=== PATIENT | female | born 1980 | race Caucasian/White ===

== ENCOUNTER 2017-10-21 23:21 | Emergency (ER) | payer OTHER, MEDICAID, SELFPAY ==
[2017-10-21 23:36] VITALS: BP 132/91; PULSE 61; RESP 18; TEMP 36.7; BMI 28.7
[2017-10-22 00:54] VITALS: BP 116/74; PULSE 57; RESP 19; O2SAT 100
[2017-10-22 01:15] LABS: Add Manual Diff / Slide Review NO; Basophils Percent Auto 0.4 % (0-2); Hematocrit 36.1 % (36-46); Hemoglobin 12.2 g/dL (12.0-16.0); Lymphocytes Percent Auto 31.6 % (25-40); Mean Corpuscular HGB Conc 33.7 % (30-36); Mean Corpuscular Hemoglobin 29.8 PG (26-34); Mean Corpuscular Volume 88.4 fL (80-100); Neutrophils Absolute Auto 5400 /uL (3000-5900); Platelet Count 329 X10^3/uL (150-400); Red Blood Cell Count 4.09 X10^6/uL (4.0-5.2); Red Cell Distribution Width 14.6 % (11.6-14.8); White Blood Cell Count 9.4 X10^3/uL (4.5-11.0)
[2017-10-22 01:19] LABS: Alanine Aminotransferase 22 IU/L (9-52); Albumin Globulin Ratio 1.3 (1.0-2.8); Alkaline Phosphatase 72 U/L (38-126); Aspartate Aminotransferase 23 IU/L (14-36); Bilirubin Total 0.2 mg/dL (0.2-1.3); Blood Urea Nitrogen 16 mg/dL (7-17); Calcium 9.1 mg/dL (8.4-10.2); Carbon Dioxide 25 mmol/L (22-32); Chloride 105 mmol/L (98-107); Estimated Glomerular Filt Rate > 60.0 mL/min (>60); Globulin 3.2 g/dL (1.7-4.1); Glucose 94 mg/dL (70-100); HEMOLYSIS < 15 (0-50); Lipase 36 U/L (23-300); Potassium 3.7 mmol/L (3.4-5.1); Sodium 141 mmol/L (137-145); Total Protein 7.2 g/dL (6.3-8.2)
[2017-10-22] MEDS: ONDANSETRON 4 MG/2 ML INJ IV (02:27)
[2017-10-22] MEDS: SODIUM CHLORIDE 0.9% 1,000 ML 1000 ML IV (02:27)
[2017-10-22] MEDS: HYDROMORPHONE 0.5 MG INJ IV (02:28)
[2017-10-22 02:34] VITALS: BP 111/75; PULSE 53; RESP 12; O2SAT 98
--- NOTE | 2017-10-22 02:53 | DI.US.S_ITS ---
PROCEDURE: US ABDOMEN COMPLETE INDICATIONS: ruq and epigastric pain TECHNIQUE: Real-time scanning was performed of the abdominal and retroperitoneal organs, with image documentation. COMPARISON: [facility], CT, ABDOMEN/PELVIS WITH CONTRAST, 01/12/2014, 22:31. FINDINGS: Liver: Liver is normal in size and homogeneous in echotexture. Gallbladder: No gallstones identified. Normal gallbladder wall. No pericholecystic fluid. Negative sonographic Montoya sign. Biliary ducts: Intrahepatic bile ducts are non-dilated. Extrahepatic bile duct caliber measures 3.7 mm. Normal is 6-7 mm or less in diameter, or 10 mm or less post-cholecystectomy. Pancreas: Visualized portions of the pancreas are sonographically normal. Spleen: Spleen is normal in size and homogeneous in echotexture. Kidneys: Kidneys are normal in size and echotexture. Right kidney measures 11.0 cm long; left kidney measures 10.9 cm long. No hydronephrosis or nephrolithiasis. No solid masses. 1 cm simple right renal cyst. Aorta: Visualized aorta is normal in caliber at less than 3 cm. Iliacs: Proximal common iliac arteries are normal in caliber at less than 2.5 cm. IVC: Intrahepatic inferior vena cava is patent. Miscellaneous: No free abdominal fluid. IMPRESSION: No source for right upper quadrant pain identified sonographically. Dictated by: Wally Wagner Ronni Interpreted: Ellyn Hardy MD on 10/22/2017 at 7:34 Approved by: Ellyn Hardy MD, PhD on 10/22/2017 at 13:51
[2017-10-22] MEDS: MAG HYDROX/ALUM/SIMETH 30 ML UDC PO (03:16)
[2017-10-22 03:19] VITALS: BP 118/73; PULSE 56; RESP 18; O2SAT 97
--- NOTE | 2017-10-22 04:43 | DI.RAD.S_ITS ---
PROCEDURE: XR CHEST 1V INDICATIONS: epigastric pain TECHNIQUE: One view of the chest was acquired. COMPARISON: [facility], CR, XR CHEST 1VW (PORTABLE), 05/15/2016, 19:50. FINDINGS: Surgical changes and devices: None. Lungs and pleura: No pleural effusions or pneumothorax. Slight streaky retrocardiac opacity. Mediastinum: Mediastinal contours appear normal. Heart size is normal. Bones and chest wall: No suspicious bony lesions. Overlying soft tissues appear unremarkable. IMPRESSION: Slight streaky retrocardiac opacity. This could be represent atelectasis versus developing airspace disease recommend clinical correlation. Dictated by: Cassandra Viramontes M.D. on 10/22/2017 at 9:22 Approved by: Cassandra Viramontes M.D. on 10/22/2017 at 9:24
[2017-10-22 05:08] VITALS: BP 126/78; PULSE 44; RESP 10; O2SAT 100
[2017-10-22 05:12] LABS: Troponin I < 0.012 ng/mL (0.01-0.034)
--- NOTE | 2017-10-22 05:42 | ED.ABDPAIN ---
HPI - Abdominal Pain General Chief Complaint: Abdominal Pain Stated Complaint: ABD PAIN, NAUSEA Time Seen by Provider: 10/22/17 01:04 History of Present Illness HPI narrative: HPI 37-year-old female recently treated for UTI who terminated her antibiotics really presents for evaluation poorly characterized diffuse but largely epigastric abdominal discomfort, reports dark stool, also endorses taking 800 mg ibuprofen TID for treatment of long-standing right hand pain. Patient denies fever, chills, diarrhea, nausea, vomiting. M/S/F/SocHx notable for: please see HPI; remainder reviewed with patient and in chart. ROS: Negative constitutional, eye, cardiovascular, pulmonary, GI, , MSK, skin, neurologic, psychiatric, endocrine unless noted in the HPI. Exam Gen: Pleasant, non-toxic appearing, resting comfortably. HEENT: NC, AT, PEERL, EOMI. Resp: Clear to auscultation bilaterally, normal work of breathing, no accessory muscle usage. Card: Regular rate and rhythm with no murmurs, rubs, or gallops, extremities warm and well perfused. GI: predominately epigastric tenderness to palpation, no rebound, no guarding, otherwise nontender to palpation throughout all quadrants, no focal tenderness at McBurney's point, equivocal Montoya's sign, non-distended, no rebound or guarding. : No suprapubic tenderness to palpation. MSK: No visible deformities, strength and tone without visually appreciable deficit. Skin: Normal color with no visible lesions. Neuro: AO x 3, no facial asymmetry, vision and hearing WNL. Psych: Mood and affect appropriate. Labs / Imaging: WBC 9.4, Hb 12.2, Na 141, K 3.7, total bilirubin 0.2, AST 23, ALT 22, ALP 72, lipase 36, troponin <0.012 EKG: sinus bradycardia, no ST segment elevations or depressions, no LBBB. CXR: No acute cardiopulmonary disease process. No focal infiltrate, cardiomegaly, rib fractures, or mediastinal widening, lung markings extend to the periphery bilaterally and there are no deep sulci. Radiologist's read pending. negative, FOBT negative UA - negative nitrate, negative leukocyte esterase, negative occult blood. US RUQ: small right renal cyst. MDM Previous chart, nursing note, labs, imaging, and vitals reviewed. A: 37-year-old female recently treated for UTI who terminated her antibiotics really presents for evaluation poorly characterized diffuse but largely epigastric abdominal discomfort, reports dark stool, also endorses taking 800 mg ibuprofen TID for treatment of long-standing right hand pain. DDx: UTI, pyelonephritis, ureterolithiasis, pancreatitis, biliary disease, ulcer, gastritis, pericarditis, myocarditis, ACS, PE Evaluation: patient with a unclear symptom constellation, given the epigastric pain, NSAID use, and dark stools gastritis and/or ulcer appears to be highest on the differential, however/reassuringly patient has a negative FOBT. Given the right upper quadrant pain ultrasound was obtained, this was without evidence of abnormality. EKG is without evidence of ischemia, pericarditis and the patient's troponin is negative - effectively excluding varicose, recruiters, ACS. Chest x-ray without evidence of abnormality. The patient was instructed to pursue empiric treatment for GERD and patient to follow up with her PCP for further care. Impression: Epigastric pain (please reference below for remainder of encounter information) Related Data Previous Rx's Medication Instructions Recorded albuterol sulfate [Ventolin HFA] 2 puff INH QIDP PRN #3 ea 02/15/17 levothyroxine 0.05 mg PO QAM #30 tab 04/12/17 methylprednisolone 21 tab PO SEE INSTRUCTIONS #1 pac 07/29/17 naproxen [Naprosyn] 500 mg PO BID #60 tab 07/29/17 thyroid (pork) 162.5 mg tablet 162.5 mg PO QDAY #90 tab 08/23/17 ciprofloxacin 500 mg tablet 500 mg PO BID #10 tab 10/15/17 ibuprofen 800 mg tablet 800 mg PO TID #90 tab 10/15/17 lorazepam 0.5 mg tablet 0.5 mg PO Q8HP PRN #60 tab 10/15/17 Allergies Allergy/AdvReac Type Severity Reaction Status Date / Time amoxicillin [AMOXICILLIN] Allergy Mild HIVES Verified 10/15/17 15:26 Penicillins [PENICILLINS] Allergy Unknown Verified 10/15/17 15:26 morphine [MORPHINE] AdvReac Mild HALLUCINATI Verified 10/15/17 15:26 ONS oxycodone [OXYCODONE] AdvReac Mild VOMITING Verified 10/15/17 15:26 PFSH Social History Smoking Status: Never smoker alcohol intake: current substance use type: does not use Exam Initial Vital Signs Initial Vital Signs: Vital Signs Temperature 98.1 F 10/21/17 23:36 Pulse Rate 61 10/21/17 23:36 Respiratory Rate 18 10/21/17 23:36 Blood Pressure 132/91 H 10/21/17 23:36 Course Orders Ordered: ED Orders 10/22/17 EKG-12 Lead Routine 10/22/17 00:50 Complete Blood Count AUTO DIFF Stat Comprehensive Metabolic Panel Stat Lipase Stat Troponin I Stat 10/22/17 02:53 US abdomen complete Stat 10/22/17 04:43 XR chest 1V Stat Hydromorphone HCl (Dilaudid) 0.5 mg IV NOW PRN PRN Reason: pain Last Admin: 10/22/17 02:28 Dose: 0.5 mg Discontinued Medications Al Hydrox/Mg Hydrox/Simethicone (Maalox Plus) 30 ml PO NOW ONE Stop: 10/22/17 02:54 Last Admin: 10/22/17 03:16 Dose: 30 ml Sodium Chloride (Normal Saline 0.9%) 1,000 mls @ 1,000 mls/hr IV BOLUS ONE Stop: 10/22/17 02:03 Last Infusion: 10/22/17 03:41 Dose: 0 mls/hr Admin: 10/22/17 02:27 Dose: 1,000 mls/hr Ondansetron HCl (Zofran) 4 mg IV NOW ONE Stop: 10/22/17 01:05 Last Admin: 10/22/17 02:27 Dose: 4 mg Vital Signs - 8 hr 10/21/17 23:36 10/22/17 00:54 10/22/17 02:34 Temperature 98.1 F Pulse Rate 61 57 L 53 L Respiratory Rate 18 19 12 Blood Pressure 132/91 H Blood Pressure [Left Arm] 116/74 111/75 Pulse Oximetry 100 98 10/22/17 03:19 10/22/17 05:08 Temperature Pulse Rate 56 L 44 L Respiratory Rate 18 10 L Blood Pressure Blood Pressure [Left Arm] 118/73 126/78 H Pulse Oximetry 97 100 MDM - Abdominal Pain Lab Data Result diagrams: 10/22/17 00:50 10/22/17 00:50 Lab Results 10/22/17 10/22/17 10/22/17 Range/Units 00:50 00:50 00:50 WBC 9.4 (4.5-11.0) X10^3/uL RBC 4.09 (4.0-5.2) X10^6/uL Hgb 12.2 (12.0-16.0) g/dL Hct 36.1 (36-46) % MCV 88.4 (80-100) fL MCH 29.8 (26-34) PG MCHC 33.7 (30-36) % RDW 14.6 (11.6-14.8) % Plt Count 329 (150-400) X10^3/uL Neut % (Auto) 58.0 (50-75) % Lymph % (Auto) 31.6 (25-40) % [place] % (Auto) 7.0 (3-14) % Eos % (Auto) 3.0 (2-4) % Baso % (Auto) 0.4 (0-2) % Neut # (Auto) 5400 (5025-4878) /uL Sodium 141 (137-145) mmol/L Potassium 3.7 (3.4-5.1) mmol/L Chloride 105 (98-107) mmol/L Carbon Dioxide 25 (22-32) mmol/L BUN 16 (7-17) mg/dL Creatinine 0.80 (0.52-1.04) mg/dL Estimated GFR > 60.0 (>60) mL/min BUN/Creatinine Ratio 20.0 (6-22) Glucose 94 (70-100) mg/dL Calcium 9.1 (8.4-10.2) mg/dL Total Bilirubin 0.2 (0.2-1.3) mg/dL AST 23 (14-36) IU/L ALT 22 (9-52) IU/L Alkaline Phosphatase 72 (38-126) U/L Troponin I < 0.012 (0.01-0.034) ng/mL Total Protein 7.2 (6.3-8.2) g/dL Albumin 4.0 (3.5-5.0) g/dL Globulin 3.2 (1.7-4.1) g/dL Albumin/Globulin Ratio 1.3 (1.0-2.8) Lipase 36 (23-300) U/L Point of care testing: Point of Care Testing Test Results Negative Stool Occult Blood Negative Urine Dip Bedside Urine Glucose Negative Bedside Urine Bilirubin - Negative Bedside Urine Ketone - Negative Urine Specific [place] 1.015 Bedside Urine Occult Blood - Negative Bedside Urine pH 7.5 Bedside Urine Protein - Negative Bedside Urine Urobilinogen - Negative Bedside Urine Nitrite - Negative Bedside Urine Leukocytes - Negative Esterase Discharge Plan Departure Prescriptions: No Action ciprofloxacin HCl 500 mg tablet 500 mg PO BID Qty: 10 RF: 0 ibuprofen 800 mg tablet 800 mg PO TID Qty: 90 RF: 0 lorazepam 0.5 mg tablet 0.5 mg PO Q8HP PRN (Reason: anxiety) Qty: 60 RF: 3 albuterol sulfate [Ventolin HFA] 90 MCG/PUFF HFA aerosol inhaler 2 puff INH QIDP PRNQty: 3 RF: 11 levothyroxine 50 MCG tablet 0.05 mg PO QAM Qty: 30 RF: 5 methylprednisolone 4 MG tablets,dose pack 21 tab PO SEE INSTRUCTIONS Qty: 1 RF: 0 naproxen [Naprosyn] 500 MG tablet 500 mg PO BID Qty: 60 RF: 1 thyroid (pork) [Nature-Throid] 162.5 mg tablet 162.5 mg PO QDAY Qty: 90 RF: 3
--- NOTE | 2017-10-22 05:45 | ED_ITS ---
HPI - Abdominal Pain General Chief Complaint: Abdominal Pain Stated Complaint: ABD PAIN, NAUSEA Time Seen by Provider: 10/22/17 01:04 History of Present Illness HPI narrative: HPI 37-year-old female recently treated for UTI who terminated her antibiotics really presents for evaluation poorly characterized diffuse but largely epigastric abdominal discomfort, reports dark stool, also endorses taking 800 mg ibuprofen TID for treatment of long-standing right hand pain. Patient denies fever, chills, diarrhea, nausea, vomiting. M/S/F/SocHx notable for: please see HPI; remainder reviewed with patient and in chart. ROS: Negative constitutional, eye, cardiovascular, pulmonary, GI, , MSK, skin , neurologic, psychiatric, endocrine unless noted in the HPI. Exam Gen: Pleasant, non-toxic appearing, resting comfortably. HEENT: NC, AT, PEERL, EOMI. Resp: Clear to auscultation bilaterally, normal work of breathing, no accessory muscle usage. Card: Regular rate and rhythm with no murmurs, rubs, or gallops, extremities warm and well perfused. GI: predominately epigastric tenderness to palpation, no rebound, no guarding, otherwise nontender to palpation throughout all quadrants, no focal tenderness at McBurney's point, equivocal Montoya's sign, non-distended, no rebound or guarding. : No suprapubic tenderness to palpation. MSK: No visible deformities, strength and tone without visually appreciable deficit. Skin: Normal color with no visible lesions. Neuro: AO x 3, no facial asymmetry, vision and hearing WNL. Psych: Mood and affect appropriate. Labs / Imaging: WBC 9.4, Hb 12.2, Na 141, K 3.7, total bilirubin 0.2, AST 23, ALT 22, ALP 72, lipase 36, troponin <0.012 EKG: sinus bradycardia, no ST segment elevations or depressions, no LBBB. CXR: No acute cardiopulmonary disease process. No focal infiltrate, cardiomegaly , rib fractures, or mediastinal widening, lung markings extend to the periphery bilaterally and there are no deep sulci. Radiologist's read pending. negative, FOBT negative UA - negative nitrate, negative leukocyte esterase, negative occult blood. US RUQ: small right renal cyst. MDM Previous chart, nursing note, labs, imaging, and vitals reviewed. A: 37-year-old female recently treated for UTI who terminated her antibiotics really presents for evaluation poorly characterized diffuse but largely epigastric abdominal discomfort, reports dark stool, also endorses taking 800 mg ibuprofen TID for treatment of long-standing right hand pain. DDx: UTI, pyelonephritis, ureterolithiasis, pancreatitis, biliary disease, ulcer , gastritis, pericarditis, myocarditis, ACS, PE Evaluation: patient with a unclear symptom constellation, given the epigastric pain, NSAID use, and dark stools gastritis and/or ulcer appears to be highest on the differential, however/reassuringly patient has a negative FOBT. Given the right upper quadrant pain ultrasound was obtained, this was without evidence of abnormality. EKG is without evidence of ischemia, pericarditis and the patient's troponin is negative - effectively excluding varicose, recruiters , ACS. Chest x-ray without evidence of abnormality. The patient was instructed to pursue empiric treatment for GERD and patient to follow up with her PCP for further care. Impression: Epigastric pain (please reference below for remainder of encounter information) Related Data Previous Rx's Medication Instructions Recorded albuterol sulfate [Ventolin HFA] 2 puff INH QIDP PRN #3 ea 02/15/17 levothyroxine 0.05 mg PO QAM #30 tab 04/12/17 methylprednisolone 21 tab PO SEE INSTRUCTIONS #1 pac 07/29/17 naproxen [Naprosyn] 500 mg PO BID #60 tab 07/29/17 thyroid (pork) 162.5 mg tablet 162.5 mg PO QDAY #90 tab 08/23/17 ciprofloxacin 500 mg tablet 500 mg PO BID #10 tab 10/15/17 ibuprofen 800 mg tablet 800 mg PO TID #90 tab 10/15/17 lorazepam 0.5 mg tablet 0.5 mg PO Q8HP PRN #60 tab 10/15/17 Allergies Allergy/AdvReac Type Severity Reaction Status Date / Time amoxicillin [AMOXICILLIN] Allergy Mild HIVES Verified 10/15/17 15:26 Penicillins [PENICILLINS] Allergy Unknown Verified 10/15/17 15:26 morphine [MORPHINE] AdvReac Mild HALLUCINATI Verified 10/15/17 15:26 ONS oxycodone [OXYCODONE] AdvReac Mild VOMITING Verified 10/15/17 15:26 PFSH Social History Smoking Status: Never smoker alcohol intake: current substance use type: does not use Exam Initial Vital Signs Initial Vital Signs: Vital Signs Temperature 98.1 F 10/21/17 23:36 Pulse Rate 61 10/21/17 23:36 Respiratory Rate 18 10/21/17 23:36 Blood Pressure 132/91 H 10/21/17 23:36 Course Orders Ordered: ED Orders 10/22/17 EKG-12 Lead Routine 10/22/17 00:50 Complete Blood Count AUTO DIFF Stat Comprehensive Metabolic Panel Stat Lipase Stat Troponin I Stat 10/22/17 02:53 US abdomen complete Stat 10/22/17 04:43 XR chest 1V Stat Hydromorphone HCl (Dilaudid) 0.5 mg IV NOW PRN PRN Reason: pain Last Admin: 10/22/17 02:28 Dose: 0.5 mg Discontinued Medications Al Hydrox/Mg Hydrox/Simethicone (Maalox Plus) 30 ml PO NOW ONE Stop: 10/22/17 02:54 Last Admin: 10/22/17 03:16 Dose: 30 ml Sodium Chloride (Normal Saline 0.9%) 1,000 mls @ 1,000 mls/hr IV BOLUS ONE Stop: 10/22/17 02:03 Last Infusion: 10/22/17 03:41 Dose: 0 mls/hr Admin: 10/22/17 02:27 Dose: 1,000 mls/hr Ondansetron HCl (Zofran) 4 mg IV NOW ONE Stop: 10/22/17 01:05 Last Admin: 10/22/17 02:27 Dose: 4 mg Vital Signs - 8 hr 10/21/17 23:36 10/22/17 00:54 10/22/17 02:34 Temperature 98.1 F Pulse Rate 61 57 L 53 L Respiratory Rate 18 19 12 Blood Pressure 132/91 H Blood Pressure [Left Arm] 116/74 111/75 Pulse Oximetry 100 98 10/22/17 03:19 10/22/17 05:08 Temperature Pulse Rate 56 L 44 L Respiratory Rate 18 10 L Blood Pressure Blood Pressure [Left Arm] 118/73 126/78 H Pulse Oximetry 97 100 MDM - Abdominal Pain Lab Data Result diagrams: 10/22/17 00:50 10/22/17 00:50 Lab Results 10/22/17 10/22/17 10/22/17 Range/Units 00:50 00:50 00:50 WBC 9.4 (4.5-11.0) X10^3/uL RBC 4.09 (4.0-5.2) X10^6/uL Hgb 12.2 (12.0-16.0) g/dL Hct 36.1 (36-46) % MCV 88.4 (80-100) fL MCH 29.8 (26-34) PG MCHC 33.7 (30-36) % RDW 14.6 (11.6-14.8) % Plt Count 329 (150-400) X10^3/uL Neut % (Auto) 58.0 (50-75) % Lymph % (Auto) 31.6 (25-40) % [place] % (Auto) 7.0 (3-14) % Eos % (Auto) 3.0 (2-4) % Baso % (Auto) 0.4 (0-2) % Neut # (Auto) 5400 (3745-0217) /uL Sodium 141 (137-145) mmol/L Potassium 3.7 (3.4-5.1) mmol/L Chloride 105 (98-107) mmol/L Carbon Dioxide 25 (22-32) mmol/L BUN 16 (7-17) mg/dL Creatinine 0.80 (0.52-1.04) mg/dL Estimated GFR > 60.0 (>60) mL/min BUN/Creatinine Ratio 20.0 (6-22) Glucose 94 (70-100) mg/dL Calcium 9.1 (8.4-10.2) mg/dL Total Bilirubin 0.2 (0.2-1.3) mg/dL AST 23 (14-36) IU/L ALT 22 (9-52) IU/L Alkaline Phosphatase 72 (38-126) U/L Troponin I < 0.012 (0.01-0.034) ng/mL Total Protein 7.2 (6.3-8.2) g/dL Albumin 4.0 (3.5-5.0) g/dL Globulin 3.2 (1.7-4.1) g/dL Albumin/Globulin Ratio 1.3 (1.0-2.8) Lipase 36 (23-300) U/L Point of care testing: Point of Care Testing Test Results Negative Stool Occult Blood Negative Urine Dip Bedside Urine Glucose Negative Bedside Urine Bilirubin - Negative Bedside Urine Ketone - Negative Urine Specific [place] 1.015 Bedside Urine Occult Blood - Negative Bedside Urine pH 7.5 Bedside Urine Protein - Negative Bedside Urine Urobilinogen - Negative Bedside Urine Nitrite - Negative Bedside Urine Leukocytes - Negative Esterase Discharge Plan Departure Prescriptions: No Action ciprofloxacin HCl 500 mg tablet 500 mg PO BID Qty: 10 RF: 0 ibuprofen 800 mg tablet 800 mg PO TID Qty: 90 RF: 0 lorazepam 0.5 mg tablet 0.5 mg PO Q8HP PRN (Reason: anxiety) Qty: 60 RF: 3 albuterol sulfate [Ventolin HFA] 90 MCG/PUFF HFA aerosol inhaler 2 puff INH QIDP PRNQty: 3 RF: 11 levothyroxine 50 MCG tablet 0.05 mg PO QAM Qty: 30 RF: 5 methylprednisolone 4 MG tablets,dose pack 21 tab PO SEE INSTRUCTIONS Qty: 1 RF: 0 naproxen [Naprosyn] 500 MG tablet 500 mg PO BID Qty: 60 RF: 1 thyroid (pork) [Nature-Throid] 162.5 mg tablet 162.5 mg PO QDAY Qty: 90 RF: 3
[2017-10-22 06:16] VITALS: BP 110/70; PULSE 49; RESP 12; O2SAT 98
== END 2017-10-22 06:25 | disposition home or self-care (01) ==
PROVIDERS: Emergency Provider Emergency Medicine; Family Provider Physician Assistant; PCP Physician Assistant
DX: R10.13 Epigastric pain (principal)
CPT/HCPCS: 36591; 71045; 76700; 80053; 81003; 81025; 82272; 83690; 84484; 85025; 93005; 96361; 96374; 96375; 99283; 99285; J1170; J2405

== ENCOUNTER → 2017-10-24 16:15 | Outpatient (CLI) | payer OTHER, MEDICAID, SELFPAY | PROVIDERS: Family Provider Physician Assistant; PCP Physician Assistant; Referring Provider Physician Assistant; Visit Provider Physician Assistant | DX: E06.3 Autoimmune thyroiditis (principal); Z51.81 Encounter for therapeutic drug level monitoring; R10.13 Epigastric pain | CPT/HCPCS: 83013 ==

== ENCOUNTER → 2017-11-08 11:17 | Outpatient (CLI) | payer OTHER, MEDICAID, SELFPAY ==
--- NOTE | 2017-11-08 14:01 | DI.CT.S_ITS ---
PROCEDURE: CT ABDOMEN PELVIS W CON INDICATIONS: EPIGASTRIC PAIN TECHNIQUE: After the administration of oral and intravenous contrast, 5 mm thick sections acquired from the diaphragms to the symphysis. 5 mm thick coronal and sagittal reformats were performed. For radiation dose reduction, the following was used: automated exposure control, adjustment of mA and/or kV according to patient size. COMPARISON: [facility], US, US ABDOMEN COMPLETE, 10/22/2017, 3:43. [facility], CT, ABDOMEN/PELVIS WITH CONTRAST, 01/12/2014, 22:31. FINDINGS: Image quality: Excellent. ABDOMEN: Lung bases: Lung bases are clear. Heart size is normal. Solid organs: Liver is normal in size and enhancement. Gallbladder appears normal. Biliary system is non-dilated. Pancreas enhances normally. Spleen is normal in size and enhancement. No adrenal nodules. Kidneys are normal in size and enhancement, without hydronephrosis. Peritoneum and bowel: Stomach, small bowel, and colon loops are normal in caliber and wall thickness. No free fluid or air. Nodes and vessels: No retroperitoneal or mesenteric adenopathy. Aorta and inferior vena cava are normal in caliber. Miscellaneous: No ventral hernias. PELVIS: Genitourinary: Bladder wall thickness is normal. The uterus is heterogeneous, somewhat enlarged, and appears to contain multiple uterine fibroids at the fundus. The endometrial lining is somewhat distorted by adjacent presumed submucosal fibroids. Note is made of a cystic structure the left ovary measuring up to 3.1 x 3.2 x 4.9 cm in maximal AP, craniocaudad and oblique transverse dimensions. A small amount of free fluid is seen deep within the cul-de-sac posterior and rightward from the cystic structure at the left adnexa. Miscellaneous: No inguinal hernias or adenopathy. Bones: No suspicious bony lesions. No vertebral body compression fractures. IMPRESSION: Large cystic structure with a small amount of adjacent free fluid at the left adnexa, perhaps reflecting a large cyst with adjacent ruptured cyst, requiring sonographic followup. No right-sided adnexal pathology is seen. Pelvic ultrasound is recommended to establish baseline and further characterize the cystic structure at the left ovary area. Elsewhere throughout the peritoneal space there is no abnormal fluid or evidence of peritoneal carcinomatosis. A source of upper epigastric pain is not found. A normal or abnormal appendix could not be located but no secondary CT evidence of acute appendicitis is seen. Dictated by: Andrew Kelsey M.D. on 11/08/2017 at 16:03 Approved by: Andrew Kelsey M.D. on 11/08/2017 at 16:09
== END ==
PROVIDERS: PCP Family Medicine; Visit Provider Family Medicine
DX: R10.13 Epigastric pain (principal); N94.89 Other specified conditions associated with female genital organs and menstrual cycle
CPT/HCPCS: 74177; Q9967

== ENCOUNTER → 2017-11-26 12:15 | Outpatient (CLI) | payer OTHER, MEDICAID, SELFPAY ==
[2017-11-26 13:51] LABS: Free T3, Triiodothyronine Free 3.33 pg/mL (2.77-5.27)
[2017-11-26 14:04] LABS: Cancer Antigen 125 8 U/mL (0-35)
[2017-11-26 14:08] LABS: Appearance Urine UA CLEAR; Bilirubin Urine UA NEGATIVE (NEGATIVE); Color Urine UA YELLOW; Glucose Urine UA NEGATIVE (Normal); Ketones Urine UA NEGATIVE (NEGATIVE); Leukocyte Esterase Urine UA NEGATIVE (NEGATIVE); Nitrite Urine UA Negative (Negative); Occult Blood Urine UA NEGATIVE (Negative); Protein Urine UA NEGATIVE (Negative); Specific Gravity Urine UA 1.015 (1.000-1.035); Urobilinogen Urine UA 0.2 E.U./dL (0.2)
[2017-11-28 14:50] LABS: Thyroid Peroxidase Antibodies < 1 IU/mL (< 9)
[2017-11-28 15:47] LABS: Triiodothyronine T3 Total 140 ng/dL (76-181)
[2017-11-30 13:45] LABS: Human HE4 Antigen 34 pmol/L
[2017-12-03 12:22] LABS: Triiodothyronine T3 Reverse 6 ng/dL (8-25)
== END ==
PROVIDERS: Physician Assistant; PCP Family Medicine; Visit Provider Obstetrics & Gynecology
DX: E06.3 Autoimmune thyroiditis (principal); Z51.81 Encounter for therapeutic drug level monitoring; N94.9 Unspecified condition associated with female genital organs and menstrual cycle; R31.9 Hematuria, unspecified
CPT/HCPCS: 81003; 84443; 84480; 84481; 84482; 86304; 86305; 86376

== ENCOUNTER 2017-11-30 14:57 | Emergency (ER) | payer OTHER, MEDICAID, SELFPAY ==
[2017-11-30] VITALS (7 sets, daily range): BP systolic 112–157; BP diastolic 67–113; PULSE 48–99; RESP 12–55; TEMP 36.9; O2SAT 98–100
--- NOTE | 2017-11-30 15:13 | DI.CT.S_ITS ---
PROCEDURE: CT HEAD/BRAIN WO CON INDICATIONS: stroke symptoms,tpa candidate TECHNIQUE: Noncontrast 4.5 mm thick angled axial sections acquired from the foramen magnum to the vertex, with coronal and sagittal reformats. For radiation dose reduction, the following was used: automated exposure control, adjustment of mA and/or kV according to patient size. COMPARISON: [facility], CT, HEAD WITHOUT CONTRAST, 02/10/2016, 14:07. FINDINGS: Image quality: Excellent. CSF spaces: Basal cisterns are patent. No extra-axial fluid collections. Ventricles are normal in size and shape. Brain: No midline shift. No intracranial masses or hemorrhage. Cronin-white matter interface is normal. Skull and face: Calvarium and visualized facial bones are intact, without suspicious lesions. Sinuses: Visualized sinuses and mastoids are clear. IMPRESSION: No acute intracranial abnormality. Findings relayed to Dr. Kendrick on 11.30.17 at 1527 hrs. Dictated by: Caitlin Ortega M.D. on 11/30/2017 at 15:25 Approved by: Caitlin Ortega M.D. on 11/30/2017 at 15:27
--- NOTE | 2017-11-30 15:16 | ED.EYEPROB ---
HPI - Eye Problem General Chief complaint: Neuro Symptoms/Deficit Stated complaint: SEEING FLASHING LIGHTS NAUCEOUS AND CONFUSED Time Seen by Provider: 11/30/17 15:13 Source: patient Mode of arrival: ambulatory Limitations: no limitations History of Present Illness HPI Narrative: 37F presents to the ED with chief complaint of R eye vision disturbance which started this morning. She complains of bright flashing or stroke being of the vision in her right eye but denies any visual field cuts. She denies any injury. 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 She does not have ongoing ophthalmological coverage. Patient denies pain, redness or watering of her right eye. She denies any history of similar type symptoms in the past. Her symptoms have been present over the course of the day, she denies any provocation, palliation of her symptoms MD chief complaint: vision change Onset (ago): hour(s) Onset description: sudden Duration: constant Location: right eye Associated symptoms: none Treatments Prior to Arrival: none Related Data Previous Rx's Medication Instructions Recorded albuterol sulfate [Ventolin HFA] 2 puff INH QIDP PRN #3 ea 02/15/17 thyroid (pork) 162.5 mg tablet 162.5 mg PO QDAY #90 tab 08/23/17 lorazepam 0.5 mg tablet 0.5 mg PO Q8HP PRN #60 tab 10/15/17 ondansetron 4 mg disintegrating 4 mg PO Q4H #30 tab 10/24/17 tablet Allergies Allergy/AdvReac Type Severity Reaction Status Date / Time amoxicillin [AMOXICILLIN] Allergy Mild HIVES Verified 11/18/17 14:14 Penicillins [PENICILLINS] Allergy Unknown Verified 11/18/17 14:14 morphine [MORPHINE] AdvReac Mild HALLUCINATI Verified 11/18/17 14:14 ONS oxycodone [OXYCODONE] AdvReac Mild VOMITING Verified 11/18/17 14:14 Review of Systems Review of Systems All systems reviewed & are unremarkable except as noted in HPI and below Constitutional Denies chills, Denies fever(s), Denies lethargy and Denies weakness Eyes Reports change in vision, Denies eye discharge, Denies irritation and Denies loss of vision ENT Ears, Nose, Mouth, and Throat: Denies change in voice, Denies neck pain and Denies sore throat Cardiovascular Denies chest pain, Denies irregular heart rhythm, Denies lightheadedness, Denies palpitations, Denies dyspnea, Denies dyspnea on exertion and Denies orthopnea Respiratory Denies cough, Denies dyspnea, Denies dyspnea on exertion and Denies wheezing Gastrointestinal Gastrointestinal: Denies abdominal pain, Denies change in bowel habits, Denies diarrhea, Denies nausea and Denies vomiting Genitourinary Denies hematuria, Denies flank pain, Denies urinary incontinence and Denies urinary urgency Musculoskeletal Denies neck pain Integumentary/Breasts Denies pruritus, Denies erythema, Denies rash and Denies wounds Neurologic Denies confusion, Denies loss of vision and Denies weakness Psychiatric Denies anxiety, Denies confusion, Denies depression, Denies homicidal ideation and Denies suicidal ideation Endocrine Denies palpitations Hematologic/Lymphatic Denies easy bruising Allergic/Immunologic Denies wheezing [facility] Medical History Allergic rhinitis (Chronic 2008) Anxiety (Chronic Unknown) Asthma (Chronic 2004) Carpal tunnel syndrome (Chronic 2013) Chronic back pain (Chronic 2014) Cyst of ovary (Chronic) Depression (Chronic Unknown) Hypothyroidism (Chronic 2009) Migraines (Chronic 2009) PTSD (post-traumatic stress disorder) (Chronic 2009) Partial blindness (Chronic 1981) Anemia (Resolved 2004) Anorexia nervosa (Resolved 1999) Chicken pox (Resolved 1986) Chickenpox (Resolved 1986) Ovarian cyst (Resolved 2001) Shoulder pain (Resolved 2013) Thyroid cancer (Resolved 2009) Thyroid nodule (Resolved 2000) Vertigo (Inactive 2008) Surgical History Anesthesia complication (Resolved) History of thyroidectomy (Resolved 2009) Hx of eye surgery (Resolved 1984) Hx of removal of cyst (Resolved 2013) Hx of tonsillectomy (Resolved 2001) Status post delivery (Resolved 2007) Social History Smoking Status: Never smoker alcohol intake: current substance use type: does not use Exam Narrative Exam Narrative: GEN: AOx3 and in mild distress EYES: Pupils are equal, round, and reactive to light and accommodation. Extraoccular muscles are intact bilaterally. There is no subconjunctival hemorrhage or exudate. OD pressure 35 mmHg, OS 31mmHG. No clinical signs of acute angle closure glaucoma such as redness, fixed pupil, or watering. Visual acuity 20/40. Bedside ultrasound shows no obvious abnormality and lens position, red neck, or optic nerve sheath CHEST: Lungs are clear to auscultation bilaterally and free of wheezes, rales, or rhonchi. Heart rate is regular rhythm, there are no murmurs, clicks, rubs, or gallops. There is no chest wall tenderness. ABD: Abdomen is soft and nontender. There is no guarding or rebound. Bowel sounds are normal in all 4 quadrants. There is no mass or organomegaly. EXT: Full painless ROM of all extremities with no loss of sensation or strength. SKIN: Warm, pink, and dry. No erythema or rash Initial Vital Signs Initial Vital Signs: Vital Signs Temperature 98.4 F 11/30/17 15:05 Pulse Rate 99 H 11/30/17 15:05 Respiratory Rate 20 11/30/17 15:05 Blood Pressure 157/113 H 11/30/17 15:05 Pulse Oximetry 98 11/30/17 15:05 Course Orders Ordered: ED Orders 11/30/17 15:13 CT head/brain wo con Stat EKG-12 Lead Stat 11/30/17 15:25 Basic Metabolic Panel Stat Complete Blood Count AUTO DIFF Stat Partial Thromboplastin Time Stat Prothrombin Time INR Stat 11/30/17 16:35 Urine Drug Screen, Rapid Stat 11/30/17 17:46 Urinalysis and Microscopic Stat Urine Culture Stat Discontinued Medications Sodium Chloride (Normal Saline 0.9%) 1,000 mls @ 150 mls/hr IV CONT ROSS Timolol Maleate (Timoptic 0.25% Ophth) 1 drops EYE-RIGHT NOW ONE Stop: 11/30/17 18:47 Consultations Consultation #1: Attempts made to reach a local oncologist but no call for Ophthalmology locally. Call placed to our review Ophthalmology to discuss this case. We sure the opinion that waiting until Saturday to be seen and evaluated by Ophthalmology is ill-advised in this patient with monocular vision at baseline. I made attempts to call closer facilities but had little success in arranging more prompt Care. I re-contacted José Miguel whom recommended administering a dose of atenolol and transferring patient to the emergency department. I then was transferred to the attending in the emergency department, Dr. Forbes whom was happy to accept. Patient will come POV. Consultation #2: NO TIMOLOL in our night pharmacy Vital Signs - 8 hr 11/30/17 15:05 11/30/17 16:01 11/30/17 17:07 Temperature 98.4 F Pulse Rate 99 H 54 L 51 L Respiratory Rate 20 55 H 12 Blood Pressure 157/113 H Blood Pressure [Right Arm] 129/88 H 112/71 Pulse Oximetry 98 100 100 11/30/17 18:31 11/30/17 19:45 Temperature Pulse Rate 54 L 53 L Respiratory Rate 14 21 Blood Pressure Blood Pressure [Right Arm] 121/76 H 125/76 H Pulse Oximetry 100 100 MDM - Eye Problem Differential Diagnosis Likely other (Retinal abnormality vs. vitreous hemorrhage vs. migraine equivalent vs. other.) Lab Data Attestation: I reviewed the patient's lab results. Result diagrams: 11/30/17 15:25 11/30/17 15:25 Lab Results 11/30/17 11/30/17 11/30/17 Range/Units 15:25 15:25 15:25 WBC 9.2 (4.5-11.0) X10^3/uL RBC 4.29 (4.0-5.2) X10^6/uL Hgb 12.9 (12.0-16.0) g/dL Hct 38.6 (36-46) % MCV 90.1 (80-100) fL MCH 30.2 (26-34) PG MCHC 33.5 (30-36) % RDW 15.2 H (11.6-14.8) % Plt Count 364 (150-400) X10^3/uL Neut % (Auto) 69.5 (50-75) % Lymph % (Auto) 21.3 L (25-40) % Mathews % (Auto) 6.9 (3-14) % Eos % (Auto) 1.8 L (2-4) % Baso % (Auto) 0.5 (0-2) % Neut # (Auto) 6400 H (2248-8919) /uL PT 12.4 (10.1-12.7) SECONDS INR 1.1 (0.9-1.3) APTT 33 (26.4-36.2) SECONDS Sodium 142 (137-145) mmol/L Potassium 3.5 (3.4-5.1) mmol/L Chloride 100 (98-107) mmol/L Carbon Dioxide 32 (22-32) mmol/L BUN 14 (7-17) mg/dL Creatinine 0.80 (0.52-1.04) mg/dL Estimated GFR > 60.0 (>60) mL/min BUN/Creatinine Ratio 17.5 (6-22) Glucose 91 (70-100) mg/dL Calcium 9.9 (8.4-10.2) mg/dL Urine Color Urine Appearance Urine pH (4.5-8.0) Ur Specific Woodson (1.000-1.035) Urine Protein (Negative) Urine Glucose (UA) (Normal) g/dL Urine Ketones (NEGATIVE) Urine Occult Blood (Negative) Urine Nitrate (Negative) Urine Bilirubin (NEGATIVE) Urine Urobilinogen (0.2) E.U./dL Ur Leukocyte Esterase (NEGATIVE) Urine RBC (0-5/HPF) Urine WBC (0-5/HPF) Urine Bacteria (None) Ur Culture Indicated? Micro UA Comment Urine Opiates Screen (Negative) Ur Oxycodone Screen (Negative) Urine Methadone Screen (Negative) Ur Barbiturates Screen (Negative) U Tricyclic Antidepress (Negative) Ur Phencyclidine Scrn (Negative) Ur Amphetamines Screen (Negative) U Methamphetamines Scrn (Negative) Ur MDMA Scrn (Ecstasy) (Negative) U Benzodiazepines Scrn (Negative) Urine Cocaine Screen (Negative) U Marijuana (THC) Screen (Negative) 11/30/17 11/30/17 Range/Units 16:35 17:46 WBC (4.5-11.0) X10^3/uL RBC (4.0-5.2) X10^6/uL Hgb (12.0-16.0) g/dL Hct (36-46) % MCV (80-100) fL MCH (26-34) PG MCHC (30-36) % RDW (11.6-14.8) % Plt Count (150-400) X10^3/uL Neut % (Auto) (50-75) % Lymph % (Auto) (25-40) % Mathews % (Auto) (3-14) % Eos % (Auto) (2-4) % Baso % (Auto) (0-2) % Neut # (Auto) (8547-8464) /uL PT (10.1-12.7) SECONDS INR (0.9-1.3) APTT (26.4-36.2) SECONDS Sodium (137-145) mmol/L Potassium (3.4-5.1) mmol/L Chloride (98-107) mmol/L Carbon Dioxide (22-32) mmol/L BUN (7-17) mg/dL Creatinine (0.52-1.04) mg/dL Estimated GFR (>60) mL/min BUN/Creatinine Ratio (6-22) Glucose (70-100) mg/dL Calcium (8.4-10.2) mg/dL Urine Color Yellow Urine Appearance Clear Urine pH 7.0 (4.5-8.0) Ur Specific Woodson <=1.005 (1.000-1.035) Urine Protein Negative (Negative) Urine Glucose (UA) Negative (Normal) g/dL Urine Ketones Negative (NEGATIVE) Urine Occult Blood Negative (Negative) Urine Nitrate Negative (Negative) Urine Bilirubin Negative (NEGATIVE) Urine Urobilinogen 0.2 (0.2) E.U./dL Ur Leukocyte Esterase Trace H (NEGATIVE) Urine RBC 0-1/hpf (0-5/HPF) Urine WBC 0-1/hpf (0-5/HPF) Urine Bacteria None seen (None) Ur Culture Indicated? Specimen cultured Micro UA Comment Not Reportable Urine Opiates Screen Negative (Negative) Ur Oxycodone Screen Negative (Negative) Urine Methadone Screen Negative (Negative) Ur Barbiturates Screen Negative (Negative) U Tricyclic Antidepress Negative (Negative) Ur Phencyclidine Scrn Negative (Negative) Ur Amphetamines Screen Negative (Negative) U Methamphetamines Scrn Negative (Negative) Ur MDMA Scrn (Ecstasy) Negative (Negative) U Benzodiazepines Scrn Negative (Negative) Urine Cocaine Screen Negative (Negative) U Marijuana (THC) Screen Negative (Negative) Imaging Data CT scan - head: Radiologist's impression: PROCEDURE: CT HEAD/BRAIN WO CON INDICATIONS: stroke symptoms,tpa candidate TECHNIQUE: Noncontrast 4.5 mm thick angled axial sections acquired from the foramen magnum to the vertex, with coronal and sagittal reformats. For radiation dose reduction, the following was used: automated exposure control, adjustment of mA and/or kV according to patient size. COMPARISON: [facility], CT, HEAD WITHOUT CONTRAST, 02/10/2016, 14:07. FINDINGS: Image quality: Excellent. CSF spaces: Basal cisterns are patent. No extra-axial fluid collections. Ventricles are normal in size and shape. Brain: No midline shift. No intracranial masses or hemorrhage. Cronin-white matter interface is normal. Skull and face: Calvarium and visualized facial bones are intact, without suspicious lesions. Sinuses: Visualized sinuses and mastoids are clear. IMPRESSION: No acute intracranial abnormality. Findings relayed to Dr. Kendrick on 11.30.17 at 1527 hrs. Dictated by: Caitlin Ortega M.D. on 11/30/2017 at 15:25 Approved by: Caitlin Ortega M.D. on 11/30/2017 at 15:27 Critical Care Time Critical Care Time: Yes Total Critical Care Time: 30 Attestation: The high probability of a clinically significant, sudden or life threatening deterioration of the [] system(s) required my full and direct attention, intervention and personal management. The aggregate critical care time was [30] minutes. This time is in addition to time spent performing reported procedures but includes the following: [x] Data Review and interpretation [x] Patient assessment and monitoring of vital signs [x] Documentation [x] Medication orders and management Discharge Plan Departure Patient Disposition: [facility] Clinical Impression: Visual field defect Activity Restrictions/Additional Instructions: Please proceed DIRECTLY TO THE [facility] EMERGENCY [facility]PARTMENT, driving instructions included Tell them you were sent by another Emergency Department and that Dr. Forbes in the Emergency Department is expecting you as is Dr. Villagran (ophthalmology) DO NOT EAT OR DRINK ANYTHING Prescriptions: No Action lorazepam 0.5 mg tablet 0.5 mg PO Q8HP PRN (Reason: anxiety) Qty: 60 RF: 3 ondansetron 4 mg tablet,disintegrating 4 mg PO Q4H Qty: 30 RF: 0 albuterol sulfate [Ventolin HFA] 90 MCG/PUFF HFA aerosol inhaler 2 puff INH QIDP PRNQty: 3 RF: 11 thyroid (pork) [Nature-Throid] 162.5 mg tablet 162.5 mg PO QDAY Qty: 90 RF: 3
[2017-11-30 15:37] LABS: Add Manual Diff / Slide Review NO; Basophils Percent Auto 0.5 % (0-2); Eosinophils Percent Auto 1.8 % (2-4); Hematocrit 38.6 % (36-46); Hemoglobin 12.9 g/dL (12.0-16.0); Lymphocytes Percent Auto 21.3 % (25-40); Mean Corpuscular HGB Conc 33.5 % (30-36); Mean Corpuscular Hemoglobin 30.2 PG (26-34); Mean Corpuscular Volume 90.1 fL (80-100); Monocytes Percent Auto 6.9 % (3-14); Neutrophils Absolute Auto 6400 /uL (3000-5900); Neutrophils Percent Auto 69.5 % (50-75); Platelet Count 364 X10^3/uL (150-400); Red Blood Cell Count 4.29 X10^6/uL (4.0-5.2); Red Cell Distribution Width 15.2 % (11.6-14.8); White Blood Cell Count 9.2 X10^3/uL (4.5-11.0)
[2017-11-30 15:45] LABS: INR 1.1 (0.9-1.3); Prothrombin Time 12.4 SECONDS (10.1-12.7)
[2017-11-30 15:47] LABS: PTT Partial Thromboplastin Tim 33 SECONDS (26.4-36.2)
[2017-11-30 16:05] LABS: BUN Creatinine Ratio 17.5 (6-22); Blood Urea Nitrogen 14 mg/dL (7-17); Calcium 9.9 mg/dL (8.4-10.2); Carbon Dioxide 32 mmol/L (22-32); Chloride 100 mmol/L (98-107); Estimated Glomerular Filt Rate > 60.0 mL/min (>60); Glucose 91 mg/dL (70-100); HEMOLYSIS < 15 (0-50); Potassium 3.5 mmol/L (3.4-5.1); Sodium 142 mmol/L (137-145)
[2017-11-30 17:52] LABS: Bacteria Urine None Seen
[2017-11-30 18:01] LABS: Urine Amphetamines Negative (Negative); Urine Barbiturates Negative (Negative); Urine Benzodiazepines Negative (Negative); Urine Cocaine Negative (Negative); Urine MDMA Negative (Negative); Urine Methadone Negative (Negative); Urine Methamphetamines Negative (Negative); Urine Morphine/Opi cutoff 2000 Negative (Negative); Urine Oxycodone Negative (Negative); Urine Phencyclidine Negative (Negative); Urine Tetrahydrocannabinol Negative (Negative); Urine Tricyclic Antidepressant Negative (Negative)
[2017-11-30 18:01] LABS: Appearance Urine UA CLEAR; Bilirubin Urine UA NEGATIVE (NEGATIVE); Color Urine UA YELLOW; Glucose Urine UA NEGATIVE (Normal); Ketones Urine UA NEGATIVE (NEGATIVE); Leukocyte Esterase Urine UA TRACE (NEGATIVE); Nitrite Urine UA Negative (Negative); Occult Blood Urine UA NEGATIVE (Negative); Protein Urine UA NEGATIVE (Negative); Specific Gravity Urine UA <=1.005 (1.000-1.035); Urobilinogen Urine UA 0.2 E.U./dL (0.2)
[2017-11-30 18:08] LABS: Culture Indicated Urine Specimen Cultured; RBC Urine 0-1/HPF (0-5/HPF); WBC Urine 0-1/HPF (0-5/HPF)
== END 2017-11-30 20:05 | disposition short-term general hospital (02) ==
PROVIDERS: Emergency Provider Emergency Medicine; PCP Family Medicine
DX: H53.40 Unspecified visual field defects (principal)
CPT/HCPCS: 36591; 70450; 80048; 80305; 81001; 82962; 85025; 85610; 85730; 87086; 93005; 93010; 99283; 99285

== ENCOUNTER → 2018-03-06 12:24 | Outpatient (CLI) | payer OTHER, MEDICAID, SELFPAY ==
[2018-03-06 13:46] LABS: Thyroid Stimulating Hormone 1.56 uIU/mL (0.47-4.68)
== END ==
PROVIDERS: PCP Family Medicine; Visit Provider Family Medicine
DX: R79.89 Other specified abnormal findings of blood chemistry (principal); Z85.850 Personal history of malignant neoplasm of thyroid
CPT/HCPCS: 36415; 84443

== ENCOUNTER → 2018-07-25 14:27 | Outpatient (CLI) | payer OTHER, MEDICAID, SELFPAY ==
[2018-07-25 15:26] LABS: Add Manual Diff / Slide Review NO; Basophils Absolute Auto 0 /uL (0-100); Basophils Percent Auto 0.4 % (0-2); Eosinophils Absolute Auto 300 /uL (0-450); Eosinophils Percent Auto 2.7 % (2-4); Hematocrit 40.1 % (36-46); Hemoglobin 13.1 g/dL (12.0-16.0); Lymphocytes Absolute Auto 2100 /uL (1100-4500); Lymphocytes Percent Auto 19.8 % (25-40); Mean Corpuscular HGB Conc 32.8 % (30-36); Mean Corpuscular Hemoglobin 29.4 PG (26-34); Mean Corpuscular Volume 89.7 fL (80-100); Monocytes Absolute Auto 700 /uL (0-900); Monocytes Percent Auto 6.5 % (3-14); Neutrophils Absolute Auto 7400 /uL (1500-7000); Neutrophils Percent Auto 70.6 % (50-75); Platelet Count 359 X10^3/uL (150-400); Red Blood Cell Count 4.47 X10^6/uL (4.0-5.2); White Blood Cell Count 10.5 X10^3/uL (4.5-11.0)
[2018-07-25 16:34] LABS: Thyroid Stimulating Hormone 4.38 uIU/mL (0.47-4.68)
== END ==
PROVIDERS: PCP Family Medicine; Visit Provider Nurse Practitioner Family
DX: E89.0 Postprocedural hypothyroidism (principal); R23.8 Other skin changes
CPT/HCPCS: 36415; 84443; 85025

== ENCOUNTER → 2018-12-16 11:53 | Outpatient (CLI) | payer OTHER, MEDICAID, SELFPAY ==
[2018-12-16 12:52] LABS: Add Manual Diff / Slide Review NO; Basophils Absolute Auto 0 /uL (0-100); Basophils Percent Auto 0.2 % (0-2); Eosinophils Absolute Auto 300 /uL (0-450); Eosinophils Percent Auto 4.2 % (2-4); Hematocrit 39.8 % (36-46); Hemoglobin 12.9 g/dL (12.0-16.0); Lymphocytes Absolute Auto 1600 /uL (1100-4500); Lymphocytes Percent Auto 21.5 % (25-40); Mean Corpuscular HGB Conc 32.4 % (30-36); Mean Corpuscular Hemoglobin 29.2 PG (26-34); Monocytes Absolute Auto 400 /uL (0-900); Monocytes Percent Auto 5.8 % (3-14); Neutrophils Absolute Auto 5000 /uL (1500-7000); Neutrophils Percent Auto 68.3 % (50-75); Platelet Count 338 X10^3/uL (150-400); Red Blood Cell Count 4.42 X10^6/uL (4.0-5.2); Red Cell Distribution Width 13.2 % (11.6-14.8); White Blood Cell Count 7.2 X10^3/uL (4.5-11.0)
[2018-12-16 14:08] LABS: Free T3, Triiodothyronine Free 6.33 pg/mL (2.77-5.27); Free T4, Direct Thyroxine 0.77 ng/dL (0.78-2.19)
[2018-12-16 14:21] LABS: Thyroid Stimulating Hormone 0.93 uIU/mL (0.47-4.68)
== END ==
PROVIDERS: PCP Family Medicine; Visit Provider Nurse Practitioner Family
DX: E89.0 Postprocedural hypothyroidism (principal); Z85.850 Personal history of malignant neoplasm of thyroid
CPT/HCPCS: 36415; 84439; 84443; 84481; 85025

== ENCOUNTER → 2019-02-10 11:25 | Outpatient (CLI) | payer OTHER, MEDICAID, SELFPAY | PROVIDERS: PCP Family Medicine; Visit Provider Nurse Practitioner Family | DX: E89.0 Postprocedural hypothyroidism (principal) | CPT/HCPCS: 36415; 84443 ==

== ENCOUNTER 2019-04-24 23:00 | Emergency (ER) | payer OTHER, MEDICAID, SELFPAY ==
--- NOTE | 2019-04-24 23:08 | ED_ITS ---
HPI - Fever General Chief Complaint: Upper Respiratory Symptoms Stated Complaint: states has the flu, trouble breathing Time Seen by Provider: 04/24/19 23:04 Source: patient and family Mode of arrival: Ambulatory Limitations: no limitations History of Present Illness HPI Narrative: 39F nonsmoker with history of asthma presents with 24 hours of fever, body aches, and cough. Two of her children were diagnosed with flu about 10 days ago. She's had some extra use of her bronchodilators, but otherwise has no significant respiratory trouble. She's had no vomiting or diarrhea. MD complaint: fever and malaise Onset (ago): hour(s) Temperature Source: subjective Context: sick contacts and other(s) with similar symptoms Associated symptoms: myalgias, headache, nasal congestion, sore throat and cough Relieving factors: nothing Exacerbating factors: nothing Treatments prior to arrival fever: acetaminophen and ibuprofen Related Data Previous Rx's Medication Instructions Recorded lorazepam 0.5 mg tablet 0.5 mg PO Q8HP PRN #20 tab 07/16/18 albuterol sulfate 90 mcg/actuation 2 puff INHALATION QIDP PRN #2 each 07/25/18 aerosol inhaler thyroid (pork) 15 mg tablet 15 mg PO DAILY #90 tab 02/11/19 thyroid (pork) 120 mg tablet 120 mg PO DAILY #90 tab 03/11/19 thyroid (pork) 30 mg tablet 30 mg PO DAILY #90 tab 03/11/19 ondansetron 4 mg PO TID-QID PRN #10 tab 04/25/19 oseltamivir [Tamiflu] 75 mg PO BID 5 Days #10 cap 04/25/19 Allergies Allergy/AdvReac Type Severity Reaction Status Date / Time amoxicillin [AMOXICILLIN] Allergy Mild HIVES Verified 01/22/19 11:38 Penicillins [PENICILLINS] Allergy Unknown Verified 01/22/19 11:38 morphine [MORPHINE] AdvReac Mild HALLUCINATI Verified 01/22/19 11:38 ONS oxycodone [OXYCODONE] AdvReac Mild VOMITING Verified 01/22/19 11:38 Review of Systems Constitutional Constitutional: Reports body ache(s), Reports chills, Reports fatigue, Reports fever(s), Denies frequent falls, Denies lethargy and Denies weakness Eyes Eyes: Denies change in vision, Denies eye discharge, Denies irritation and Denies loss of vision ENT Ears, Nose, Mouth, and Throat: Denies change in voice, Denies dizziness, Denies neck pain, Reports sore throat and Denies throat swelling Cardiovascular Cardiovascular: Denies chest pain, Denies irregular heart rhythm, Denies lightheadedness, Denies palpitations, Denies dyspnea, Denies dyspnea on exertion and Denies orthopnea Respiratory Respiratory: Reports cough, Denies dyspnea, Denies dyspnea on exertion and Denies wheezing Gastrointestinal Gastrointestinal: Denies abdominal pain, Denies change in bowel habits, Denies diarrhea, Denies nausea and Denies vomiting Genitourinary Genitourinary: Denies hematuria, Denies flank pain, Denies urinary incontinence and Denies urinary urgency Musculoskeletal Musculoskeletal: Denies back pain, Denies muscle weakness, Denies neck pain, Denies numbness and Denies tingling Integumentary/Breasts Skin/Breast: Denies pruritus, Denies erythema, Denies rash and Denies wounds Neurologic Neurologic: Denies behavioral changes, Denies confusion, Denies dizziness, Denies frequent falls, Denies loss of vision, Denies numbness, Denies tingling and Denies weakness Psychiatric Psychiatric: Denies anxiety, Denies behavioral changes, Denies confusion, Denies depression, Denies homicidal ideation and Denies suicidal ideation Endocrine Endocrine: Reports fatigue, Denies flushing and Denies palpitations Hematologic/Lymphatic Hematologic/Lymphatic: Denies easy bruising Allergic/Immunologic Allergic/Immunologic: Denies urticaria, Denies throat swelling and Denies wheezing Patient History Medical History Allergic rhinitis (Chronic 2008) Anemia (Resolved 2004) Anorexia nervosa (Resolved 1999) Anxiety (Chronic Unknown) Asthma (Chronic 2004) Carpal tunnel syndrome (Chronic 2013) Chicken pox (Resolved 1986) Chickenpox (Resolved 1986) Chronic back pain (Chronic 2014) Cyst of ovary (Chronic) Depression (Chronic Unknown) Hypothyroidism (Chronic 2008) Migraines (Chronic 2009) Ovarian cyst (Resolved 2001) Partial blindness (Chronic 1981) PTSD (post-traumatic stress disorder) (Chronic 2009) Shoulder pain (Resolved 2013) Thyroid cancer (Resolved 2009) Thyroid nodule (Resolved 2000) Vertigo (Inactive 2008) Surgical History Anesthesia complication (Resolved) History of thyroidectomy (Resolved 2009) Hx of eye surgery (Resolved 1984) Hx of removal of cyst (Resolved 2013) Hx of tonsillectomy (Resolved 2001) Status post delivery (Resolved 2007) Family History Father Dementia Mental health problem Addiction Mother Diabetes mellitus Heart attack Hypertension Uterine cancer Heart disease Grandfather Cancer Heart disease Hypertension Hyperlipidemia Stroke Pancreatic cancer Lung cancer Grandmother Diabetes mellitus Hypertension Mental health problem Blood infection Grandfather Heart disease Stroke Grandmother Diabetes mellitus Social History Smoking Status: Never smoker alcohol intake: current substance use type: does not use Smoking Status: Never smoker alcohol intake frequency: 0-2 drinks per day Substance Use Type: does not use Exam Narrative Exam Narrative: GENERAL: [39] year old patient appears stated age. Well- nourished, well-developed patient, in mild distress. HEAD: Atraumatic. Normocephalic. EYES: Pupils equal round and reactive. Extraocular motions intact. No scleral icterus. No injection or drainage. ENT: Nose without bleeding, purulent drainage. Throat without erythema, tonsillar hypertrophy or exudate. Airway patent. NECK: Trachea midline. Non tender CARDIOVASCULAR: Regular rate and rhythm without murmurs, gallops, or rubs. RESPIRATORY: Clear to auscultation. Breath sounds equal bilaterally. No wheezes, rales, or rhonchi. GASTROINTESTINAL: Abdomen soft, non-tender, nondistended. EXTREMITIES: No edema or joint tenderness. BACK: Nontender without deformity or crepitance. No flank tenderness. NEURO: AOx3. SKIN: No rash or erythema of visible areas Initial Vital Signs Initial Vital Signs: Vital Signs Temperature 99 F 04/24/19 23:10 Pulse Rate 104 H 04/24/19 23:10 Respiratory Rate 20 04/24/19 23:10 Blood Pressure 118/74 04/24/19 23:10 Pulse Oximetry 98 04/24/19 23:10 Course Orders Ordered: ED Orders 04/24/19 23:09 XR chest 2V Stat 04/24/19 23:15 Influenza A & B (PCR) Stat Discontinued Medications Ondansetron HCl (Zofran Odt Prepack) 1 bottle MISC SEEINSTR ONE Stop: 04/25/19 00:21 Last Admin: 04/25/19 00:33 Dose: 1 bottle Documented by: HGZHANEN Vital Signs Vital signs: Vital Signs - 8 hr 04/24/19 23:10 04/25/19 00:39 Temperature 99 F Pulse Rate 104 H 68 Respiratory Rate 20 18 Blood Pressure 118/74 114/73 Pulse Oximetry 98 94 MDM - Fever Lab Data Labs: Lab Results 04/24/19 Range/Units 23:15 Influenza A (RT-PCR) Flu a negative (NEGATIVE) Influenza B (RT-PCR) Flu b positive H (NEGATIVE) Imaging Data Chest x-ray: Attestation: I personally reviewed and interpreted this imaging study as follows: My Impression: NAP Discharge Plan Departure Patient Disposition: Home Clinical Impression: Influenza B Discharge Date/Time: 04/25/19 00:45 Instructions: DI for Influenza -- Adult Activity Restrictions/Additional Instructions: *You have been diagnosed with [influenza B] *What to do: *Take medications as directed *Follow up with your primary care provider in 2-3 days, call for an appointment. Let them know you were seen in the Emergency Department and that we ask that you be seen in follow up *Return to ER if you should have any new, worsening or concerning symptoms Prescriptions: New oseltamivir [Tamiflu] 75 mg capsule 75 mg PO BID 5 Days Qty: 10 RF: 0 ondansetron 4 mg tablet,disintegrating 4 mg PO TID-QID PRN (Reason: nausea and vomiting) Qty: 10 RF: 0 No Action albuterol sulfate [Ventolin HFA] 90 mcg/actuation HFA aerosol inhaler 2 puff INHALATION QIDP PRN (Reason: shortness of breath or wheezing) Qty: 2 RF: 11 lorazepam 0.5 mg tablet 0.5 mg PO Q8HP PRN (Reason: anxiety) Qty: 20 RF: 0 thyroid (pork) 15 mg tablet 15 mg PO DAILY Qty: 90 RF: 0 thyroid (pork) [CAPPER MACHINE OPERATOR Thyroid] 120 mg tablet 120 mg PO DAILY Qty: 90 RF: 0 thyroid (pork) [CAPPER MACHINE OPERATOR Thyroid] 30 mg tablet 30 mg PO DAILY Qty: 90 RF: 0 Referrals: Grant,Kimberly, DO [Primary Care Provider] -
--- NOTE | 2019-04-24 23:09 | DI.RAD.S_ITS ---
PROCEDURE: XR CHEST 2V INDICATIONS: Short of breath TECHNIQUE: 2 views of the chest were acquired. COMPARISON: [facility], CR, XR CHEST 1V, 10/22/2017, 4:49. FINDINGS: Surgical changes and devices: None. Lungs and pleura: Lungs are clear. No pleural effusions or pneumothorax. Mediastinum: Mediastinal contours are normal. Heart size is normal. Bones and chest wall: No suspicious bony abnormalities. Soft tissues appear unremarkable. IMPRESSION: Normal chest plain films. Dictated by: Artis Haywood M.D. on 04/25/2019 at 8:44 Approved by: Artis Haywood M.D. on 04/25/2019 at 8:45
[2019-04-24 23:10] VITALS: BP 118/74; PULSE 104; RESP 20; TEMP 37.2; O2SAT 98
[2019-04-24 23:47] LABS: Influenza A - CEPHEID Flu A NEGATIVE (NEGATIVE); Influenza B - CEPHEID Flu B POSITIVE (NEGATIVE)
[2019-04-25] MEDS: ONDANSETRON 4 MG ODT PREPACK 1 BOTTLE MISC (00:33)
[2019-04-25 00:39] VITALS: BP 114/73; PULSE 68; RESP 18; O2SAT 94
== END 2019-04-25 00:45 | disposition home or self-care (01) ==
PROVIDERS: Emergency Provider Emergency Medicine; PCP Family Medicine
DX: J10.1 Influenza due to other identified influenza virus with other respiratory manifestations (principal)
CPT/HCPCS: 71046; 87502; 99283

== ENCOUNTER → 2019-05-27 13:03 | Outpatient (CLI) | payer OTHER, MEDICAID, SELFPAY ==
[2019-05-27 16:32] LABS: Thyroid Stimulating Hormone 2.96 uIU/mL (0.47-4.68)
== END ==
PROVIDERS: PCP Family Medicine; Referring Provider Nurse Practitioner Family; Visit Provider Nurse Practitioner Family
DX: E03.9 Hypothyroidism, unspecified (principal)
CPT/HCPCS: 36415; 84443

== ENCOUNTER 2019-07-07 19:24 | Emergency (ER) | payer OTHER, MEDICAID, SELFPAY ==
--- NOTE | 2019-07-07 19:30 | ED.EXTPRO ---
HPI - Extremity Problem General Chief complaint: Extremity Injury, Lower Stated complaint: rt foot pain Time Seen by Provider: 07/07/19 19:29 Source: patient and old records reviewed Mode of arrival: Ambulatory Limitations: no limitations History of Present Illness HPI Narrative: 39-year-old female who comes to the emergency department complaint of pain in her right foot. Patient states she dropped a can of food on her right foot from above her head when getting out of a cabinet. Patient states she has pain. She denies any numbness or tingling. Patient states it is painful to walk. It is painful her to flex or extend her foot. Painful to move her toes. She has a small cut on her foot. She states her tetanus is up-to-date. She denies any other current issues recently. That she has also had history of cancer in the past. Related Data Previous Rx's Medication Instructions Recorded lorazepam 0.5 mg tablet 0.5 mg PO Q8HP PRN #20 tab 07/16/18 albuterol sulfate 90 mcg/actuation 2 puff INHALATION QIDP PRN #2 each 07/25/18 aerosol inhaler ondansetron 4 mg PO TID-QID PRN #10 tab 04/25/19 thyroid (pork) 120 mg tablet 120 mg PO DAILY #90 tab 05/27/19 thyroid (pork) 15 mg tablet 15 mg PO DAILY #90 tab 05/27/19 thyroid (pork) 30 mg tablet 30 mg PO DAILY #90 tab 05/27/19 Allergies Allergy/AdvReac Type Severity Reaction Status Date / Time amoxicillin [AMOXICILLIN] Allergy Mild HIVES Verified 01/22/19 11:38 Penicillins [PENICILLINS] Allergy Unknown Verified 01/22/19 11:38 morphine [MORPHINE] AdvReac Mild HALLUCINATI Verified 01/22/19 11:38 ONS oxycodone [OXYCODONE] AdvReac Mild VOMITING Verified 01/22/19 11:38 Review of Systems Review of Systems ROS Unobtainable: All systems reviewed & are unremarkable except as noted in HPI and below Patient History Medical History Allergic rhinitis (Chronic 2008) Anemia (Resolved 2004) Anorexia nervosa (Resolved 1999) Anxiety (Chronic Unknown) Asthma (Chronic 2004) Carpal tunnel syndrome (Chronic 2014) Chicken pox (Resolved 1986) Chickenpox (Resolved 1986) Chronic back pain (Chronic 2015) Cyst of ovary (Chronic) Depression (Chronic Unknown) Hypothyroidism (Chronic 2008) Migraines (Chronic 2009) Ovarian cyst (Resolved 2001) Partial blindness (Chronic 1981) PTSD (post-traumatic stress disorder) (Chronic 2009) Shoulder pain (Resolved 2013) Thyroid cancer (Resolved 2009) Thyroid nodule (Resolved 2000) Vertigo (Inactive 2008) Surgical History Anesthesia complication (Resolved) History of thyroidectomy (Resolved 2009) Hx of eye surgery (Resolved 1984) Hx of removal of cyst (Resolved 2013) Hx of tonsillectomy (Resolved 2001) Status post delivery (Resolved 2007) Social History Smoking Status: Never smoker alcohol intake: current substance use type: does not use Smoking Status: Never smoker alcohol intake frequency: 0-2 drinks per day Substance Use Type: does not use Exam Narrative Exam Narrative: GENERAL: Alert and oriented x three, well-nourished female in mild distress. HEENT: Head normocephalic, atraumatic, EOMI, pupils reactive, face symmetric, moist mucous membranes NECK: Supple, full range of motion EXTREMITIES: Normal range of motion, patient does have increased pain with movement of her toes. She has some tenderness over the 4th metatarsal and very mildly over the 5th. She has some swelling over the 4th metatarsal region about mid foot on the dorsum of the foot. There is a small superficial laceration 0.75cm, over the dorsum of the foot. Patient has normal sensation throughout the rest the foot. No bony tenderness of the toes ankle or right lower extremity. She has some mild erythema and swelling over the site of laceration. No clubbing or generalized edema. Neurovascularly intact, cap refills less than 2 seconds. Patient able to ambulated with mild discomfort. NEUROLOGICAL: Cranial nerves II through XII grossly intact. Moving all extremities SKIN: Warm, dry, no petechiae, no rashes or lesions. Initial Vital Signs Initial Vital Signs: Vital Signs Temperature 97.9 F 07/07/19 19:35 Pulse Rate 89 07/07/19 19:35 Respiratory Rate 16 07/07/19 19:35 Blood Pressure 144/77 H 07/07/19 19:35 Pulse Oximetry 99 07/07/19 19:35 Course Orders Ordered: ED Orders 07/07/19 19:36 XR foot RT min 3V Stat Vital Signs Vital signs: Vital Signs - 8 hr 07/07/19 19:35 Temperature 97.9 F Pulse Rate 89 Respiratory Rate 16 Blood Pressure 144/77 H Pulse Oximetry 99 MDM - Extremity (Nontraumatic) Imaging Data right foot xray: Radiologist's Impression: [address] [address] XRay Report Signed Patient: Yesy Cunningham DMR#: [id number] : 1980Acct:[id number] Age/Sex: 39 / FDate of Service: 07/07/19 Loc: ED Accession Number: [id number] Procedure: XR foot RT min 3V Ordering Provider: Mindi Amador D.O. PROCEDURE: XR FOOT RT MIN 3V INDICATIONS: dorsal foot pain, dropped can on foot TECHNIQUE: 3 views of the foot were acquired. COMPARISON: None. FINDINGS: Bones: No definite fractures or dislocations. No suspicious bony lesions. Soft tissues: No tibiotalar joint effusion. Achilles tendon appears normal. IMPRESSION: 1. No fracture or dislocation. Dictated by: Porter Greco M.D. on 07/07/2019 at 19:52 Approved by: Porter Greco M.D. on 07/07/2019 at 19:56 MDM Narrative Medical decision making narrative: Patient's x-ray is negative. She has a small superficial laceration. Her tetanus is up-to-date. Symptomatic management. Did discuss that she needs return in 7-10 days if she is not having improvement in her symptoms for repeat imaging as there is potential for occult fracture. Patient was able to ambulate on her foot here but I did discuss trying a hard-soled shoe as this may be more comfortable. Discharge Plan Departure Patient Disposition: Home Clinical Impression: Laceration of foot, right Qualifiers: Encounter type: initial encounter Qualified Code(s): S91.311A - Laceration without foreign body, right foot, initial encounter Contusion of foot Qualifiers: Encounter type: initial encounter Laterality: right Qualified Code(s): S90.31XA - Contusion of right foot, initial encounter Instructions: DI for Contusion Activity Restrictions/Additional Instructions: Follow-up in 7-10 days if your symptoms are not improving for repeat imaging, rarely there can be small fractures that are not noted until there is healing the 7-10 day range. If your symptoms have resolved do not a follow-up. Weight bear as tolerated. Wear a hard-soled shoe. You may use ibuprofen and/or Tylenol as needed for pain. Elevate the foot when her not walking. Rest when you are able. You may elevate and ice regularly. Wound Care: Keep wound(s) clean and dry. Wash daily with soap and water only. Do not use over the counter products (alcohol or peroxide)on the wounds unless instructed by a physician, you may use a triple antibiotic ointment twice daily to the affected area. If wound condition worsens (increased/expanding redness, developing fluid blisters, or worsening pain), either contact your doctor for an urgent re-assessment , or return to the Emergency Department. Return to the Emergency Department for any new or worsening symptoms. Return if fever greater than 100.4 Fahrenheit, increased swelling, increasing pain or worsening symptoms such as increased discharge or spreading redness. Prescriptions: No Action albuterol sulfate [Ventolin HFA] 90 mcg/actuation HFA aerosol inhaler 2 puff INHALATION QIDP PRN (Reason: shortness of breath or wheezing) Qty: 2 RF: 11 lorazepam 0.5 mg tablet 0.5 mg PO Q8HP PRN (Reason: anxiety) Qty: 20 RF: 0 thyroid (pork) [DRUM SEALER Thyroid] 120 mg tablet 120 mg PO DAILY Qty: 90 RF: 1 thyroid (pork) [DRUM SEALER Thyroid] 30 mg tablet 30 mg PO DAILY Qty: 90 RF: 1 thyroid (pork) 15 mg tablet 15 mg PO DAILY Qty: 90 RF: 1 ondansetron 4 mg tablet,disintegrating 4 mg PO TID-QID PRN (Reason: nausea and vomiting) Qty: 10 RF: 0 Referrals: Kimberly Burns DO [Primary Care Provider] -
[2019-07-07 19:35] VITALS: BP 144/77; PULSE 89; RESP 16; TEMP 36.6; O2SAT 99
--- NOTE | 2019-07-07 19:36 | DI.RAD.S_ITS ---
PROCEDURE: XR FOOT RT MIN 3V INDICATIONS: dorsal foot pain, dropped can on foot TECHNIQUE: 3 views of the foot were acquired. COMPARISON: None. FINDINGS: Bones: No definite fractures or dislocations. No suspicious bony lesions. Soft tissues: No tibiotalar joint effusion. Achilles tendon appears normal. IMPRESSION: 1. No fracture or dislocation. Dictated by: Porter Greco M.D. on 07/07/2019 at 19:52 Approved by: Porter Greco M.D. on 07/07/2019 at 19:56
--- NOTE | 2019-07-07 20:14 | PC.NURSE ---
PT states R foot pain post dropping can on foot from cupboard above, pt has small lac to top of foot, able to partially bear weight and upto date on tetanus.
== END 2019-07-07 20:12 | disposition home or self-care (01) ==
PROVIDERS: Emergency Provider Emergency Medicine; PCP Family Medicine
DX: S91.311A Laceration without foreign body, right foot, initial encounter (principal); S90.31XA Contusion of right foot, initial encounter; W22.8XXA Striking against or struck by other objects, initial encounter
CPT/HCPCS: 73630; 99281; 99283

== ENCOUNTER → 2019-07-14 20:00 | Outpatient (ROUT) | payer OTHER, MEDICAID, SELFPAY ==
[2019-07-17 04:07] LABS: COVID19 Sendout Not Detected (Not Detected)
== END ==
PROVIDERS: PCP Family Medicine; Visit Provider Physician Assistant
DX: R05 Cough (principal)
CPT/HCPCS: 87635

== ENCOUNTER → 2019-07-28 12:33 | Outpatient (CLI) | payer OTHER, MEDICAID, SELFPAY | PROVIDERS: PCP Family Medicine; Visit Provider Physician Assistant | DX: R30.0 Dysuria (principal) | CPT/HCPCS: 87086 ==

== ENCOUNTER 2019-10-29 06:21 | Emergency (ER) | payer OTHER, MEDICAID, SELFPAY ==
[2019-10-29 06:32] VITALS: BP 136/87; PULSE 80; RESP 14; TEMP 36.9; O2SAT 97; BMI 28.3
[2019-10-29 06:49] LABS: Appearance Urine UA Slightly Cloudy; pH Urine UA 5 (4.5-8.0)
[2019-10-29 06:50] LABS: Bilirubin Urine UA Negative (NEGATIVE); Glucose Urine UA NEGATIVE (Negative); Occult Blood Urine UA 3+ (Negative); Protein Urine UA Negative (Negative)
[2019-10-29 06:56] LABS: Leukocyte Esterase Urine UA 3+ (NEGATIVE); RBC Urine 10-30/HPF (0-5/HPF); Squamous Epithelial Cell Urine 1-5 /HPF (0-5/HPF); WBC Urine 30-100/HPF (0-5/HPF)
[2019-10-29 06:57] LABS: Bacteria Urine Few (2-10)
[2019-10-29 06:58] LABS: Culture Indicated Urine Specimen Cultured
--- NOTE | 2019-10-29 07:24 | ED_ITS ---
HPI - Female Genitourinary General Chief complaint: Urogenital-Female Stated complaint: bladder infection Time Seen by Provider: 10/29/19 07:00 Source: patient Mode of arrival: Ambulatory Limitations: no limitations History of Present Illness HPI Narrative: 39-year-old female nonsmoker with history of presents with a chief complaint urinary frequency urgency and dysuria 0 over the past day or so. She denies any fever chills nor or vomiting. She does have some mild low back discomfort. She denies runny nose, sore throat, chest. She has multiple urinary tract infections states this feels the same. She denies any vaginal bleeding or discharge MD Complaint: dysuria and UTI Onset (ago): hour(s) Location: labia and suprapubic Severity: mild Quality: Aching Duration: constant Relieving factors: none Exacerbating factors: urination Urinary symptoms: Difficulty Urinating and Dysuria Patient : No Associated symptoms: denies other symptoms Related Data Previous Rx's Medication Instructions Recorded thyroid (pork) 120 mg tablet 120 mg PO DAILY #90 tab 05/27/19 thyroid (pork) 15 mg tablet 15 mg PO DAILY #90 tab 05/27/19 thyroid (pork) 30 mg tablet 30 mg PO DAILY #90 tab 05/27/19 albuterol sulfate 2.5 mg INHALATION Q6-8H PRN #15 ml 07/14/19 nebulizer #1 ea 07/15/19 albuterol sulfate 90 mcg/actuation 2 puff INHALATION QIDP PRN #2 each 07/29/19 aerosol inhaler ciprofloxacin HCl 500 mg PO Q12H #10 tab 10/29/19 ketorolac 10 mg PO TID PRN #10 tab 10/29/19 Allergies Allergy/AdvReac Type Severity Reaction Status Date / Time amoxicillin [AMOXICILLIN] Allergy Mild HIVES Verified 07/28/19 12:27 Penicillins [PENICILLINS] Allergy Unknown Verified 07/28/19 12:27 morphine [MORPHINE] AdvReac Mild HALLUCINATI Verified 07/28/19 12:27 ONS oxycodone [OXYCODONE] AdvReac Mild VOMITING Verified 07/28/19 12:27 Review of Systems Constitutional Constitutional: Denies chills, Denies fatigue, Denies fever(s), Denies frequent falls, Denies lethargy and Denies weakness Eyes Eyes: Denies change in vision, Denies eye discharge, Denies irritation and Denies loss of vision ENT Ears, Nose, Mouth, and Throat: Denies change in voice, Denies dizziness, Denies neck pain, Denies sore throat and Denies throat swelling Cardiovascular Cardiovascular: Denies chest pain, Denies irregular heart rhythm, Denies lightheadedness, Denies palpitations, Denies dyspnea, Denies dyspnea on exertion and Denies orthopnea Respiratory Respiratory: Denies cough, Denies dyspnea, Denies dyspnea on exertion and Denies wheezing Gastrointestinal Gastrointestinal: Denies abdominal pain, Denies change in bowel habits, Denies diarrhea, Denies nausea and Denies vomiting Genitourinary Genitourinary: Reports dysuria Genitourinary: Reports dysuria Musculoskeletal Musculoskeletal: Denies neck pain and Denies numbness Integumentary/Breasts Skin/Breast: Denies pruritus, Denies erythema, Denies rash and Denies wounds Neurologic Neurologic: Denies behavioral changes, Denies confusion, Denies dizziness, Denies frequent falls, Denies loss of vision, Denies numbness and Denies weakness Psychiatric Psychiatric: Denies anxiety, Denies behavioral changes, Denies confusion, Denies depression, Denies homicidal ideation and Denies suicidal ideation Endocrine Endocrine: Denies fatigue, Denies flushing and Denies palpitations Hematologic/Lymphatic Hematologic/Lymphatic: Denies easy bruising Allergic/Immunologic Allergic/Immunologic: Denies urticaria, Denies throat swelling and Denies w heezing Patient History Medical History Allergic rhinitis (Chronic 2008) Anemia (Resolved 2004) Anorexia nervosa (Resolved 1999) Anxiety (Chronic Unknown) Asthma (Chronic 2004) Asthma exacerbation (Acute) Carpal tunnel syndrome (Chronic 2013) Chicken pox (Resolved 1986) Chickenpox (Resolved 1986) Chronic back pain (Chronic 2015) Cyst of ovary (Chronic) Depression (Chronic Unknown) Hypothyroidism (Chronic 2008) Migraines (Chronic 2009) Ovarian cyst (Resolved 2001) Partial blindness (Chronic 1981) PTSD (post-traumatic stress disorder) (Chronic 2009) Shoulder pain (Resolved 2013) Thyroid cancer (Resolved 2009) Thyroid nodule (Resolved 2000) UTI (urinary tract infection) (Acute) Vertigo (Inactive 2008) Surgical History Anesthesia complication (Resolved) History of thyroidectomy (Resolved 2009) Hx of eye surgery (Resolved 1984) Hx of removal of cyst (Resolved 2013) Hx of tonsillectomy (Resolved 2001) Status post delivery (Resolved 2007) Family History Father Dementia Mental health problem Addiction Mother Diabetes mellitus Heart attack Hypertension Uterine cancer Heart disease Grandfather Cancer Heart disease Hypertension Hyperlipidemia Stroke Pancreatic cancer Lung cancer Grandmother Diabetes mellitus Hypertension Mental health problem Blood infection Grandfather Heart disease Stroke Grandmother Diabetes mellitus alcohol intake frequency: 0-2 drinks per day Substance Use Type: does not use Exam Narrative Exam Narrative: GEN: AOx3 and in mild distress EYES: Pupils are equal, round, and reactive to light and accommodation. Extraoccular muscles are intact bilaterally. There is no subconjunctival hemorrhage or exudate. CHEST: Lungs are clear to auscultation bilaterally and free of wheezes, rales, or rhonchi. Heart rate is regular rhythm, there are no murmurs, clicks, rubs, or gallops. There is no chest wall tenderness. ABD: Abdomen is soft and mildly tender in the suprapubic region There is no guarding or rebound. Bowel sounds are normal in all 4 quadrants. There is no mass or organomegaly. EXT: Full painless ROM of all extremities with no loss of sensation or strength. SKIN: Warm, pink, and dry. No erythema or rash Initial Vital Signs Initial Vital Signs: Vital Signs Temperature 98.4 F 10/29/19 06:32 Pulse Rate 80 10/29/19 06:32 Respiratory Rate 14 10/29/19 06:32 Blood Pressure 136/87 10/29/19 06:32 Pulse Oximetry 97 10/29/19 06:32 Course Orders Ordered: ED Orders 10/29/19 06:25 UA Complete [Urinalysis and Microscopic] Stat Urine Culture Stat Vital Signs Vital signs: Vital Signs - 8 hr 10/29/19 06:32 Temperature 98.4 F Pulse Rate 80 Respiratory Rate 14 Blood Pressure 136/87 Pulse Oximetry 97 MDM - Female Genitourinary Lab Data Labs: Lab Results 10/29/19 Range/Units 06:25 Urine Color Pyridium orange Urine Appearance Slightly cloudy Urine pH 5 (4.5-8.0) Ur Specific [place] 1.030 (1.000-1.035) Urine Protein Negative (Negative) Urine Glucose (UA) Negative (Negative) g/dL Urine Ketones Not Reportable Urine Occult Blood 3+ H (Negative) Urine Nitrate Not Reportable Urine Bilirubin Negative (NEGATIVE) Urine Urobilinogen Not Reportable Ur Leukocyte Esterase 3+ H (NEGATIVE) Urine RBC 10-30/hpf H (0-5/HPF) Urine WBC 30-100/hpf H (0-5/HPF) Ur Squamous Epith Cells 1-5 /hpf (0-5/HPF) Urine Bacteria Few (2-10) H (None) Ur Culture Indicated? Specimen cultured Micro UA Comment * Discharge Plan Departure Patient Disposition: Home Clinical Impression: UTI (urinary tract infection) Qualifiers: Urinary tract infection type: acute cystitis Hematuria presence: with hematuria Qualified Code(s): N30.01 - Acute cystitis with hematuria Discharge Date/Time: 10/29/19 08:14 Instructions: DI for Urinary Tract Infection (UTI) Activity Restrictions/Additional Instructions: *You have been diagnosed with [acute urinary tract infection, possible early pyelonephritis] *What to do: *Take medications as directed *Follow up with your primary care provider in 2-3 days, call for an appointment. Let them know you were seen in the Emergency Department and that we ask that you be seen in follow up *Return to ER if you should have any new, worsening or concerning symptoms Prescriptions: New ciprofloxacin HCl 500 mg tablet 500 mg PO Q12H Qty: 10 RF: 0 ketorolac 10 mg tablet 10 mg PO TID PRN (Reason: pain) Qty: 10 RF: 0 No Action albuterol sulfate 2.5 mg /3 mL (0.083 %) solution for nebulization 2.5 mg INHALATION Q6-8H PRN (Reason: shortness of breath or wheezing) Qty: 15 RF: 0 thyroid (pork) [MINIATURE MODEL MAKER Thyroid] 120 mg tablet 120 mg PO DAILY Qty: 90 RF: 1 thyroid (pork) [MINIATURE MODEL MAKER Thyroid] 30 mg tablet 30 mg PO DAILY Qty: 90 RF: 1 thyroid (pork) 15 mg tablet 15 mg PO DAILY Qty: 90 RF: 1 (DME) nebulizer Qty: 1 RF: 0 albuterol sulfate [Ventolin HFA] 90 mcg/actuation HFA aerosol inhaler 2 puff INHALATION QIDP PRN (Reason: shortness of breath or wheezing) Qty: 2 RF: 11 Referrals: Carol Ann Savage ARNP [Primary Care Provider] - Tyron Pratt MD [Physician] -
[2019-10-29 08:06] VITALS: BP 110/62; PULSE 86; O2SAT 97
== END 2019-10-29 08:14 | disposition home or self-care (01) ==
PROVIDERS: Emergency Medicine; Emergency Provider Emergency Medicine; PCP Nurse Practitioner
DX: N30.01 Acute cystitis with hematuria (principal)
CPT/HCPCS: 81001; 87077; 87086; 87186; 99282

== ENCOUNTER → 2019-12-18 11:23 | Outpatient (CLI) | payer OTHER, MEDICAID, SELFPAY ==
[2019-12-18 11:59] LABS: Add Manual Diff / Slide Review NO; Basophils Absolute Auto 0 /uL (0-100); Basophils Percent Auto 0.2 % (0-2); Eosinophils Absolute Auto 200 /uL (0-450); Eosinophils Percent Auto 2.4 % (2-4); Hematocrit 39.4 % (36-46); Hemoglobin 13.2 g/dL (12.0-16.0); Lymphocytes Absolute Auto 1600 /uL (1100-4500); Lymphocytes Percent Auto 19.8 % (25-40); Mean Corpuscular HGB Conc 33.5 % (30-36); Mean Corpuscular Hemoglobin 29.6 PG (26-34); Mean Corpuscular Volume 88.3 fL (80-100); Monocytes Absolute Auto 500 /uL (0-900); Monocytes Percent Auto 6.5 % (3-14); Neutrophils Absolute Auto 5600 /uL (1500-7000); Neutrophils Percent Auto 71.1 % (50-75); Platelet Count 362 X10^3/uL (150-400); Red Blood Cell Count 4.46 X10^6/uL (4.0-5.2); Red Cell Distribution Width 13.2 % (11.6-14.8); White Blood Cell Count 7.8 X10^3/uL (4.5-11.0)
[2019-12-18 12:31] LABS: Alanine Aminotransferase 23 IU/L (<35); Albumin 4.2 g/dL (3.5-5.0); Albumin Globulin Ratio 1.4 (1.0-2.8); Alkaline Phosphatase 86 U/L (38-126); Aspartate Aminotransferase 26 IU/L (14-36); BUN Creatinine Ratio 18.5 (6-22); Bilirubin Total 0.5 mg/dL (0.2-1.3); Blood Urea Nitrogen 12 mg/dL (7-17); Calcium 9.7 mg/dL (8.4-10.2); Carbon Dioxide 30 mmol/L (22-32); Chloride 103 mmol/L (98-107); Cholesterol 189 mg/dL (140-199); Estimated Glomerular Filt Rate > 60.0 mL/min (>60); Globulin 3.1 g/dL (1.7-4.1); Glucose 89 mg/dL (70-100); HDL Cholesterol 44 mg/dL (40-60); HEMOLYSIS < 15 (0-50); LDL Cholesterol Calculated 110 mg/dL (<100); Potassium 4.7 mmol/L (3.4-5.1); Sodium 138 mmol/L (137-145); Total Protein 7.3 g/dL (6.3-8.2); Triglycerides 173 mg/dL (35-150)
[2019-12-18 13:01] LABS: Thyroid Stimulating Hormone 0.132 uIU/mL (0.47-4.68)
== END ==
PROVIDERS: PCP Nurse Practitioner; Referring Provider Nurse Practitioner; Visit Provider Nurse Practitioner
DX: E03.9 Hypothyroidism, unspecified (principal); F41.9 Anxiety disorder, unspecified; R00.2 Palpitations; Z00.00 Encounter for general adult medical examination without abnormal findings; Z85.850 Personal history of malignant neoplasm of thyroid
CPT/HCPCS: 36415; 80053; 80061; 84443; 85025

== ENCOUNTER → 2019-12-27 13:34 | Outpatient (CLI) | payer OTHER, MEDICAID, SELFPAY ==
[2020-01-06 08:28] LABS: COVID19 Sendout Not Detected
== END ==
PROVIDERS: PCP Nurse Practitioner; Visit Provider Physician Assistant
DX: R05 Cough (principal); R06.02 Shortness of breath; R09.81 Nasal congestion; R50.9 Fever, unspecified; R53.83 Other fatigue
CPT/HCPCS: 87635

== ENCOUNTER 2020-02-15 16:16 | Emergency (ER) | payer OTHER, MEDICAID, SELFPAY ==
[2020-02-15 16:17] VITALS: BP 134/76; PULSE 60; RESP 14; TEMP 36.8; O2SAT 97; BMI 28.3
--- NOTE | 2020-02-15 16:28 | ED_ITS ---
HPI - Chest Pain General Chief Complaint: Chest Pain Stated Complaint: Electricution Time Seen by Provider: 02/15/20 16:17 Source: patient Mode of arrival: Ambulatory Limitations: no limitations History of Present Illness HPI narrative: 39-year-old female nonsmoker with complex medical history presents with a chief complaint of anterior chest pressure and palpitations for the past 24 hours. She states the symptoms happen rather frequently with her but because of an accidental electrocution suffered yesterday she wanted to be checked out. She states that she had a problem with water leaking from her sink and when she went to flip on the disposal unit she felt a quick shock. She denies any loss of consciousness nor nausea or vomiting. It is unclear exactly when her symptoms started but she thinks sometime yesterday afternoon. She denies any dietary change. She states her chest pain is worse with a deep breath and palpation. MD complaint: chest pain Onset (ago): day(s) Duration: constant Pain location: substernal Severity: moderate Quality: tightness and aching Pain radiation: none Relieving factors: nothing Exacerbating factors: inspiration and palpation Associated symptoms: palpitations Treatments prior to arrival chest pain: none Related Data On Oral Contraceptives: No Previous Rx's Medication Instructions Recorded albuterol sulfate 2.5 mg INHALATION Q6-8H PRN #15 ml 07/14/19 nebulizer #1 ea 07/15/19 albuterol sulfate 90 mcg/actuation 2 puff INHALATION QIDP PRN #2 each 07/29/19 aerosol inhaler epinephrine 0.3 mg/0.3 mL 0.3 mg IM Q5-15M PRN #2 each 12/15/19 injection, auto-injector thyroid (pork) 15 mg tablet 15 mg PO DAILY #90 tab 12/29/19 thyroid (pork) 120 mg tablet 120 mg PO DAILY #90 tab 02/02/20 thyroid (pork) 30 mg tablet 30 mg PO DAILY #90 tab 02/02/20 Allergies Allergy/AdvReac Type Severity Reaction Status Date / Time amoxicillin [AMOXICILLIN] Allergy Mild HIVES Verified 12/27/19 13:33 Penicillins [PENICILLINS] Allergy Unknown Verified 12/27/19 13:33 morphine [MORPHINE] AdvReac Mild HALLUCINATI Verified 12/27/19 13:33 ONS oxycodone [OXYCODONE] AdvReac Mild VOMITING Verified 12/27/19 13:33 Review of Systems Constitutional Constitutional: Denies chills, Denies fatigue, Denies fever(s), Denies frequent falls, Denies lethargy and Denies weakness Eyes Eyes: Denies change in vision, Denies eye discharge, Denies irritation and Denies loss of vision ENT Ears, Nose, Mouth, and Throat: Denies change in voice, Denies dizziness, Denies neck pain, Denies sore throat and Denies throat swelling Cardiovascular Cardiovascular: Reports chest pain, Denies irregular heart rhythm, Denies lightheadedness, Denies palpitations, Denies dyspnea, Denies dyspnea on exertion and Denies orthopnea Respiratory Respiratory: Denies cough, Denies dyspnea, Denies dyspnea on exertion and Denies wheezing Gastrointestinal Gastrointestinal: Denies abdominal pain, Denies change in bowel habits, Denies diarrhea, Denies nausea and Denies vomiting Musculoskeletal Musculoskeletal: Denies neck pain and Denies numbness Integumentary/Breasts Skin/Breast: Denies pruritus, Denies erythema, Denies rash and Denies wounds Neurologic Neurologic: Denies behavioral changes, Denies confusion, Denies dizziness, Denies frequent falls, Denies loss of vision, Denies numbness and Denies weakness Psychiatric Psychiatric: Denies anxiety, Denies behavioral changes, Denies confusion, Denies depression, Denies homicidal ideation and Denies suicidal ideation Endocrine Endocrine: Denies fatigue, Denies flushing and Denies palpitations Hematologic/Lymphatic Hematologic/Lymphatic: Denies easy bruising Allergic/Immunologic Allergic/Immunologic: Denies urticaria, Denies throat swelling and Denies wheezing Patient History Medical History (Updated 02/15/20 @ 17:20 by Ramo Kendrick DO) Acquired hypothyroidism (Acute) Allergic rhinitis (Chronic 2008) Anaphylaxis (Acute) Anemia (Resolved 2004) Anorexia nervosa (Resolved 1999) Anxiety (Chronic Unknown) Asthma (Chronic 2004) Asthma exacerbation (Acute) Carpal tunnel syndrome (Chronic 2013) Chicken pox (Resolved 1986) Chickenpox (Resolved 1986) Chronic back pain (Chronic 2014) Cyst of ovary (Chronic) Depression (Chronic Unknown) Hypothyroidism (Chronic 2008) Migraines (Chronic 2009) Ovarian cyst (Resolved 2001) Partial blindness (Chronic 1981) Preventative health care (Acute) PTSD (post-traumatic stress disorder) (Chronic 2009) Shoulder pain (Resolved 2013) Thyroid cancer (Resolved 2009) Thyroid nodule (Resolved 2000) UTI (urinary tract infection) (Acute) Vertigo (Inactive 2008) Surgical History Anesthesia complication (Resolved) History of thyroidectomy (Resolved 2009) Hx of eye surgery (Resolved 1984) Hx of removal of cyst (Resolved 2013) Hx of tonsillectomy (Resolved 2001) Status post delivery (Resolved 2007) Family History Father Dementia Mental health problem Addiction Mother Diabetes mellitus Heart attack Hypertension Uterine cancer Heart disease Grandfather Cancer Heart disease Hypertension Hyperlipidemia Stroke Pancreatic cancer Lung cancer Grandmother Diabetes mellitus Hypertension Mental health problem Blood infection Grandfather Heart disease Stroke Grandmother Diabetes mellitus Social History Smoking Status: Never smoker alcohol intake: current substance use type: does not use Smoking Status: Never smoker alcohol intake frequency: 0-2 drinks per day Substance Use Type: does not use Exam Narrative Exam Narrative: GENERAL: [39] year old patient appears stated age. Well-nadya shed, well-developed patient, in mild distress. HEAD: Atraumatic. Normocephalic. EYES: Pupils equal round and reactive. Extraocular motions intact. No scleral icterus. No injection or drainage. ENT: Nose without bleeding, purulent drainage. Throat without erythema, tonsillar hypertrophy or exudate. Airway patent. NECK: Trachea midline. Non tender CARDIOVASCULAR: Regular rate and rhythm without murmurs, gallops, or rubs. Mild reproducible anterior chest pain to palpation RESPIRATORY: Clear to auscultation. Breath sounds equal bilaterally. No wheezes, rales, or rhonchi. GASTROINTESTINAL: Abdomen soft, non-tender, nondistended. EXTREMITIES: No edema or joint tenderness. BACK: Nontender without deformity or crepitance. No flank tenderness. NEURO: AOx3. SKIN: No rash or erythema of visible areas Initial Vital Signs Initial Vital Signs: Vital Signs Temperature 98.2 F 02/15/20 16:17 Pulse Rate 60 02/15/20 16:17 Respiratory Rate 14 02/15/20 16:17 Blood Pressure 134/76 02/15/20 16:17 Pulse Oximetry 97 02/15/20 16:17 Course Orders Ordered: ED Orders 02/15/20 16:20 EKG-12 Lead Stat 02/15/20 16:26 Complete Blood Count AUTO DIFF Stat Comprehensive Metabolic Panel Stat Troponin & CK Cardiac Panel Stat Discontinued Medications Sodium Chloride (Normal Saline 0.9%) 1,000 mls @ 1,000 mls/hr IV BOLUS ONE Stop: 02/15/20 17:18 Last Admin: 02/15/20 16:39 Dose: 1,000 mls/hr Documented by: WAGNER Ketorolac Tromethamine (Toradol) 15 mg IV NOW ONE Stop: 02/15/20 16:20 Last Admin: 02/15/20 16:39 Dose: 15 mg Documented by: WAGNER Vital Signs Vital signs: Vital Signs - 8 hr 02/15/20 16:17 02/15/20 17:12 Temperature 98.2 F Pulse Rate 60 57 L Respiratory Rate 14 18 Blood Pressure 134/76 123/63 Pulse Oximetry 97 98 MDM - Chest Pain Lab Data Result diagrams: 02/15/20 16:26 02/15/20 16:26 Labs: Lab Results 02/15/20 02/15/20 Range/Units 16:26 16:26 WBC 9.0 (4.5-11.0) X10^3/uL RBC 4.38 (4.0-5.2) X10^6/uL Hgb 12.9 (12.0-16.0) g/dL Hct 38.8 (36-46) % MCV 88.5 (80-100) fL MCH 29.4 (26-34) PG MCHC 33.3 (30-36) % RDW 13.7 (11.6-14.8) % Plt Count 400 (150-400) X10^3/uL Neut % (Auto) 67.7 (50-75) % Lymph % (Auto) 21.3 L (25-40) % [place] % (Auto) 7.1 (3-14) % Eos % (Auto) 3.3 (2-4) % Baso % (Auto) 0.6 (0-2) % Neut # (Auto) 6100 (0227-4803) /uL Lymph # (Auto) 1900 (8580-2173) /uL [place] # (Auto) 600 (0-900) /uL Eos # (Auto) 300 (0-450) /uL Baso # (Auto) 100 (0-100) /uL Sodium 139 (137-145) mmol/L Potassium 3.6 (3.4-5.1) mmol/L Chloride 105 (98-107) mmol/L Carbon Dioxide 29 (22-32) mmol/L BUN 12 (7-17) mg/dL Creatinine 0.62 (0.52-1.04) mg/dL Estimated GFR > 60.0 (>60) mL/min BUN/Creatinine Ratio 19.4 (6-22) Glucose 97 (70-100) mg/dL Calcium 9.2 (8.4-10.2) mg/dL Total Bilirubin 0.4 (0.2-1.3) mg/dL AST 42 H (14-36) IU/L ALT 28 (<35) IU/L Alkaline Phosphatase 98 (38-126) U/L Total Creatine Kinase 85 (30-135) U/L CK-MB (CK-2) TNP CK-MB (CK-2) Rel Index TNP Troponin I < 0.012 (0.01-0.034) ng/mL Total Protein 7.6 (6.3-8.2) g/dL Albumin 4.2 (3.5-5.0) g/dL Globulin 3.4 (1.7-4.1) g/dL Albumin/Globulin Ratio 1.2 (1.0-2.8) Discharge Plan Departure Patient Disposition: Home Clinical Impression: Heart palpitations, Electrocution Instructions: DI for Palpitations Activity Restrictions/Additional Instructions: *You have been diagnosed with [atypical chest pain, palpitations, unlikely to be related to your electrocution yesterday.] *What to do: *Take medications as directed *Follow up with your primary care provider in 2-3 days, call for an appointment. Let them know you were seen in the Emergency Department and that we ask that you be seen in follow up *Return to ER if you should have any new, worsening or concerning symptoms Prescriptions: No Action albuterol sulfate 2.5 mg /3 mL (0.083 %) solution for nebulization 2.5 mg INHALATION Q6-8H PRN (Reason: shortness of breath or wheezing) Qty: 15 RF: 0 (DME) nebulizer Qty: 1 RF: 0 albuterol sulfate [Ventolin HFA] 90 mcg/actuation HFA aerosol inhaler 2 puff INHALATION QIDP PRN (Reason: shortness of breath or wheezing) Qty: 2 RF: 11 thyroid (pork) 15 mg tablet 15 mg PO DAILY Qty: 90 RF: 1 thyroid (pork) [[facility] Thyroid] 120 mg tablet 120 mg PO DAILY Qty: 90 RF: 1 thyroid (pork) [[facility] [employer] Thyroid] 30 mg tablet 30 mg PO DAILY Qty: 90 RF: 1 epinephrine 0.3 mg/0.3 mL auto-injector 0.3 mg IM Q5-15M PRN (Reason: anaphylaxis) Qty: 2 RF: 2 Referrals: Carol Ann Savage ARNP [Primary Care Provider] -
[2020-02-15 16:34] LABS: Add Manual Diff / Slide Review NO; Basophils Absolute Auto 100 /uL (0-100); Basophils Percent Auto 0.6 % (0-2); Eosinophils Absolute Auto 300 /uL (0-450); Eosinophils Percent Auto 3.3 % (2-4); Hematocrit 38.8 % (36-46); Hemoglobin 12.9 g/dL (12.0-16.0); Lymphocytes Absolute Auto 1900 /uL (1100-4500); Lymphocytes Percent Auto 21.3 % (25-40); Mean Corpuscular HGB Conc 33.3 % (30-36); Mean Corpuscular Hemoglobin 29.4 PG (26-34); Mean Corpuscular Volume 88.5 fL (80-100); Monocytes Absolute Auto 600 /uL (0-900); Monocytes Percent Auto 7.1 % (3-14); Neutrophils Absolute Auto 6100 /uL (1500-7000); Neutrophils Percent Auto 67.7 % (50-75); Platelet Count 400 X10^3/uL (150-400); Red Blood Cell Count 4.38 X10^6/uL (4.0-5.2); Red Cell Distribution Width 13.7 % (11.6-14.8)
[2020-02-15] MEDS: KETOROLAC 60 MG/2 ML VIAL 15 MG IV (16:39)
[2020-02-15] MEDS: SODIUM CHLORIDE 0.9% 1,000 ML 1000 ML IV (16:39)
[2020-02-15 16:53] LABS: Alanine Aminotransferase 28 IU/L (<35); Albumin 4.2 g/dL (3.5-5.0); Albumin Globulin Ratio 1.2 (1.0-2.8); Alkaline Phosphatase 98 U/L (38-126); Aspartate Aminotransferase 42 IU/L (14-36); BUN Creatinine Ratio 19.4 (6-22); Bilirubin Total 0.4 mg/dL (0.2-1.3); Blood Urea Nitrogen 12 mg/dL (7-17); Calcium 9.2 mg/dL (8.4-10.2); Carbon Dioxide 29 mmol/L (22-32); Chloride 105 mmol/L (98-107); Creatine Kinase 85 U/L (30-135); Estimated Glomerular Filt Rate > 60.0 mL/min (>60); Globulin 3.4 g/dL (1.7-4.1); Glucose 97 mg/dL (70-100); HEMOLYSIS < 15 (0-50); Potassium 3.6 mmol/L (3.4-5.1); Sodium 139 mmol/L (137-145); Total Protein 7.6 g/dL (6.3-8.2)
[2020-02-15 17:06] LABS: Troponin I < 0.012 ng/mL (0.01-0.034)
[2020-02-15 17:12] VITALS: BP 123/63; PULSE 57; RESP 18; O2SAT 98
== END 2020-02-15 17:28 | disposition home or self-care (01) ==
PROVIDERS: Emergency Provider Emergency Medicine; PCP Nurse Practitioner
DX: R00.2 Palpitations (principal); R07.89 Other chest pain; T75.4XXA Electrocution, initial encounter
CPT/HCPCS: 36415; 80053; 82550; 84484; 85025; 93005; 93010; 96361; 96374; 99284; J1885

== ENCOUNTER → 2020-08-19 13:07 | Outpatient (CLI) | payer OTHER, MEDICAID, SELFPAY ==
[2020-08-19 15:29] LABS: TSH w/ Reflex to FT4 0.35 uIU/mL (0.47-4.68)
[2020-08-19 16:38] LABS: Free T4, Direct Thyroxine 1.02 ng/dL (0.78-2.19)
== END ==
PROVIDERS: PCP Registered Nurse Diabetes Educator; Referring Provider Registered Nurse Diabetes Educator; Visit Provider Registered Nurse Diabetes Educator
DX: E89.0 Postprocedural hypothyroidism (principal); Z85.850 Personal history of malignant neoplasm of thyroid
CPT/HCPCS: 36415; 84439; 84443

== ENCOUNTER 2020-08-30 11:46 | Observation (INO) | payer OTHER, MEDICAID, SELFPAY ==
[2020-08-30] VITALS (28 sets, daily range): BP systolic 90–143; BP diastolic 50–82; PULSE 46–81; RESP 13–35; TEMP 36.4–36.9; O2SAT 97–100; BMI 31.8
--- NOTE | 2020-08-30 11:55 | DI.RAD.S_ITS ---
PROCEDURE: XR CHEST 1V INDICATIONS: chest pain TECHNIQUE: One view of the chest was acquired. COMPARISON: [facility], CR, XR CHEST 2V, 04/24/2019, 23:06. FINDINGS: Surgical changes and devices: None. Lungs and pleura: Lungs are clear. No pleural effusions or pneumothorax. Mediastinum: Mediastinal contours appear normal. Heart size is normal. Bones and chest wall: No suspicious bony lesions. Overlying soft tissues appear unremarkable. IMPRESSION: No acute cardiopulmonary pathology. Dictated by: Jake Vernon M.D. on 08/30/2020 at 12:41 Approved by: Jake Vernon M.D. on 08/30/2020 at 12:41
[2020-08-30 12:00] LABS: Add Manual Diff / Slide Review NO; Basophils Absolute Auto 100 /uL (0-100); Basophils Percent Auto 0.8 % (0-2); Eosinophils Absolute Auto 400 /uL (0-450); Hematocrit 41.2 % (36-46); Hemoglobin 13.8 g/dL (12.0-16.0); Lymphocytes Absolute Auto 2300 /uL (1100-4500); Lymphocytes Percent Auto 24.1 % (25-40); Mean Corpuscular HGB Conc 33.5 % (30-36); Mean Corpuscular Hemoglobin 29.5 PG (26-34); Mean Corpuscular Volume 88.1 fL (80-100); Monocytes Absolute Auto 600 /uL (0-900); Monocytes Percent Auto 5.9 % (3-14); Neutrophils Absolute Auto 6300 /uL (1500-7000); Neutrophils Percent Auto 65.2 % (50-75); Platelet Count 440 X10^3/uL (150-400); Red Blood Cell Count 4.68 X10^6/uL (4.0-5.2); Red Cell Distribution Width 13.4 % (11.6-14.8); White Blood Cell Count 9.6 X10^3/uL (4.5-11.0)
[2020-08-30] MEDS: SODIUM CHLORIDE 0.9% 1,000 ML 150 ML IV (12:07)
[2020-08-30] MEDS: ASPIRIN 81 MG CHEW TAB 324 MG PO (12:07)
[2020-08-30] MEDS: NITROGLYCERIN 0.4 MG SL TAB SL (12:08)
[2020-08-30 12:10] LABS: Prothrombin Time 10.8 SECONDS (10.1-12.7)
[2020-08-30 12:12] LABS: PTT Partial Thromboplastin Tim 33 SECONDS (26.4-36.2)
[2020-08-30 12:15] LABS: Alanine Aminotransferase 19 IU/L (<35); Albumin 4.3 g/dL (3.5-5.0); Albumin Globulin Ratio 1.2 (1.0-2.8); Alkaline Phosphatase 102 U/L (38-126); Aspartate Aminotransferase 23 IU/L (14-36); BUN Creatinine Ratio 14.3 (6-22); Bilirubin Total 0.3 mg/dL (0.2-1.3); Blood Urea Nitrogen 10 mg/dL (7-17); Calcium 9.2 mg/dL (8.4-10.2); Carbon Dioxide 25 mmol/L (22-32); Chloride 104 mmol/L (98-107); Creatine Kinase 67 U/L (30-135); Estimated Glomerular Filt Rate > 60.0 mL/min (>60); Globulin 3.6 g/dL (1.7-4.1); Glucose 92 mg/dL (70-100); HEMOLYSIS < 15 (0-50); Lipase 27 U/L (23-300); Potassium 3.6 mmol/L (3.4-5.1); Sodium 138 mmol/L (137-145); Total Protein 7.9 g/dL (6.3-8.2)
--- NOTE | 2020-08-30 12:19 | ED.CHESTPAIN ---
HPI - Chest Pain General Chief Complaint: Chest Pain Stated Complaint: pretty intense arm pain and chest tightness Time Seen by Provider: 08/30/20 11:47 Source: patient Mode of arrival: Ambulatory Limitations: no limitations History of Present Illness HPI narrative: 40-year-old female nonsmoker with history of asthma presents with the chief complaint of left arm pain, heaviness and squeezing since about 546 this morning in the absence of any injury or overuse. She denies any obvious provocation or palliation. She states that she noticed her symptoms this morning, took some Motrin and went back to sleep. She woke up about an hour prior to her arrival and felt chest pressure and heaviness in the center of her chest that then radiated into her arm. She states that it is not obviously provoked or helped by a anything. She rates it as a 4/10, heavy and squeezing. She denies associated symptoms such as dizziness, weakness, lightheadedness. She denies any cough, shortness of breath or unexplained diaphoresis. She has a very strong family history of NC including her mother at age 40. She has never had any symptoms such as this. She denies any recent travel, blood clot MD complaint: chest pain Onset (ago): hour(s) Duration: constant Onset: during rest Pain location: substernal Severity: moderate Quality: tightness, aching and heaviness Pain radiation: LUE Relieving factors: nothing Exacerbating factors: nothing Treatments prior to arrival chest pain: none Related Data On Oral Contraceptives: No Previous Rx's Medication Instructions Recorded albuterol sulfate 2.5 mg INHALATION Q6-8H PRN #15 ml 07/14/19 nebulizer #1 ea 07/15/19 epinephrine 0.3 mg/0.3 mL 0.3 mg IM Q5-15M PRN #2 each 12/15/19 injection, auto-injector fluticasone propionate 110 2 puff INHALATION BID #12 g 07/21/20 mcg/actuation HFA aerosol inhaler lorazepam 0.5 mg tablet 0.5 mg PO Q8H PRN #15 tab 07/21/20 albuterol sulfate 90 mcg/actuation 2 puff INHALATION QIDP PRN #2 each 08/04/20 aerosol inhaler thyroid (pork) 120 mg tablet 120 mg PO DAILY #60 tab 08/22/20 thyroid (pork) 30 mg tablet 30 mg PO DAILY #60 tab 08/22/20 Allergies Allergy/AdvReac Type Severity Reaction Status Date / Time amoxicillin [AMOXICILLIN] Allergy Mild HIVES Verified 08/30/20 11:57 Penicillins [PENICILLINS] Allergy Unknown Verified 08/30/20 11:57 morphine [MORPHINE] AdvReac Mild HALLUCINATI Verified 08/30/20 11:57 ONS oxycodone [OXYCODONE] AdvReac Mild VOMITING Verified 08/30/20 11:57 Review of Systems Constitutional Constitutional: Denies chills, Denies fatigue, Denies fever(s), Denies frequent falls, Denies lethargy and Denies weakness Eyes Eyes: Denies change in vision, Denies eye discharge, Denies irritation and Denies loss of vision ENT Ears, Nose, Mouth, and Throat: Denies change in voice, Denies dizziness, Denies neck pain, Denies sore throat and Denies throat swelling Cardiovascular Cardiovascular: Reports chest pain, Denies irregular heart rhythm, Denies lightheadedness, Denies palpitations, Denies dyspnea, Denies dyspnea on exertion and Denies orthopnea Respiratory Respiratory: Denies cough, Denies dyspnea, Denies dyspnea on exertion and Denies wheezing Gastrointestinal Gastrointestinal: Denies abdominal pain, Denies change in bowel habits, Denies diarrhea, Denies nausea and Denies vomiting Musculoskeletal Musculoskeletal: Denies neck pain and Denies numbness Integumentary/Breasts Skin/Breast: Denies pruritus, Denies erythema, Denies rash and Denies wounds Neurologic Neurologic: Denies behavioral changes, Denies confusion, Denies dizziness, Denies frequent falls, Denies loss of vision, Denies numbness and Denies weakness Psychiatric Psychiatric: Denies anxiety, Denies behavioral changes, Denies confusion, Denies depression, Denies homicidal ideation and Denies suicidal ideation Endocrine Endocrine: Denies fatigue, Denies flushing and Denies palpitations Hematologic/Lymphatic Hematologic/Lymphatic: Denies easy bruising Allergic/Immunologic Allergic/Immunologic: Denies urticaria, Denies throat swelling and Denies wheezing Patient History Medical History Acquired hypothyroidism Allergic rhinitis (2008) Anaphylaxis Anemia (2004) Anorexia nervosa (1999) Anxiety (Unknown) Asthma (2004) Asthma exacerbation (~2003) Benign familial tremor (~2012) Blindness Carpal tunnel syndrome (2013) Chicken pox (1986) Chickenpox (1986) Chronic back pain (2014) Cyst of ovary Depression (Unknown) Fibroids (~2015) Headache (~2009) Hypothyroidism (2009) Migraines (2009) Mild persistent asthma Ovarian cyst (2001) Partial blindness (1981) Postprocedural hypothyroidism (~2009) Preventative health care PTSD (post-traumatic stress disorder) (2009) Shoulder pain (2013) Thyroid cancer (2009) Thyroid nodule (2000) UTI (urinary tract infection) Vertigo (2008) Surgical History Anesthesia complication History of thyroidectomy (2009) Hx of eye surgery (1984) Hx of removal of cyst (2013) Hx of tonsillectomy (2001) Status post delivery (2007) Family History Father Dementia Mental health problem Addiction Mother Diabetes mellitus Heart attack Hypertension Uterine cancer Heart disease Grandfather Cancer Heart disease Hypertension Hyperlipidemia Stroke Pancreatic cancer Lung cancer Grandmother Diabetes mellitus Hypertension Mental health problem Blood infection Heart disease Grandfather Heart disease Stroke Cancer Grandmother Diabetes mellitus Social History household members: significant other and children Smoking Status: Never smoker alcohol intake: current substance use type: does not use Smoking Status: Never smoker alcohol intake frequency: 0-2 drinks per day Substance Use Type: does not use Exam Narrative Exam Narrative: GENERAL: [40] year old patient appears stated age. Well-nourished, well-developed patient, in mild distress. HEAD: Atraumatic. Normocephalic. EYES: Pupils equal round and reactive. Extraocular motions intact. No scleral icterus. No injection or drainage. ENT: Nose without bleeding, purulent drainage. Throat without erythema, tonsillar hypertrophy or exudate. Airway patent. NECK: Trachea midline. Non tender CARDIOVASCULAR: Regular rate and rhythm without murmurs, gallops, or rubs. No pain on palpation of chest or arm RESPIRATORY: Clear to auscultation. Breath sounds equal bilaterally. No wheezes, rales, or rhonchi. GASTROINTESTINAL: Abdomen soft, non-tender, nondistended. EXTREMITIES: No edema or joint tenderness. BACK: Nontender without deformity or crepitance. No flank tenderness. NEURO: AOx3. SKIN: No rash or erythema of visible areas Initial Vital Signs Initial Vital Signs: Vital Signs Temperature 98.1 F 08/30/20 11:52 Pulse Rate 51 L 08/30/20 11:52 Respiratory Rate 20 08/30/20 11:52 Blood Pressure 136/77 08/30/20 11:52 Pulse Oximetry 100 08/30/20 11:52 Scores HEART Score Heart Score history: Highly Suspicious Heart Score EKG: Non-Specific repolarization disturbance Heart Score Age: < 45 years old Heart Score risk factors: 1-2 risk factors Heart Score troponin: < or = to normal limit Heart Score Total: 4 Course Orders Ordered: ED Orders 08/30/20 22:54 Troponin I Routine 08/31/20 Basic Metabolic Panel Routine Complete Blood Count AUTO DIFF Routine Acetaminophen (Acetaminophen 325 Mg Tablet) 650 mg PO Q6HR PRN PRN Reason: Fever/Mild Pain (1-3) Albuterol (Albuterol 2.5 Mg/3 Ml Neb (Adult)) 2.5 mg INH RTQID PRN PRN Reason: Shortness Of Breath Or Wheezing Aspirin (Aspirin Ec 81 Mg Tablet) 81 mg PO DAILY ROSS Atorvastatin Calcium (Atorvastatin 20 Mg Tablet) 40 mg PO DAILY ROSS Budesonide (Budesonide 0.5 Mg/2 Ml Neb) 0.5 mg INH RTBID ROSS Sodium Chloride (Normal Saline 0.9%) 1,000 mls @ 150 mls/hr IV CONT ROSS Last Admin: 08/30/20 12:07 Dose: 150 mls/hr Documented by: HARPER Lorazepam (Lorazepam 0.5 Mg Tablet) 0.5 mg PO Q8H PRN PRN Reason: anxiety Naloxone HCl (Naloxone 0.4 Mg/Ml Vial) 0.2 mg IV Q2MIN PRN PRN Reason: Opiate Reversal Nitroglycerin (Nitroglycerin 0.4 Mg Sl Tab) 0.4 mg SL [id number] PRN PRN Reason: Chest Pain Last Admin: 08/31/20 00:48 Dose: 0.4 mg Documented by: Admin: 08/30/20 12:08 Dose: 0.4 mg Documented by: HARPER Thyroid (Thyroid, Pork 30 Mg Tablet) 30 mg PO DAILY [facility] Thyroid (Thyroid, Pork 60 Mg Tablet) 120 mg PO DAILY ROSS Discontinued Medications Albuterol (Albuterol Hfa Mdi 60 Puff/8 Gm Inhaler) 2 puff INH QIDP PRN PRN Reason: shortness of breath or wheezing Aspirin (Aspirin 81 Mg Chew Tab) 324 mg PO NOW ONE Stop: 08/30/20 11:56 Last Admin: 08/30/20 12:07 Dose: 324 mg Documented by: HARPER Non-Formulary Medication (Fluticasone Propionate [Flovent Hfa]) 2 puff INHALATION BID ROSS Reevaluation(s) Reevaluation #1: Complete resolution of symptoms after 1 nitro Time: 12:22 Vital Signs Vital signs: Vital Signs - 8 hr 08/30/20 11:52 08/30/20 12:08 Temperature 98.1 F Pulse Rate 51 L 49 L Respiratory Rate 20 Blood Pressure 136/77 120/74 Pulse Oximetry 100 MDM - Chest Pain Lab Data Result diagrams: 08/30/20 11:55 08/30/20 11:55 Labs: Lab Results 08/30/20 08/30/20 08/30/20 Range/Units 11:55 11:55 11:55 WBC 9.6 (4.5-11.0) X10^3/uL RBC 4.68 (4.0-5.2) X10^6/uL Hgb 13.8 (12.0-16.0) g/dL Hct 41.2 (36-46) % MCV 88.1 (80-100) fL MCH 29.5 (26-34) PG MCHC 33.5 (30-36) % RDW 13.4 (11.6-14.8) % Plt Count 440 H (150-400) X10^3/uL Neut % (Auto) 65.2 (50-75) % Lymph % (Auto) 24.1 L (25-40) % [place] % (Auto) 5.9 (3-14) % Eos % (Auto) 4.0 (2-4) % Baso % (Auto) 0.8 (0-2) % Neut # (Auto) 6300 (8479-8827) /uL Lymph # (Auto) 2300 (7909-1857) /uL [place] # (Auto) 600 (0-900) /uL Eos # (Auto) 400 (0-450) /uL Baso # (Auto) 100 (0-100) /uL PT 10.8 (10.1-12.7) SECONDS INR 1.0 (0.9-1.3) APTT 33 (26.4-36.2) SECONDS Sodium 138 (137-145) mmol/L Potassium 3.6 (3.4-5.1) mmol/L Chloride 104 (98-107) mmol/L Carbon Dioxide 25 (22-32) mmol/L BUN 10 (7-17) mg/dL Creatinine 0.70 (0.52-1.04) mg/dL Estimated GFR > 60.0 (>60) mL/min BUN/Creatinine Ratio 14.3 (6-22) Glucose 92 (70-100) mg/dL Calcium 9.2 (8.4-10.2) mg/dL Total Bilirubin 0.3 (0.2-1.3) mg/dL AST 23 (14-36) IU/L ALT 19 (<35) IU/L Alkaline Phosphatase 102 (38-126) U/L Total Creatine Kinase 67 (30-135) U/L CK-MB (CK-2) TNP CK-MB (CK-2) Rel Index TNP Troponin I < 0.012 (0.01-0.034) ng/mL NT-Pro-B Natriuret Pep 186 H (<125) pg/mL Total Protein 7.9 (6.3-8.2) g/dL Albumin 4.3 (3.5-5.0) g/dL Globulin 3.6 (1.7-4.1) g/dL Albumin/Globulin Ratio 1.2 (1.0-2.8) Lipase 27 (23-300) U/L Procalcitonin 0.03 (<0.5) ng/mL SARS-CoV-2 (PCR) (Negative) 08/30/20 Range/Units 12:18 WBC (4.5-11.0) X10^3/uL RBC (4.0-5.2) X10^6/uL Hgb (12.0-16.0) g/dL Hct (36-46) % MCV (80-100) fL MCH (26-34) PG MCHC (30-36) % RDW (11.6-14.8) % Plt Count (150-400) X10^3/uL Neut % (Auto) (50-75) % Lymph % (Auto) (25-40) % [place] % (Auto) (3-14) % Eos % (Auto) (2-4) % Baso % (Auto) (0-2) % Neut # (Auto) (7985-4523) /uL Lymph # (Auto) (3877-3909) /uL [place] # (Auto) (0-900) /uL Eos # (Auto) (0-450) /uL Baso # (Auto) (0-100) /uL PT (10.1-12.7) SECONDS INR (0.9-1.3) APTT (26.4-36.2) SECONDS Sodium (137-145) mmol/L Potassium (3.4-5.1) mmol/L Chloride (98-107) mmol/L Carbon Dioxide (22-32) mmol/L BUN (7-17) mg/dL Creatinine (0.52-1.04) mg/dL Estimated GFR (>60) mL/min BUN/Creatinine Ratio (6-22) Glucose (70-100) mg/dL Calcium (8.4-10.2) mg/dL Total Bilirubin (0.2-1.3) mg/dL AST (14-36) IU/L ALT (<35) IU/L Alkaline Phosphatase (38-126) U/L Total Creatine Kinase (30-135) U/L CK-MB (CK-2) CK-MB (CK-2) Rel Index Troponin I (0.01-0.034) ng/mL NT-Pro-B Natriuret Pep (<125) pg/mL Total Protein (6.3-8.2) g/dL Albumin (3.5-5.0) g/dL Globulin (1.7-4.1) g/dL Albumin/Globulin Ratio (1.0-2.8) Lipase (23-300) U/L Procalcitonin (<0.5) ng/mL SARS-CoV-2 (PCR) Negative (Negative) MDM Narrative Medical decision making narrative: 40-year-old female with very strong family history presents with a concerning history, squeezing pain with radiation to her arm and complete resolution with nitro. Her initial EKG had nonspecific findings that resolved with nitro. Her heart score is 4, patient requires hospitalization for further evaluation and characterization of her episode with serial troponins, echocardiogram and possible stress test Discharge Plan Departure Patient Disposition: Admitted as Observation Clinical Impression: Chest pain Admit Date/Time: 08/30/20 13:54 Admit Provider: Erickson Espana
[2020-08-30 12:27] LABS: NT-proBNP (BNP-Adult 18+) 186 pg/mL (<125); Troponin I < 0.012 ng/mL (0.01-0.034)
[2020-08-30 12:42] LABS: Procalcitonin 0.03 ng/mL (<0.5)
[2020-08-30 13:24] LABS: COVID19 - ADMIT (NP swab/PCR) Negative (Negative)
--- NOTE | 2020-08-30 15:22 | PC.NURSE ---
Admit Note Arrived to room from ER at 1440, ambulated to bed without issue. Denies pain at this time, SB in the 40-50s on monitor. SPo2 upper 90s. Oriented to room and to call light/bed/tv controls. Call light within reach. Belongings at bedside, declines to lock up.
--- NOTE | 2020-08-30 21:29 | PM.HP.1 ---
History of Present Illness History of Present Illness Date Patient Seen: 08/30/20 Time Patient Seen: 15:29 Chief complaint: pretty intense arm pain and chest tightness Narrative: Ms. Cunningham is a 40W PMH of asthma, thyroid cancer s/p thyroidectomy with hypothyroidism, PTSD/anxiety, who comes in to the hospital with chest pressure. She states that discomfort began initially in her arm early this AM. She took ibuprofen and nebulizer. Her symptoms resovled, but then came back with similar arm discomfort along with chest pressure and shortness of breath. Chest discomfort feels heavy and squeezing. She has multiple family members who had WI including her mother at age 42. She has never had any symptoms like this. In the ER workup was done, vitals were unremarkable. Nitro improved chest discomfort. EKG showed no definitive ischemia, questionable st depression in inferior lead. Labs notable for normal CBC, INR, BMP. Initial troponin negative. She was given aspirin and admitted for further treatment. Patient History Medical History Acquired hypothyroidism Allergic rhinitis (2008) Anaphylaxis Anemia (2004) Anorexia nervosa (1999) Anxiety (Unknown) Asthma (2004) Asthma exacerbation (~2003) Benign familial tremor (~2012) Blindness Carpal tunnel syndrome (2013) Chicken pox (1986) Chickenpox (1986) Chronic back pain (2014) Cyst of ovary Depression (Unknown) Fibroids (~2015) Headache (~2010) Hypothyroidism (2009) Migraines (2009) Mild persistent asthma Ovarian cyst (2001) Partial blindness (1981) Postprocedural hypothyroidism (~2009) Preventative health care PTSD (post-traumatic stress disorder) (2009) Shoulder pain (2013) Thyroid cancer (2009) Thyroid nodule (2000) UTI (urinary tract infection) Vertigo (2008) Surgical History Anesthesia complication History of thyroidectomy (2009) Hx of eye surgery (1984) Hx of removal of cyst (2013) Hx of tonsillectomy (2001) Status post delivery (2007) Family & Social History Family History Father Dementia Mental health problem Addiction Mother Diabetes mellitus Heart attack Hypertension Uterine cancer Heart disease Grandfather Cancer Heart disease Hypertension Hyperlipidemia Stroke Pancreatic cancer Lung cancer Grandmother Diabetes mellitus Hypertension Mental health problem Blood infection Heart disease Grandfather Heart disease Stroke Cancer Grandmother Diabetes mellitus Social History: household members significant other,children Prior Living Arrangements House Safety & Behavioral: Feels Safe in Current Yes Environment Been Physically Hurt or No Threatened By a Person Suicidal Ideation Description None Tobacco & Substance use: Smoking Status Never smoker alcohol intake current alcohol intake frequency 0-2 drinks per day Substance Use Type does not use Meds Home Medications and Allergies Home Medications Medication Instructions Recorded Confirmed Type albuterol sulfate 2.5 mg INHALATION Q6-8H PRN #15 ml 07/14/19 08/30/20 Rx nebulizer #1 ea 07/15/19 08/30/20 Rx epinephrine 0.3 mg/0.3 mL 0.3 mg IM Q5-15M PRN #2 each 12/15/19 08/30/20 Rx injection, auto-injector fluticasone propionate 110 2 puff INHALATION BID #12 g 07/21/20 08/30/20 Rx mcg/actuation HFA aerosol inhaler lorazepam 0.5 mg tablet 0.5 mg PO Q8H PRN #15 tab 07/21/20 08/30/20 Rx albuterol sulfate 90 mcg/actuation 2 puff INHALATION QIDP PRN #2 each 08/04/20 08/30/20 Rx aerosol inhaler thyroid (pork) 120 mg tablet 120 mg PO DAILY #60 tab 08/22/20 08/30/20 Rx thyroid (pork) 30 mg tablet 30 mg PO DAILY #60 tab 08/22/20 08/30/20 Rx Allergies Allergy/AdvReac Type Severity Reaction Status Date / Time amoxicillin [AMOXICILLIN] Allergy Mild HIVES Verified 08/30/20 11:57 Penicillins [PENICILLINS] Allergy Unknown Verified 08/30/20 11:57 morphine [MORPHINE] AdvReac Mild HALLUCINATI Verified 08/30/20 11:57 ONS oxycodone [OXYCODONE] AdvReac Mild VOMITING Verified 08/30/20 11:57 Review of Systems Review of Systems Narrative: 14 systems reviewed and negative aside from what is noted in HPI Exam Vital Signs (past 8 hours): - 08/30/20 13:30 08/30/20 13:49 08/30/20 13:50 Temperature Pulse Rate 50 L 51 L 50 L Respiratory Rate 19 35 H 25 H Blood Pressure 141/82 H 129/60 129/75 Pulse Oximetry 99 98 98 08/30/20 13:55 08/30/20 14:00 08/30/20 14:01 Temperature Pulse Rate 53 L 59 L 57 L Respiratory Rate 28 H 26 H 30 H Blood Pressure 121/69 143/66 H Pulse Oximetry 99 98 97 08/30/20 14:30 08/30/20 15:00 08/30/20 19:00 Temperature 98.4 F 98.4 F Pulse Rate 50 L 62 Respiratory Rate 19 18 Blood Pressure 128/79 117/80 Pulse Oximetry 99 99 97 Oxygen Delivery Method Room Air Oxygen Flow Rate 0 Narrative Exam Narrative: GEN: no acute distress HEENT: PERRL, moist mucous membranes NECK: trachea midline, no JVD CV: RRR with no murmurs PULM: clear bilaterally with no wheezes, rhonchi, rales ABD: soft, nontender, nondistended, with no organomegaly, normal bowel sounds EXT: warm and well perfused with no edema NEURO: AAOx3, moving all extremities SKIN: no rashes noted Objective Labs Result Diagrams: 08/30/20 11:55 08/30/20 11:55 Labs: Laboratory Results - last 24 hr 08/30/20 08/30/20 08/30/20 11:55 11:55 11:55 WBC 9.6 RBC 4.68 Hgb 13.8 Hct 41.2 MCV 88.1 MCH 29.5 MCHC 33.5 RDW 13.4 Plt Count 440 H Neut % (Auto) 65.2 Lymph % (Auto) 24.1 L Glasscock % (Auto) 5.9 Eos % (Auto) 4.0 Baso % (Auto) 0.8 Neut # (Auto) 6300 Lymph # (Auto) 2300 Glasscock # (Auto) 600 Eos # (Auto) 400 Baso # (Auto) 100 PT 10.8 INR 1.0 APTT 33 Sodium 138 Potassium 3.6 Chloride 104 Carbon Dioxide 25 BUN 10 Creatinine 0.70 Estimated GFR > 60.0 BUN/Creatinine Ratio 14.3 Glucose 92 Calcium 9.2 Total Bilirubin 0.3 AST 23 ALT 19 Alkaline Phosphatase 102 Total Creatine Kinase 67 CK-MB (CK-2) TNP CK-MB (CK-2) Rel Index TNP Troponin I < 0.012 NT-Pro-B Natriuret Pep 186 H Total Protein 7.9 Albumin 4.3 Globulin 3.6 Albumin/Globulin Ratio 1.2 Lipase 27 Procalcitonin 0.03 Nasal Screen MRSA (PCR) SARS-CoV-2 (PCR) 08/30/20 08/30/20 12:18 15:32 WBC RBC Hgb Hct MCV MCH MCHC RDW Plt Count Neut % (Auto) Lymph % (Auto) Glasscock % (Auto) Eos % (Auto) Baso % (Auto) Neut # (Auto) Lymph # (Auto) Glasscock # (Auto) Eos # (Auto) Baso # (Auto) PT INR APTT Sodium Potassium Chloride Carbon Dioxide BUN Creatinine Estimated GFR BUN/Creatinine Ratio Glucose Calcium Total Bilirubin AST ALT Alkaline Phosphatase Total Creatine Kinase CK-MB (CK-2) CK-MB (CK-2) Rel Index Troponin I NT-Pro-B Natriuret Pep Total Protein Albumin Globulin Albumin/Globulin Ratio Lipase Procalcitonin Nasal Screen MRSA (PCR) Negative for mrsa SARS-CoV-2 (PCR) Negative Assessment & Plan Assessment & Plan narrative: Ms. Cunningham is a 40W with asthma who comes in with chest pressure. 1. Acute chest pain -patient with significant family history of WI -has no notable ischemia on EKG -initial troponin negative -trend troponins -ordered for aspirin and statin -plan for stres test in AM 2. Asthma -not currently in exacerbation -will continue home albuterol inhaler 3. PTSD with anxiety -patient denies any recent anxiety -has had panic attacks in past which never felt like this -continue home dose lorazepam 4. History of thyroid cancer s/p thyroidectomy now with hypothyroidism -order patient for her home dose of thyroid replacement DVT ppx: SCDs Diet: cardiac IVF: none Code status: Full, proxy is James Arguello VTE Deep Vein Thrombosis/Pulmonary Embolism Present on Admission: No
[2020-08-30 21:58] LABS: Troponin I < 0.012 ng/mL (0.01-0.034)
[2020-08-30 23:32] LABS: Troponin I < 0.012 ng/mL (0.01-0.034)
[2020-08-31] VITALS (8 sets, daily range): BP systolic 103–122; BP diastolic 58–73; PULSE 52–62; RESP 16–18; TEMP 36.2–36.9; O2SAT 96–100
[2020-08-31] MEDS: NITROGLYCERIN 0.4 MG SL TAB SL ×2 (00:48→14:40)
--- NOTE | 2020-08-31 01:08 | PC.NURSE ---
0045 - Patient complaining of chest tightness, vital signs stable at this time, PRN nitro given x1, patient stated she felt relief, MD notified of chest tightness and that nitro was given.
[2020-08-31 05:54] LABS: Add Manual Diff / Slide Review NO; Basophils Absolute Auto 0 /uL (0-100); Basophils Percent Auto 0.4 % (0-2); Eosinophils Absolute Auto 500 /uL (0-450); Hematocrit 36.5 % (36-46); Hemoglobin 12.1 g/dL (12.0-16.0); Lymphocytes Absolute Auto 2700 /uL (1100-4500); Lymphocytes Percent Auto 28.6 % (25-40); Mean Corpuscular Hemoglobin 29.2 PG (26-34); Mean Corpuscular Volume 88.4 fL (80-100); Monocytes Absolute Auto 600 /uL (0-900); Neutrophils Absolute Auto 5700 /uL (1500-7000); Platelet Count 402 X10^3/uL (150-400); Red Blood Cell Count 4.13 X10^6/uL (4.0-5.2); Red Cell Distribution Width 13.4 % (11.6-14.8); White Blood Cell Count 9.5 X10^3/uL (4.5-11.0)
[2020-08-31 06:00] LABS: BUN Creatinine Ratio 19.1 (6-22); Blood Urea Nitrogen 13 mg/dL (7-17); Calcium 8.7 mg/dL (8.4-10.2); Carbon Dioxide 24 mmol/L (22-32); Chloride 106 mmol/L (98-107); Estimated Glomerular Filt Rate > 60.0 mL/min (>60); Glucose 89 mg/dL (70-100); HEMOLYSIS < 15 (0-50); Potassium 3.5 mmol/L (3.4-5.1); Sodium 137 mmol/L (137-145)
[2020-08-31 07:52] LABS: NT-proBNP (BNP-Adult 18+) 156 pg/mL (<125)
[2020-08-31 07:54] LABS: Troponin I < 0.012 ng/mL (0.01-0.034)
[2020-08-31] MEDS: ATORVASTATIN 20 MG TABLET 40 MG PO (08:28)
[2020-08-31] MEDS: BUDESONIDE 0.5 MG/2 ML NEB INH (08:28)
[2020-08-31] MEDS: THYROID, PORK 60 MG TABLET 120 MG PO (08:28)
[2020-08-31] MEDS: THYROID, PORK 30 MG TABLET PO (08:28)
[2020-08-31] MEDS: ASPIRIN EC 81 MG TABLET PO (08:29)
--- NOTE | 2020-08-31 10:07 | PM.DS.1 ---
History of Present Illness History of Present Illness Chief complaint: pretty intense arm pain and chest tightness Narrative: Ms. Cunningham is a 40W PMH of asthma, thyroid cancer s/p thyroidectomy with hypothyroidism, PTSD/anxiety, who comes in to the hospital with chest pressure. She states that discomfort began initially in her arm early this AM. She took ibuprofen and nebulizer. Her symptoms resovled, but then came back with similar arm discomfort along with chest pressure and shortness of breath. Chest discomfort feels heavy and squeezing. She has multiple family members who had PA including her mother at age 42. She has never had any symptoms like this. In the ER workup was done, vitals were unremarkable. Nitro improved chest discomfort. EKG showed no definitive ischemia, questionable st depression in inferior lead. Labs notable for normal CBC, INR, BMP. Initial troponin negative. She was given aspirin and admitted for further treatment. Discharge Providers Provider Date of admission: 08/30/20 13:54 Discharge Date: 08/31/20 Primary care physician: LISA Montoya Discharge provider: Erickson Espana MD Summary Hospital Course Discharge Diagnosis: 1. Atypical chest pain, left arm pain 2. Asthma 3. PTSD with anxiety 4. History of thyroid cancer s/p thyroidectomy now with hypothyroidism Hospital Course: Ms. Cunningham came in with arm pain and chest discomfort. She was evaluated for possible cardiac etiology given significant cardiac history in family including mother having a heart attack at 42. She had no arrhythmia on telemetry. She had negative troponins x3. She had no ischemia on EKG. She underwent stress test with no evidence of any ischemic changes, consistent with low risk stress test. She was feeling back to baseline and will be discharged home Exam Vital Signs (past 8 hours): Oxygen Delivery Method Room Air Oxygen Flow Rate 0 Narrative Exam Narrative: GEN: no acute distress HEENT: PERRL, moist mucous membranes NECK: trachea midline, no JVD CV: RRR with no murmurs PULM: clear bilaterally with no wheezes, rhonchi, rales ABD: soft, nontender, nondistended, with no organomegaly, normal bowel sounds EXT: warm and well perfused with no edema NEURO: AAOx3, moving all extremities SKIN: no rashes noted Objective Labs Result Diagrams: 08/31/20 05:25 08/31/20 05:25 [facility] Medical History Acquired hypothyroidism Allergic rhinitis (2008) Anaphylaxis Anemia (2005) Anorexia nervosa (1999) Anxiety (Unknown) Asthma (2004) Asthma exacerbation (~2003) Benign familial tremor (~2012) Blindness Carpal tunnel syndrome (2013) Chicken pox (1986) Chickenpox (1986) Chronic back pain (2014) Cyst of ovary Depression (Unknown) Fibroids (~2015) Headache (~2009) Hypothyroidism (2009) Migraines (2009) Mild persistent asthma Ovarian cyst (2001) Partial blindness (1981) Postprocedural hypothyroidism (~2009) Preventative health care PTSD (post-traumatic stress disorder) (2009) Shoulder pain (2013) Thyroid cancer (2009) Thyroid nodule (2000) UTI (urinary tract infection) Vertigo (2008) Surgical History Anesthesia complication History of thyroidectomy (2009) Hx of eye surgery (1984) Hx of removal of cyst (2013) Hx of tonsillectomy (2001) Status post delivery (2007) Family History Father Dementia Mental health problem Addiction Mother Diabetes mellitus Heart attack Hypertension Uterine cancer Heart disease Grandfather Cancer Heart disease Hypertension Hyperlipidemia Stroke Pancreatic cancer Lung cancer Grandmother Diabetes mellitus Hypertension Mental health problem Blood infection Heart disease Grandfather Heart disease Stroke Cancer Grandmother Diabetes mellitus Social History household members: significant other and children Smoking Status: Never smoker alcohol intake: current substance use type: does not use Discharge Plan Discharge Plan Patient Disposition: Home Provider Discharge Comment: Ms. Cunningham came in with arm pain and chest discomfort. She has a family history of heart attacks. She had workup done which was negative for a heart attack. She had a stress test done that was low risk for any issues. 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 She should follow up with PCP. Discharge orders & Medications Prescriptions: Continued albuterol sulfate 2.5 mg /3 mL (0.083 %) solution for nebulization 2.5 mg INHALATION Q6-8H PRN (Reason: shortness of breath or wheezing) Qty: 15 RF: 0 albuterol sulfate [Ventolin HFA] 90 mcg/actuation HFA aerosol inhaler 2 puff INHALATION QIDP PRN (Reason: shortness of breath or wheezing) Qty: 2 RF: 11 thyroid (pork) [FISHING ROD ASSEMBLER Thyroid] 30 mg tablet 30 mg PO DAILY Qty: 60 RF: 0 thyroid (pork) [FISHING ROD ASSEMBLER Thyroid] 120 mg tablet 120 mg PO DAILY Qty: 60 RF: 0 epinephrine 0.3 mg/0.3 mL auto-injector 0.3 mg IM Q5-15M PRN (Reason: anaphylaxis) Qty: 2 RF: 2 Flovent HFA 110 mcg/actuation HFA aerosol inhaler 2 puff inhalation BID Qty: 12 RF: 3 lorazepam 0.5 mg tablet 0.5 mg PO Q8H PRN (Reason: anxiety) Qty: 15 RF: 0 No Action (DME) nebulizer Qty: 1 RF: 0 Follow up/Referrals: Jaskaran Hadley ARNP [Primary Care Provider] - Diet/Activity/Treatments Diet: Diet as Tolerated Discharge Data Primary Care Provider: Jaskaran Hadley Attending Provider: Erickson Espana VTE Deep Vein Thrombosis/Pulmonary Embolism Present on Admission: No MIPS - DC The patient has current or prior documentation of left ventricular ejection fraction (LVEF) less than 40%, or moderate or severely depressed left ventricular systolic function.: No
--- NOTE | 2020-08-31 13:33 | PM.TREADMILL ---
Cardiac Stress Test Report Referral & Results Date Patient Seen: 08/31/20 Time Patient Seen: 13:33 Requesting provider: Ramo Kendrick Indication: chest tightness Rest ECG: Sinus bradycardia Procedure Note: Standard Daniel protocol, 7:00 MINS, 7.8 METS Reduced exercise capacity, RAVI +42% Normal hemodynamic response to exercise No chest pain or anginal symptoms No significant ST changes at peak exercise No ectopy Expiratory wheezing in recovery with SPO2 95-96% Expiratory wheezing responded to 2 puffs of albuterol. Impression: Normal exercise stress test Please note: Actual ECG tracings can be found in the PACS system.
[2020-08-31] MEDS: ONDANSETRON 4 MG/2 ML INJ IV (14:35)
--- NOTE | 2020-08-31 14:58 | PC.NURSE ---
Shift SUmmary Upon shift change, pt resting comfortably in bed, NPO except water. Denied chest pain/tightness/shortness of breath. Vital signs stable. Pt went for nuclear medicine at 0910. Returned at 0930. Pt went for second scan at 1250. Pt needed to use personal inhaler for an asthma attack down at the scan. Towards 1420, pt began having a bit of nausea and slight chest tightness. Pt given zofran and nitro x1. Symptoms relieved.
--- NOTE | 2020-08-31 17:17 | PC.NURSE ---
Discharge note: Pt and were educated on discharge instructions and findings of recent stress test, Dr. Espana at bedside to discuss findings and discharge instructions. Pt PIV removed with catheter intact. All questions and concerns addressed. Pt dressed and all belongings taken with her. This nurse escorted pt to private vehicle and assisted into. No further patient contact at this time.
--- NOTE | 2020-09-01 11:14 | DI.NM.S_ITS ---
DATE OF SERVICE: 08/31/2020 PROCEDURE: Exercise perfusion study. INDICATIONS: Chest pain with very strong history of premature coronary artery disease in multiple family members, including mother, who had myocardial infarction at age 42. RADIOPHARMACEUTICAL: 24.0 millicurie technetium-99m Myoview IV was injected at stress and 12.1 millicurie technetium-99m Myoview IV was injected at rest. CARDIAC STRESS: The patient underwent exercise perfusion study under the supervision of an attending staff. She walked on Daniel protocol for 7 minutes and achieved 95 percent of target heart rate, 7.8 METs of workload and functional aerobic impairment positive 42 percent. There was normal blood pressure response. No anginal pain or chest discomfort, however, had shortness of breath. At the end of exercise, patient had expiratory wheezing, which got improved with two puffs of Albuterol. RAW DATA: There was breast shadow seen. GATED STUDY: Stress LV ejection fraction 96 percent without any obvious wall motion abnormalities. Resting end-diastolic volume 95 mL. TID ratio 0.57, which is within normal limits. Lung/heart ratio 0.43, which is within normal limits. MYOCARDIAL PERFUSION: Resting supine, stress supine and stress prone images were compared to each other. Resting supine images revealed a small size, mildly decreased perfusion of distal anterior wall and distal anteroseptum, which got completely resolved during stress supine and stress prone images. Stress supine and stress prone images revealed normal myocardial perfusion. CONCLUSION: I will call this study a normal myocardial perfusion study with diminished exercise tolerance without any anginal symptoms. Baseline electrocardiogram revealed sinus rhythm. During stress, no convincing ischemic electrocardiographic changes seen. The patient had wheezing, which responded to two puffs of Albuterol. As far as perfusion scan is concerned, this is a low- risk myocardial perfusion scan. [employer]/sunny/lc doc#: [id number]/job#: [id number] dd: 08/31/2020 16:42:00 dt: 08/31/2020 19:52:00 DICTATING MD/COPIES TO: Rosa Elena Pham MD COPIES MNE: THIAGO;
--- NOTE | 2020-09-06 15:33 | PC.NURSE ---
Late Entry- RN DC'd IV fluids prior to admission to the floor- saline lock IV site.
== END 2020-08-31 17:05 | disposition home or self-care (01) ==
LOC: ED 12:22 → AC 13:54 → ICU 14:51
PROVIDERS: Nurse Practitioner Family; Admitting Provider Internal Medicine; Emergency Provider Emergency Medicine; PCP Registered Nurse Diabetes Educator; Referring Provider Emergency Medicine; Visit Provider Internal Medicine
DX: R07.9 Chest pain, unspecified (principal); M79.622 Pain in left upper arm; J45.909 Unspecified asthma, uncomplicated; F43.10 Post-traumatic stress disorder, unspecified; F41.9 Anxiety disorder, unspecified; E89.0 Postprocedural hypothyroidism; Z85.850 Personal history of malignant neoplasm of thyroid; Z20.822 Contact with and (suspected) exposure to COVID-19
CPT/HCPCS: 36415; 36592; 71045; 78452; 80048; 80053; 82550; 83690; 83880; 84145; 84484; 85025; 85610; 85730; 87635; 87797; 93005; 93010; 93017; 96361; 96374; 99284; C9803; G0378; A9502; J2405

== ENCOUNTER 2020-12-01 18:29 | Emergency (ER) | payer OTHER, MEDICAID, SELFPAY ==
[2020-08-30 14:48] VITALS: BMI 31.8
[2020-12-01] VITALS (9 sets, daily range): BP systolic 106–131; BP diastolic 57–89; PULSE 59–71; RESP 12–21; TEMP 36.4; O2SAT 96–99; BMI 31.8
[2020-12-01 19:21] LABS: RBC Urine None Seen (0-5/HPF)
[2020-12-01 19:25] LABS: Appearance Urine UA CLEAR; Bilirubin Urine UA NEGATIVE (NEGATIVE); Color Urine UA YELLOW; Glucose Urine UA NEGATIVE (Negative); Ketones Urine UA NEGATIVE (NEGATIVE); Leukocyte Esterase Urine UA NEGATIVE (NEGATIVE); Nitrite Urine UA NEGATIVE (Negative); Occult Blood Urine UA NEGATIVE (Negative); Protein Urine UA NEGATIVE (Negative); Specific Gravity Urine UA <=1.005 (1.000-1.035); Urobilinogen Urine UA 0.2 E.U./dL (0.2)
--- NOTE | 2020-12-01 19:34 | ED.ABDPAIN ---
HPI - Abdominal Pain General Chief Complaint: Abdominal Pain Stated Complaint: Rt Sided Abd Pain/Swelling Time Seen by Provider: 12/01/20 19:25 History of Present Illness HPI narrative: 40-year-old female, ADHD, IBS, PTSD presents with her significant other and a chief complaint of right upper quadrant right flank and right back pain for the past 3 days. It started rather suddenly and has been gradually worsening, become more intense and persistent. She states it is better with rest and improves with rest. She denies nausea, vomiting or diarrhea. She denies any fever or chills. She denies any chance of as her tubes have been tied. She denies any obvious provocation with eating or drinking. Related Data Previous Rx's Medication Instructions Recorded nebulizer #1 ea 07/15/19 epinephrine 0.3 mg/0.3 mL 0.3 mg IM Q5-15M PRN #2 each 12/15/19 injection, auto-injector fluticasone propionate 110 2 puff INHALATION BID #12 g 07/21/20 mcg/actuation HFA aerosol inhaler (Flovent HFA) lorazepam 0.5 mg tablet 0.5 mg PO Q8H PRN #15 tab 07/21/20 albuterol sulfate 90 mcg/actuation 2 puff INHALATION QIDP PRN #2 each 08/04/20 aerosol inhaler (Ventolin HFA) albuterol sulfate 2.5 mg INHALATION Q6-8H PRN #15 ml 11/14/20 thyroid (pork) 120 mg tablet (M[employer] OPERATIONS SPECIALIST 120 mg PO DAILY #60 tab 11/28/20 Thyroid) thyroid (pork) 30 mg tablet (M[employer] OPERATIONS SPECIALIST 30 mg PO DAILY #60 tab 11/28/20 Thyroid) Allergies Allergy/AdvReac Type Severity Reaction Status Date / Time amoxicillin [AMOXICILLIN] Allergy Mild HIVES Verified 09/12/20 15:05 Penicillins [PENICILLINS] Allergy Unknown Verified 09/12/20 15:05 morphine [MORPHINE] AdvReac Mild HALLUCINATI Verified 09/12/20 15:05 ONS oxycodone [OXYCODONE] AdvReac Mild VOMITING Verified 09/12/20 15:05 Review of Systems Review of Systems Narrative: GENERAL: Denies chills, fatigue, malaise, fever, sweats. HEENT: Denies sinus pain, ear pain, sore throat, difficulty swallowing, dizziness. RESPIRATORY: Denies dyspnea, cough, wheezing, hemoptysis, sputum. CARDIOVASCULAR: Denies chest pain, palpitations, orthopnea, edema, GASTROINTESTINAL: See HPI : Denies dysuria, frequency, incontinence, hematuria, urinary retention. MUSCULOSKELETAL: denies weakness, joint pain, or bony pain SKIN: Denies rash, skin lesions, or other NEUROLOGIC: Denies weakness, headache, numbness, change in speech, confusion, seizures, incoordination. PSYCHIATRIC: No concerning psychosocial issues. 12 point review of systems is negative except for those stated above Patient History Medical History Acquired hypothyroidism Allergic rhinitis (2008) Anaphylaxis Anemia (2004) Anorexia nervosa (1999) Anxiety (Unknown) Asthma (2004) Asthma exacerbation (~2003) Benign familial tremor (~2012) Blindness Carpal tunnel syndrome (2013) Chicken pox (1986) Chickenpox (1986) Chronic back pain (2014) Cyst of ovary Depression (Unknown) Fibroids (~2015) Headache (~2009) Hypothyroidism (2008) Migraines (2009) Mild persistent asthma Ovarian cyst (2001) Partial blindness (1981) Postprocedural hypothyroidism (~2009) Preventative health care PTSD (post-traumatic stress disorder) (2009) Shoulder pain (2013) Thyroid cancer (2009) Thyroid nodule (2000) UTI (urinary tract infection) Vertigo (2008) Surgical History Anesthesia complication History of thyroidectomy (2009) Hx of eye surgery (1984) Hx of removal of cyst (2013) Hx of tonsillectomy (2001) Status post delivery (2007) Family History Father Dementia Mental health problem Addiction Mother Diabetes mellitus Heart attack Hypertension Uterine cancer Heart disease Grandfather Cancer Heart disease Hypertension Hyperlipidemia Stroke Pancreatic cancer Lung cancer Grandmother Diabetes mellitus Hypertension Mental health problem Blood infection Heart disease Grandfather Heart disease Stroke Cancer Grandmother Diabetes mellitus Social History household members: significant other and children Smoking Status: Never smoker alcohol intake: current substance use type: does not use Smoking Status: Never smoker alcohol intake frequency: 0-2 drinks per day Substance Use Type: does not use Exam Narrative Exam Narrative: GENERAL: [40] year old patient appears stated age. Well-developed patient, in mild distress. HEAD: Atraumatic. Normocephalic. EYES: Pupils equal round and reactive. Extraocular motions intact. No scleral icterus. No injection or drainage. ENT: Nose without bleeding, purulent drainage. Throat without erythema, tonsillar hypertrophy or exudate. Airway patent. NECK: Trachea midline. Non tender CARDIOVASCULAR: Regular rate and rhythm without murmurs, gallops, or rubs. RESPIRATORY: Clear to auscultation. Breath sounds equal bilaterally. No wheezes, rales, or rhonchi. GASTROINTESTINAL: Abdomen soft, tender in right upper quadrant and right flank, nondistended. Bowel sounds present in all 4 quads EXTREMITIES: No edema or joint tenderness. BACK: Nontender without deformity or crepitance. No flank tenderness. NEURO: AOx3. SKIN: No rash or erythema of visible areas Initial Vital Signs Initial Vital Signs: Vital Signs Temperature 97.6 F 12/01/20 19:06 Pulse Rate 71 12/01/20 19:06 Respiratory Rate 16 12/01/20 19:06 Blood Pressure 131/89 12/01/20 19:06 Pulse Oximetry 97 12/01/20 19:06 Course Orders Ordered: ED Orders 12/01/20 22:38 CT abdomen pelvis w con Stat Discontinued Medications Sodium Chloride (Normal Saline 0.9%) 1,000 mls @ 1,000 mls/hr IV BOLUS ONE Stop: 12/01/20 20:37 Last Infusion: 12/01/20 21:21 Dose: 0 mls/hr Documented by: Admin: 12/01/20 20:15 Dose: 1,000 mls/hr Documented by: COLBY Vital Signs Vital signs: Vital Signs - 8 hr 12/01/20 23:00 12/02/20 00:00 12/02/20 00:30 Pulse Rate 65 64 65 Respiratory Rate 21 18 20 Blood Pressure Pulse Oximetry 97 94 95 12/02/20 00:40 12/02/20 00:41 Pulse Rate 66 Respiratory Rate 17 Blood Pressure 111/66 Pulse Oximetry 96 MDM - Abdominal Pain Lab Data Result diagrams: 12/01/20 20:05 12/01/20 20:05 Labs: Lab Results 12/01/20 12/01/20 12/01/20 Range/Units 19:10 20:05 20:05 WBC 13.5 H (4.5-11.0) X10^3/uL RBC 4.28 (4.0-5.2) X10^6/uL Hgb 12.7 (12.0-16.0) g/dL Hct 38.1 (36-46) % MCV 89.0 (80-100) fL MCH 29.8 (26-34) PG MCHC 33.4 (30-36) % RDW 14.1 (11.6-14.8) % Plt Count 415 H (150-400) X10^3/uL Neut % (Auto) 70.6 (50-75) % Lymph % (Auto) 19.0 L (25-40) % [place] % (Auto) 6.6 (3-14) % Eos % (Auto) 3.0 (2-4) % Baso % (Auto) 0.8 (0-2) % Neut # (Auto) 9500 H (5149-9059) /uL Lymph # (Auto) 2600 (4982-0798) /uL [place] # (Auto) 900 (0-900) /uL Eos # (Auto) 400 (0-450) /uL Baso # (Auto) 100 (0-100) /uL Sodium 137 (137-145) mmol/L Potassium 3.7 (3.4-5.1) mmol/L Chloride 106 (98-107) mmol/L Carbon Dioxide 24 (22-32) mmol/L BUN 10 (7-17) mg/dL Creatinine 0.65 (0.52-1.04) mg/dL Estimated GFR > 60.0 (>60) mL/min BUN/Creatinine Ratio 15.4 (6-22) Glucose 96 (70-100) mg/dL Calcium 9.2 (8.4-10.2) mg/dL Total Bilirubin 0.3 (0.2-1.3) mg/dL AST 19 (14-36) IU/L ALT 15 (<35) IU/L Alkaline Phosphatase 100 (38-126) U/L Total Protein 7.8 (6.3-8.2) g/dL Albumin 4.4 (3.5-5.0) g/dL Globulin 3.4 (1.7-4.1) g/dL Albumin/Globulin Ratio 1.3 (1.0-2.8) Lipase 39 (23-300) U/L Urine Color Yellow Urine Appearance Clear Urine pH 6.5 (4.5-8.0) Ur Specific [place] <=1.005 (1.000-1.035) Urine Protein Negative (Negative) Urine Glucose (UA) Negative (Negative) g/dL Urine Ketones Negative (NEGATIVE) Urine Occult Blood Negative (Negative) Urine Nitrate Negative (Negative) Urine Bilirubin Negative (NEGATIVE) Urine Urobilinogen 0.2 (0.2) E.U./dL Ur Leukocyte Esterase Negative (NEGATIVE) Urine RBC None seen (0-5/HPF) Urine WBC 0-1/hpf (0-5/HPF) Ur Squamous Epith Cells 1-5 /hpf (0-5/HPF) Urine Bacteria Moderate (10-30) H (None) Ur Culture Indicated? Cult not indicated Imaging Data CT scan - abdomen/pelvis: Radiologist's Impression: Normal appendix, increased stool burden within see come. Physiologic distention of gallbladder, no radiopaque gallstones. Sub cm involuting corpus luteum left ovary MDM Narrative Medical decision making narrative: Multiple etiologies for patient's symptoms considered including: [Gallbladder disease versus bowel obstruction versus kidney stone versus other] Patient's symptoms improved over duration of stay with above-stated therapies. Patient's symptoms well controlled, tolerating oral hydration. Appropriate for discharge Findings and discharge diagnosis discussed with patient/family followed by verbalization of understanding Return precautions discussed with patient/family whom verbalize understanding. Discharge Plan Departure Patient Disposition: Home Clinical Impression: Abdominal pain Instructions: DI for Abdominal Pain-Adult Activity Restrictions/Additional Instructions: *You have been diagnosed with [abdominal pain with reassuring blood work, ultrasound and CT scan. No evidence of infection, and need for surgical intervention or other obvious source of pain other than the large amount of stool in the right side of your abdomen] *What to do: *Please continue to take your regular medications as directed. [ ] New medication prescriptions sent to your pharmacy: [ ] [ ] New medication written as a paper prescription [ ] No new medications given *Take over the counter medications as directed: 1. Metamucil - is a bulk forming laxative and adds fiber 2. Colace - softens your stool 3. Dulcolax suppository - stimulates your bowels *Follow up with your primary care provider in 2-3 days, call for appointment *Return to ER if you should have any new, worsening or concerning symptoms *Drink plenty of water and eat foods high in fiber *Stay as active as you can as this helps move your bowels as well Prescriptions: No Action (DME) nebulizer Qty: 1 RF: 0 albuterol sulfate [Ventolin HFA] 90 mcg/actuation HFA aerosol inhaler 2 puff INHALATION QIDP PRN (Reason: shortness of breath or wheezing) Qty: 2 RF: 11 albuterol sulfate 2.5 mg /3 mL (0.083 %) solution for nebulization 2.5 mg INHALATION Q6-8H PRN (Reason: shortness of breath or wheezing) Qty: 15 RF: 0 thyroid (pork) [M[employer]OURCE OPERATIONS SPECIALIST Thyroid] 30 mg tablet 30 mg PO DAILY Qty: 60 RF: 0 thyroid (pork) [MILIT[employer]OURCE OPERATIONS SPECIALIST Thyroid] 120 mg tablet 120 mg PO DAILY Qty: 60 RF: 0 epinephrine 0.3 mg/0.3 mL auto-injector 0.3 mg IM Q5-15M PRN (Reason: anaphylaxis) Qty: 2 RF: 2 Flovent HFA 110 mcg/actuation HFA aerosol inhaler 2 puff inhalation BID Qty: 12 RF: 3 lorazepam 0.5 mg tablet 0.5 mg PO Q8H PRN (Reason: anxiety) Qty: 15 RF: 0 Referrals: Jaskaran Hadley ARNP [Primary Care Provider] -
[2020-12-01 19:36] LABS: WBC Urine 0-1/HPF (0-5/HPF); pH Urine UA 6.5 (4.5-8.0)
[2020-12-01 19:37] LABS: Bacteria Urine Moderate (10-30); Culture Indicated Urine Cult Not Indicated; Squamous Epithelial Cell Urine 1-5 /HPF (0-5/HPF)
--- NOTE | 2020-12-01 19:38 | DI.US.S_ITS ---
PROCEDURE: US ABDOMEN LIMITED INDICATIONS: RUQ pain radiates to the back TECHNIQUE: Real-time focused scanning was performed of the abdomen, with image documentation. COMPARISON: None. FINDINGS: Liver is normal in size. Liver is diffusely echogenic. No focal hepatic mass lesions. Gallbladder is sonographically normal. No gallstones. No gallbladder wall thickening. No pericholecystic fluid. No sonographic Montoya sign. Biliary tree is nondilated. Common bile duct measures 3.6 millimeters. Francheska F head and body pancreas are sonographically normal. Tail of the pancreas is obscured by bowel gas. IMPRESSION: 1. No sonographic evidence of cholelithiasis or cholecystitis. If there is continued clinical concern for cholecystitis, a nuclear medicine HIDA scan should be considered for further evaluation. 2. Echogenic liver. Finding typically represents fatty infiltration; however, finding is nonspecific and correlation with clinical and laboratory findings is recommended to exclude other etiologies including hepatic cirrhosis. Dictated by: Ellyn Hardy MD, PhD on 12/02/2020 at 8:54 Approved by: Ellyn Hardy MD, PhD on 12/02/2020 at 8:55
[2020-12-01] MEDS: SODIUM CHLORIDE 0.9% 1,000 ML 1000 ML IV (20:15)
[2020-12-01 20:25] LABS: Alanine Aminotransferase 15 IU/L (<35); Albumin 4.4 g/dL (3.5-5.0); Albumin Globulin Ratio 1.3 (1.0-2.8); Alkaline Phosphatase 100 U/L (38-126); Aspartate Aminotransferase 19 IU/L (14-36); BUN Creatinine Ratio 15.4 (6-22); Bilirubin Total 0.3 mg/dL (0.2-1.3); Blood Urea Nitrogen 10 mg/dL (7-17); Calcium 9.2 mg/dL (8.4-10.2); Carbon Dioxide 24 mmol/L (22-32); Chloride 106 mmol/L (98-107); Estimated Glomerular Filt Rate > 60.0 mL/min (>60); Globulin 3.4 g/dL (1.7-4.1); Glucose 96 mg/dL (70-100); HEMOLYSIS < 15 (0-50); Lipase 39 U/L (23-300); Potassium 3.7 mmol/L (3.4-5.1); Sodium 137 mmol/L (137-145); Total Protein 7.8 g/dL (6.3-8.2)
[2020-12-01 20:28] LABS: Add Manual Diff / Slide Review NO; Basophils Absolute Auto 100 /uL (0-100); Basophils Percent Auto 0.8 % (0-2); Eosinophils Absolute Auto 400 /uL (0-450); Hematocrit 38.1 % (36-46); Hemoglobin 12.7 g/dL (12.0-16.0); Lymphocytes Absolute Auto 2600 /uL (1100-4500); Mean Corpuscular HGB Conc 33.4 % (30-36); Mean Corpuscular Hemoglobin 29.8 PG (26-34); Monocytes Absolute Auto 900 /uL (0-900); Monocytes Percent Auto 6.6 % (3-14); Neutrophils Absolute Auto 9500 /uL (1500-7000); Neutrophils Percent Auto 70.6 % (50-75); Platelet Count 415 X10^3/uL (150-400); Red Blood Cell Count 4.28 X10^6/uL (4.0-5.2); Red Cell Distribution Width 14.1 % (11.6-14.8); White Blood Cell Count 13.5 X10^3/uL (4.5-11.0)
--- NOTE | 2020-12-01 22:38 | DI.CT.S_ITS ---
PROCEDURE: CT ABDOMEN PELVIS W CON INDICATIONS: severe right sided pain TECHNIQUE: After the administration of intravenous contrast, axial sections acquired from the lung bases to the pubic symphysis. Coronal and sagittal reformats were performed. For radiation dose reduction, the following was used: automated exposure control, adjustment of mA and/or kV according to patient size. COMPARISON: None. FINDINGS: Image quality: Excellent. Lung bases: Unremarkable. Heart: No significant findings. ABDOMEN: Liver: Unremarkable. Gallbladder: Unremarkable. Biliary ducts: Unremarkable. Pancreas: Unremarkable. Spleen: Unremarkable. Adrenal Glands: Unremarkable. Kidneys and Ureters: Unremarkable. 1.1 centimeter right renal cyst. Stomach and Bowel: Stomach, small bowel loops, and colon are unremarkable. Appendix is normal. Peritoneum: No abnormal intraperitoneal fluid. No free air. Ventral Wall: No hernias. Abdominal Nodes: No retroperitoneal or mesenteric adenopathy by size criteria. Vessels: Aorta and inferior vena cava are normal in size. PELVIS: Pelvic Organs: Unremarkable. 1.2 centimeter involuting left ovarian cyst. Bladder: Unremarkable. Pelvic Nodes: No enlarged lymph nodes. Miscellaneous: No hernias are seen. Bones: Incidental note made of L5 limbus vertebrae. Mild multilevel degenerative disc disease noted in the spine. IMPRESSION: 1. No acute disease process. 2. Appendix is normal. 3. No free fluid or free air. Dictated by: Ellyn Hardy MD, PhD on 12/02/2020 at 7:30 Approved by: Ellyn Hardy MD, PhD on 12/02/2020 at 7:35
--- NOTE | 2020-12-01 22:56 | PC.NURSE ---
PT reports after CT scan feeling shakey and coughing a little bit. Denies trouble breathing/swallowing, vitals stable, lungs clear. MD notified.
[2020-12-02] VITALS: PULSE 64; RESP 18; O2SAT 94
[2020-12-02 00:30] VITALS: PULSE 65; RESP 20; O2SAT 95
[2020-12-02 00:40] VITALS: PULSE 66; RESP 17; O2SAT 96
[2020-12-02 00:41] VITALS: BP 111/66
== END 2020-12-02 00:53 | disposition home or self-care (01) ==
PROVIDERS: Emergency Provider Emergency Medicine; PCP Registered Nurse Diabetes Educator
DX: R10.11 Right upper quadrant pain (principal)
CPT/HCPCS: 36415; 74177; 76705; 80053; 81001; 83690; 85025; 96360; 99284; Q9967

== ENCOUNTER → 2020-12-22 08:29 | Outpatient (CLI) | payer OTHER, MEDICAID, SELFPAY ==
[2020-08-30 14:48] VITALS: BMI 31.8
== END ==
PROVIDERS: PCP Registered Nurse Diabetes Educator; Visit Provider Registered Nurse
DX: R39.89 Other symptoms and signs involving the genitourinary system (principal)
CPT/HCPCS: 81002; 87086

== ENCOUNTER 2021-01-07 10:30 | Emergency (ER) | payer OTHER, MEDICAID, SELFPAY ==
[2020-08-30 14:48] VITALS: BMI 31.8
[2021-01-07] VITALS (8 sets, daily range): BP systolic 103–123; BP diastolic 57–68; PULSE 53–74; RESP 18–22; TEMP 36.4; O2SAT 96–99; BMI 31.8
--- NOTE | 2021-01-07 10:42 | ED_ITS ---
HPI - General Adult General Chief complaint: GI Bleed Stated complaint: possible food poisening, blood in stool, vomiting Time Seen by Provider: 01/07/21 10:34 Source: patient Mode of arrival: Ambulatory History of Present Illness HPI narrative: Patient is a 40-year-old female. Has had issues with her GI tract in the past with alternating constipation and diarrhea however she does not have any definitive diagnosis. She stated approximately 0300 hours in the morning she started having diarrhea. Also nausea and vomiting. This has pro gressed into a bright red mucus diarrhea. She has generalized abdominal discomfort but it does seem to be located her lower abdomen. No fevers. No recent travel. No recent antibiotics. Has not tried anything for her symptoms prior to arrival. Related Data Previous Rx's Medication Instructions Recorded nebulizer #1 ea 07/15/19 epinephrine 0.3 mg/0.3 mL 0.3 mg IM Q5-15M PRN #2 each 12/15/19 injection, auto-injector fluticasone propionate 110 2 puff INHALATION BID #12 g 07/21/20 mcg/actuation HFA aerosol inhaler (Flovent HFA) lorazepam 0.5 mg tablet 0.5 mg PO Q8H PRN #15 tab 07/21/20 albuterol sulfate 2.5 mg INHALATION Q6-8H PRN #15 ml 11/14/20 thyroid (pork) 120 mg tablet (FROG OR OYSTER FARMWORKER 120 mg PO DAILY #60 tab 11/28/20 Thyroid) thyroid (pork) 30 mg tablet (FROG OR [employer]YSTER FARMWORKER 30 mg PO DAILY #60 tab 11/28/20 Thyroid) albuterol sulfate 90 mcg/actuation 2 puff INHALATION QIDP PRN #2 each 12/06/20 aerosol inhaler (Ventolin HFA) ondansetron 4 mg disintegrating 4 mg PO Q8H PRN #10 tab 01/07/21 tablet Allergies Allergy/AdvReac Type Severity Reaction Status Date / Time amoxicillin [AMOXICILLIN] Allergy Mild HIVES Verified 01/07/21 10:44 Penicillins [PENICILLINS] Allergy Unknown Verified 01/07/21 10:44 morphine [MORPHINE] AdvReac Mild HALLUCINATI Verified 01/07/21 10:44 ONS oxycodone [OXYCODONE] AdvReac Mild VOMITING Verified 01/07/21 10:44 Review of Systems Constitutional Constitutional: Denies fatigue and Denies fever(s) Cardiovascular Cardiovascular: Reports system reviewed and no additional complaints, except as documented Respiratory Respiratory: Reports system reviewed and no additional complaints, except as documented Gastrointestinal Gastrointestinal: Reports as per HPI and Reports system reviewed and no additional complaints, except as documented Genitourinary Genitourinary: Reports system reviewed and no additional complaints, except as documented Musculoskeletal Musculoskeletal: Reports system reviewed and no additional complaints, except as documented Integumentary/Breasts Skin/Breast: Reports system reviewed and no additional complaints, except as documented Neurologic Neurologic: Reports system reviewed and no additional complaints, except as documented Endocrine Endocrine: Denies fatigue Hematologic/Lymphatic On Anticoagulants: No Patient History Medical History Abdominal pain Acquired hypothyroidism Allergic rhinitis (2008) Anaphylaxis Anemia (2004) Anorexia nervosa (1999) Anxiety (Unknown) Asthma (2004) Asthma exacerbation (~2003) Benign familial tremor (~2012) Bladder pain Blindness Carpal tunnel syndrome (2013) Chicken pox (1986) Chickenpox (1986) Chronic back pain (2014) Cyst of ovary Depression (Unknown) Fibroids (~2015) Headache (~2009) Hypothyroidism (2009) Migraines (2009) Mild persistent asthma Ovarian cyst (2001) Partial blindness (1981) Postprocedural hypothyroidism (~2009) Preventative health care PTSD (post-traumatic stress disorder) (2009) Shoulder pain (2013) Thyroid cancer (2009) Thyroid nodule (2000) UTI (urinary tract infection) Vertigo (2008) Surgical History Anesthesia complication History of thyroidectomy (2009) Hx of eye surgery (1984) Hx of removal of cyst (2013) Hx of tonsillectomy (2001) Status post delivery (2007) Family History Father Dementia Mental health problem Addiction Mother Diabetes mellitus Heart attack Hypertension Uterine cancer Heart disease Grandfather Cancer Heart disease Hypertension Hyperlipidemia Stroke Pancreatic cancer Lung cancer Grandmother Diabetes mellitus Hypertension Mental health problem Blood infection Heart disease Grandfather Heart disease Stroke Cancer Grandmother Diabetes mellitus Social History household members: significant other and children Smoking Status: Never smoker alcohol intake: current substance use type: does not use Smoking Status: Never smoker alcohol intake frequency: 0-2 drinks per day Substance Use Type: does not use Exam Initial Vital Signs Initial Vital Signs: Vital Signs Temperature 97.5 F L 01/07/21 10:39 Pulse Rate 74 01/07/21 10:39 Respiratory Rate 22 01/07/21 10:39 Blood Pressure 122/62 01/07/21 10:39 Pulse Oximetry 96 01/07/21 10:39 Const General: cooperative and comfortable HENMT Head: normal to inspection and normocephalic Eyes General: appearance normal, both eyes and all related structures Resp Effort & Inspection: normal respiratory effort Auscultation: clear to auscultation bilaterally Cardio Rate: regular rate Rhythm: regular rhythm GI Inspection: normal to inspection Palpation: soft, No firm, No guarding, No rigid and tender (Generalized) Back/Spine/Pelvis Back: No CVA tenderness Skin General: no rashes or lesions noted Neuro General: patient alert, patient awake, patient oriented x3 and moves all extremities Extrem General: normal to inspection and capillary refill normal Psych Appearance: grossly normal and well kempt Course Orders Ordered: ED Orders 01/07/21 10:50 Complete Blood Count AUTO DIFF Stat Comprehensive Metabolic Panel Stat Lipase Stat Discontinued Medications Sodium Chloride (Normal Saline 0.9%) 1,000 mls @ 1,000 mls/hr IV BOLUS ONE Stop: 01/07/21 11:34 Last Admin: 01/07/21 10:53 Dose: 1,000 mls/hr Documented by: DONNELL Ketorolac Tromethamine (Ketorolac 30 Mg/Ml Vial) 30 mg IV NOW ONE Stop: 01/07/21 10:42 Last Admin: 01/07/21 10:53 Dose: 30 mg Documented by: CTRLINK Ondansetron HCl (Ondansetron 4 Mg/2 Ml Inj) 4 mg IV NOW ONE Stop: 01/07/21 10:36 Last Admin: 01/07/21 10:53 Dose: 4 mg Documented by: DONNELL Vital Signs Vital signs: Vital Signs - 8 hr 01/07/21 10:39 Temperature 97.5 F L Pulse Rate 74 Respiratory Rate 22 Blood Pressure 122/62 Pulse Oximetry 96 Medical Decision Making Lab Data Lab results reviewed: Yes I reviewed the patient's lab results. Result diagrams: 01/07/21 10:50 01/07/21 10:50 Labs: Lab Results 01/07/21 01/07/21 Range/Units 10:50 10:50 WBC 11.1 H (4.5-11.0) X10^3/uL RBC 4.51 (4.0-5.2) X10^6/uL Hgb 13.6 (12.0-16.0) g/dL Hct 40.2 (36-46) % MCV 89.1 (80-100) fL MCH 30.0 (26-34) PG MCHC 33.7 (30-36) % RDW 13.8 (11.6-14.8) % Plt Count 435 H (150-400) X10^3/uL Neut % (Auto) 75.5 H (50-75) % Lymph % (Auto) 12.6 L (25-40) % [place] % (Auto) 7.2 (3-14) % Eos % (Auto) 4.3 H (2-4) % Baso % (Auto) 0.4 (0-2) % Neut # (Auto) 8400 H (3029-1837) /uL Lymph # (Auto) 1400 (8665-3732) /uL [place] # (Auto) 800 (0-900) /uL Eos # (Auto) 500 H (0-450) /uL Baso # (Auto) 0 (0-100) /uL Sodium 139 (137-145) mmol/L Potassium 3.9 (3.4-5.1) mmol/L Chloride 106 (98-107) mmol/L Carbon Dioxide 28 (22-32) mmol/L BUN 10 (7-17) mg/dL Creatinine 0.65 (0.52-1.04) mg/dL Estimated GFR > 60.0 (>60) mL/min BUN/Creatinine Ratio 15.4 (6-22) Glucose 104 H (70-100) mg/dL Calcium 9.8 (8.4-10.2) mg/dL Total Bilirubin 0.4 (0.2-1.3) mg/dL AST 23 (14-36) IU/L ALT 20 (<35) IU/L Alkaline Phosphatase 87 (38-126) U/L Total Protein 7.7 (6.3-8.2) g/dL Albumin 4.4 (3.5-5.0) g/dL Globulin 3.3 (1.7-4.1) g/dL Albumin/Globulin Ratio 1.3 (1.0-2.8) Lipase 21 L (23-300) U/L Point of Care Testing Test Results Negative Urine Dip Bedside Urine Glucose Negative Bedside Urine Bilirubin - Negative Bedside Urine Ketone - Negative Urine Specific [place] 1.020 Bedside Urine Occult Blood +/- Bedside Urine pH 6.5 Bedside Urine Protein - Negative Bedside Urine Urobilinogen - Negative Bedside Urine Nitrite - Negative Bedside Urine Leukocytes - Negative Esterase Point of care testing: Point of Care Testing Test Results Negative Urine Dip Bedside Urine Glucose Negative Bedside Urine Bilirubin - Negative Bedside Urine Ketone - Negative Urine Specific [place] 1.020 Bedside Urine Occult Blood +/- Bedside Urine pH 6.5 Bedside Urine Protein - Negative Bedside Urine Urobilinogen - Negative Bedside Urine Nitrite - Negative Bedside Urine Leukocytes - Negative Esterase MDM Narrative Medical decision making narrative: No recent travel, no recent antibiotics, vital signs unremarkable, labs unremarkable, no indication for antibiotics currently I feel given her clinical presentation and her physical exam today that we should hold on any radiologic studies for now precautions and follow-up instructions. She expressed understanding and agreement. Discharge Plan Departure Patient Disposition: Home Clinical Impression: Abdominal pain, Diarrhea Instructions: DI for Abdominal Pain-Adult Activity Restrictions/Additional Instructions: Recommend that you increase your fluid intake by drinking small amounts over longer periods of time. The symptoms that you presented with today are most often self-limiting and should improve in the next couple days however if your symptoms worsen during this time review develop new symptoms you do need to return to the emergency department. Prescriptions: New ondansetron 4 mg tablet,disintegrating 4 mg PO Q8H PRN (Reason: nausea and vomiting) Qty: 10 RF: 0 No Action (DME) nebulizer Qty: 1 RF: 0 albuterol sulfate 2.5 mg /3 mL (0.083 %) solution for nebulization 2.5 mg INHALATION Q6-8H PRN (Reason: shortness of breath or wheezing) Qty: 15 RF: 0 thyroid (pork) [FROG OR [employer] Thyroid] 30 mg tablet 30 mg PO DAILY Qty: 60 RF: 0 thyroid (pork) [FROG OR [employer] F[employer]ER Thyroid] 120 mg tablet 120 mg PO DAILY Qty: 60 RF: 0 albuterol sulfate [Ventolin HFA] 90 mcg/actuation HFA aerosol inhaler 2 puff INHALATION QIDP PRN (Reason: shortness of breath or wheezing) Qty: 2 RF: 11 epinephrine 0.3 mg/0.3 mL auto-injector 0.3 mg IM Q5-15M PRN (Reason: anaphylaxis) Qty: 2 RF: 2 Flovent HFA 110 mcg/actuation HFA aerosol inhaler 2 puff inhalation BID Qty: 12 RF: 3 lorazepam 0.5 mg tablet 0.5 mg PO Q8H PRN (Reason: anxiety) Qty: 15 RF: 0 Referrals: Jaskaran Hadley ARNP [Primary Care Provider] -
[2021-01-07] MEDS: SODIUM CHLORIDE 0.9% 1,000 ML 1000 ML IV (10:53)
[2021-01-07] MEDS: KETOROLAC 30 MG/ML VIAL IV (10:53)
[2021-01-07] MEDS: ONDANSETRON 4 MG/2 ML INJ IV (10:53)
[2021-01-07 11:01] LABS: Add Manual Diff / Slide Review NO; Basophils Absolute Auto 0 /uL (0-100); Basophils Percent Auto 0.4 % (0-2); Eosinophils Absolute Auto 500 /uL (0-450); Eosinophils Percent Auto 4.3 % (2-4); Hematocrit 40.2 % (36-46); Hemoglobin 13.6 g/dL (12.0-16.0); Lymphocytes Absolute Auto 1400 /uL (1100-4500); Lymphocytes Percent Auto 12.6 % (25-40); Mean Corpuscular HGB Conc 33.7 % (30-36); Mean Corpuscular Volume 89.1 fL (80-100); Monocytes Absolute Auto 800 /uL (0-900); Monocytes Percent Auto 7.2 % (3-14); Neutrophils Absolute Auto 8400 /uL (1500-7000); Neutrophils Percent Auto 75.5 % (50-75); Platelet Count 435 X10^3/uL (150-400); Red Blood Cell Count 4.51 X10^6/uL (4.0-5.2); Red Cell Distribution Width 13.8 % (11.6-14.8); White Blood Cell Count 11.1 X10^3/uL (4.5-11.0)
[2021-01-07 11:13] LABS: Alanine Aminotransferase 20 IU/L (<35); Albumin 4.4 g/dL (3.5-5.0); Albumin Globulin Ratio 1.3 (1.0-2.8); Alkaline Phosphatase 87 U/L (38-126); Aspartate Aminotransferase 23 IU/L (14-36); BUN Creatinine Ratio 15.4 (6-22); Bilirubin Total 0.4 mg/dL (0.2-1.3); Blood Urea Nitrogen 10 mg/dL (7-17); Calcium 9.8 mg/dL (8.4-10.2); Carbon Dioxide 28 mmol/L (22-32); Chloride 106 mmol/L (98-107); Estimated Glomerular Filt Rate > 60.0 mL/min (>60); Globulin 3.3 g/dL (1.7-4.1); Glucose 104 mg/dL (70-100); HEMOLYSIS < 15 (0-50); Lipase 21 U/L (23-300); Potassium 3.9 mmol/L (3.4-5.1); Sodium 139 mmol/L (137-145); Total Protein 7.7 g/dL (6.3-8.2)
== END 2021-01-07 13:17 | disposition home or self-care (01) ==
PROVIDERS: Emergency Provider Emergency Medicine; PCP Registered Nurse Diabetes Educator
DX: R10.9 Unspecified abdominal pain (principal); R19.7 Diarrhea, unspecified
CPT/HCPCS: 36415; 80053; 81003; 81025; 83690; 85025; 96361; 96374; 96375; 99284; J1885; J2405

== ENCOUNTER 2021-03-08 18:06 | Emergency (ER) | payer OTHER, MEDICAID, SELFPAY ==
[2020-08-30 14:48] VITALS: BMI 31.8
[2021-03-08 18:31] VITALS: BP 144/79; PULSE 61; RESP 18; TEMP 36.6; O2SAT 95; BMI 29.8
--- NOTE | 2021-03-08 20:07 | ED.WOUNDLAC ---
HPI - Wound/Laceration General Chief Complaint: Wound/Laceration Stated Complaint: All over rash x3 days Time Seen by Provider: 03/08/21 20:07 Source: patient Mode of arrival: Ambulatory Limitations: no limitations History of Present Illness HPI narrative: 41F nonsmoker with history of asthma presents with her new and the chief complaint of a worsening rash on her arms and legs over the past few days. She is otherwise well and has no systemic complaints such as fever, chills, N/V/D, or trouble breathing. Her is here for the same. They recently celebrated their wedding and were at a rental house with an Air BNB. Others used the hot tub and are without this rash. Nobody else shared their bed. She denies pain and has some mild itching. She denies any new medications or foods. She has no neurologic complaints such as headache or confusion Related Data Previous Rx's Medication Instructions Recorded nebulizer #1 ea 07/15/19 epinephrine 0.3 mg/0.3 mL 0.3 mg (0.3 mL) IM Q5-15M PRN #2 12/15/19 injection, auto-injector each fluticasone propionate 110 2 puff INHALATION BID #12 g 07/21/20 mcg/actuation HFA aerosol inhaler (Flovent HFA) lorazepam 0.5 mg tablet 0.5 mg PO Q8H PRN #15 tab 07/21/20 albuterol sulfate 2.5 mg (3 mL) INHALATION Q6-8H PRN 11/14/20 #15 ml thyroid (pork) 120 mg tablet (STATISTICAL METHODS PROFESSOR 120 mg PO DAILY #60 tab 11/28/20 Thyroid) thyroid (pork) 30 mg tablet (STATISTICAL METHODS PROFESSOR 30 mg PO DAILY #60 tab 11/28/20 Thyroid) albuterol sulfate 90 mcg/actuation 2 puff INHALATION QIDP PRN #2 each 12/06/20 aerosol inhaler (Ventolin HFA) ondansetron 4 mg disintegrating 4 mg PO Q8H PRN #10 tab 01/07/21 tablet doxycycline hyclate 100 mg tablet 100 mg PO BID #20 tab 03/08/21 Allergies Allergy/AdvReac Type Severity Reaction Status Date / Time amoxicillin [AMOXICILLIN] Allergy Mild HIVES Verified 03/08/21 18:35 Penicillins [PENICILLINS] Allergy Unknown Verified 03/08/21 18:35 morphine [MORPHINE] AdvReac Mild HALLUCINATI Verified 03/08/21 18:35 ONS oxycodone [OXYCODONE] AdvReac Mild VOMITING Verified 03/08/21 18:35 Review of Systems Review of Systems Narrative: GENERAL: Denies chills, fatigue, malaise, fever, sweats. HEENT: Denies sinus pain, ear pain, sore throat, difficulty swallowing, dizziness. RESPIRATORY: Denies dyspnea, cough, wheezing, hemoptysis, sputum. CARDIOVASCULAR: Denies chest pain, palpitations, orthopnea, edema, GASTROINTESTINAL: Denies nausea, vomiting, abdominal pain, diarrhea, constipation, melena. : Denies dysuria, frequency, incontinence, hematuria, urinary retention. MUSCULOSKELETAL: denies weakness, joint pain, or bony pain SKIN: See HPI NEUROLOGIC: Denies weakness, headache, numbness, change in speech, confusion, seizures, incoordination. PSYCHIATRIC: No concerning psychosocial issues. 12 point review of systems is negative except for those stated above Patient History Medical History Abdominal pain Acquired hypothyroidism Allergic rhinitis (2008) Anaphylaxis Anemia (2004) Anorexia nervosa (1999) Anxiety (Unknown) Asthma (2004) Asthma exacerbation (~2003) Benign familial tremor (~2012) Bladder pain Blindness Carpal tunnel syndrome (2013) Chicken pox (1986) Chickenpox (1986) Chronic back pain (2014) Cyst of ovary Depression (Unknown) Fibroids (~2016) Headache (~2010) Hypothyroidism (2009) Migraines (2009) Mild persistent asthma Ovarian cyst (2001) Partial blindness (1981) Postprocedural hypothyroidism (~2009) Preventative health care PTSD (post-traumatic stress disorder) (2009) Shoulder pain (2013) Thyroid cancer (2009) Thyroid nodule (2000) UTI (urinary tract infection) Vertigo (2008) Surgical History Anesthesia complication History of thyroidectomy (2009) Hx of eye surgery (1984) Hx of removal of cyst (2013) Hx of tonsillectomy (2001) Status post delivery (2007) Family History Father Dementia Mental health problem Addiction Mother Diabetes mellitus Heart attack Hypertension Uterine cancer Heart disease Grandfather Cancer Heart disease Hypertension Hyperlipidemia Stroke Pancreatic cancer Lung cancer Grandmother Diabetes mellitus Hypertension Mental health problem Blood infection Heart disease Grandfather Heart disease Stroke Cancer Grandmother Diabetes mellitus Social History household members: significant other and children Smoking Status: Never smoker alcohol intake: current substance use type: does not use Smoking Status: Never smoker alcohol intake frequency: 0-2 drinks per day Substance Use Type: does not use Exam Narrative Exam Narrative: GEN: AOx3 and in mild distress EYES: Pupils are equal, round, and reactive to light and accommodation. Extraoccular muscles are intact bilaterally. There is no subconjunctival hemorrhage or exudate. CHEST: Lungs are clear to auscultation bilaterally and free of wheezes, rales, or rhonchi. Heart rate is regular rhythm, there are no murmurs, clicks, rubs, or gallops. There is no chest wall tenderness. ABD: Abdomen is soft and nontender. There is no guarding or rebound. Bowel sounds are normal in all 4 quadrants. There is no mass or organomegaly. EXT: Full painless ROM of all extremities with no loss of sensation or strength. SKIN: Multiple small, circular red, slightly raised lesions (sub centimeter). No pustules, or lymphangitis. Otherwise, warm, pink, and dry. No erythema or rash Initial Vital Signs Initial Vital Signs: Vital Signs Temperature 97.9 F 03/08/21 18:31 Pulse Rate 61 03/08/21 18:31 Respiratory Rate 18 03/08/21 18:31 Blood Pressure 144/79 H 03/08/21 18:31 Pulse Oximetry 95 03/08/21 18:31 Course Orders Ordered: Discontinued Medications Doxycycline Hyclate (Doxycycline Hyclate 100 Mg Tablet) 100 mg PO NOW ONE Stop: 03/08/21 20:16 Last Admin: 03/08/21 20:23 Dose: 100 mg Documented by: SHAZIA Vital Signs Vital signs: Vital Signs - 8 hr 03/08/21 18:31 03/08/21 20:37 Temperature 97.9 F Pulse Rate 61 59 L Respiratory Rate 18 16 Blood Pressure 144/79 H 127/71 Pulse Oximetry 95 97 MDM - Wound/Laceration MDM Narrative Medical decision making narrative: Patient with very reassuring history and physical exam. No systemic findings. Folliculitis considered given use of hot tub. These lesions are wide spread and not organized in any linear fashion. They are few in number bites, including bed bugs considered. Return precautions discussed and questions answered to their apparent satisfaction. Discharge Plan Departure Patient Disposition: Home Clinical Impression: Hot tub folliculitis Instructions: DI for Folliculitis Activity Restrictions/Additional Instructions: *You have been diagnosed with [hot tub folliculitis] *What to do: *Please continue to take your regular medications as directed. [x ] New medication prescriptions sent to your pharmacy: [[facility] in [place]] [ ] New medication written as a paper prescription [ ] No new medications given *Please follow up with your primary care provider in 2-3 days, call for an appointment. Let them know you were seen in the Emergency Department and that we ask that you be seen in follow up. We will electronically transmit a record of today's note if your PCP is in our system *If you do not have a primary care provider please contact the [facility] Resource line at [phone]. They will ask some questions about your medical history and help get you set up with a doctor in the community. *Return to Emergency Department if you should have any new, worsening or concerning symptoms, such as [fever greater than 101 F, shaking chills, worsening pain, persistent vomiting or other bothersome symptoms] Prescriptions: New doxycycline hyclate 100 mg tablet 100 mg PO BID Qty: 20 0RF No Action (DME) nebulizer Qty: 1 0RF Rx Instructions: Use nebulizer as directed. albuterol sulfate 2.5 mg /3 mL (0.083 %) solution for nebulization 2.5 mg INHALATION Q6-8H PRN (Reason: shortness of breath or wheezing) Qty: 15 0RF thyroid (pork) [STATISTICAL METHODS PROFESSOR Thyroid] 30 mg tablet 30 mg PO DAILY Qty: 60 0RF Rx Instructions: Take a total dose of 150 mg daily thyroid (pork) [STATISTICAL METHODS PROFESSOR Thyroid] 120 mg tablet 120 mg PO DAILY Qty: 60 0RF Rx Instructions: Take a total dose of 150 mg daily albuterol sulfate [Ventolin HFA] 90 mcg/actuation HFA aerosol inhaler 2 puff INHALATION QIDP PRN (Reason: shortness of breath or wheezing) Qty: 2 11RF epinephrine 0.3 mg/0.3 mL auto-injector 0.3 mg IM Q5-15M PRN (Reason: anaphylaxis) Qty: 2 2RF Rx Instructions: do not exceed 3 doses per episode Flovent HFA 110 mcg/actuation HFA aerosol inhaler 2 puff inhalation BID Qty: 12 3RF lorazepam 0.5 mg tablet 0.5 mg PO Q8H PRN (Reason: anxiety) Qty: 15 0RF ondansetron 4 mg tablet,disintegrating 4 mg PO Q8H PRN (Reason: nausea and vomiting) Qty: 10 0RF Referrals: Jaskaran Hadley ARNP [Primary Care Provider] -
--- NOTE | 2021-03-08 20:14 | PC.NURSE ---
Red bumps on LFA, right groin, buttocks. Denies itchy/or pain. Started two days after coming home from staying at lodge/using hot tub. Partner with same.
[2021-03-08] MEDS: DOXYCYCLINE HYCLATE 100 MG TABLET PO (20:23)
[2021-03-08 20:37] VITALS: BP 127/71; PULSE 59; RESP 16; O2SAT 97
== END 2021-03-08 20:43 | disposition home or self-care (01) ==
PROVIDERS: Emergency Provider Emergency Medicine; PCP Registered Nurse Diabetes Educator
DX: L73.8 Other specified follicular disorders (principal)
CPT/HCPCS: 99283

== ENCOUNTER → 2021-05-06 13:28 | Outpatient (CLI) | payer OTHER, MEDICAID, SELFPAY ==
[2020-08-30 14:48] VITALS: BMI 31.8
[2021-05-06 14:40] LABS: COVID19 -Nasal RAPID POSITIVE (Negative)
== END ==
PROVIDERS: PCP Registered Nurse Diabetes Educator; Visit Provider Nurse Practitioner Family
DX: U07.1 COVID-19 (principal); Z20.822 Contact with and (suspected) exposure to COVID-19
CPT/HCPCS: 87635

== ENCOUNTER 2021-05-26 17:15 | Emergency (ER) | payer OTHER, MEDICAID, SELFPAY ==
[2020-08-30 14:48] VITALS: BMI 31.8
[2021-05-26] VITALS (10 sets, daily range): BP systolic 105–142; BP diastolic 67–84; PULSE 51–74; RESP 18; TEMP 36.8; O2SAT 97–100; BMI 31.8
--- NOTE | 2021-05-26 20:27 | ED.HA ---
HPI - Headache General Chief Complaint: Headache Stated Complaint: WEIR HEAD PAIN Time Seen by Provider: 05/26/21 20:26 Mode of arrival: Ambulatory History of Present Illness HPI Narrative: Patient is a 41-year-old female history of thyroid cancer with thyroidectomy presenting today with headache. She says yesterday she was at work she was in front of a computer she got a little dizzy lightheaded she and her went on room an to get away to a hotel where she was relaxing. She did not have any massages or work done on her neck. She does have some irritable bowel her last night she had some issues today however she has noticed whenever she passes gas coughs she has intense right-sided pain. It is only there with pressure changes but him proves immediately. She says it is sharp and stabbing he. It is not long lasting she does not need medication for. She has no blurry vision double vision. She has no numbness tingling or weakness. She has never had anything like this before. Related Data Previous Rx's Medication Instructions Recorded nebulizer #1 ea 07/15/19 epinephrine 0.3 mg/0.3 mL 0.3 mg (0.3 mL) IM Q5-15M PRN #2 12/15/19 injection, auto-injector each lorazepam 0.5 mg tablet 0.5 mg PO Q8H PRN #15 tab 07/21/20 thyroid (pork) 120 mg tablet (SENIOR ETL DEVELOPER 120 mg PO DAILY #60 tab 11/28/20 Thyroid) thyroid (pork) 30 mg tablet (SENIOR ETL DEVELOPER 30 mg PO DAILY #60 tab 11/28/20 Thyroid) ondansetron 4 mg disintegrating 4 mg PO Q8H PRN #10 tab 01/07/21 tablet albuterol sulfate 2.5 mg (3 mL) INHALATION Q6-8H PRN 03/21/21 #15 ml albuterol sulfate 90 mcg/actuation 2 puff INHALATION Q4H PRN #25.5 g 04/26/21 aerosol inhaler NS cyclobenzaprine 10 mg tablet 10 mg PO BEDTIME PRN #10 tab 04/26/21 fluticasone 500 mcg-salmeterol 50 1 inh INHALATION Q12H #180 ea 04/26/21 mcg/dose blistr powdr for inhalation (Advair Diskus) montelukast 10 mg tablet 10 mg PO BEDTIME #90 tab 04/26/21 (Singulair) Allergies Allergy/AdvReac Type Severity Reaction Status Date / Time amoxicillin [AMOXICILLIN] Allergy Mild HIVES Verified 04/26/21 15:57 Penicillins [PENICILLINS] Allergy Unknown Verified 04/26/21 15:57 morphine [MORPHINE] AdvReac Mild HALLUCINATI Verified 04/26/21 15:57 ONS oxycodone [OXYCODONE] AdvReac Mild VOMITING Verified 04/26/21 15:57 Review of Systems Review of Systems Narrative: GENERAL: Denies chills, fatigue, malaise, fever, sweats, travel HEENT: Denies sinus pain, ear pain, sore throat, difficulty swallowing, neck pain RESPIRATORY: Denies dyspnea, cough, wheezing, hemoptysis, sputum. CARDIOVASCULAR: Denies chest pain, palpitations, orthopnea, edema GASTROINTESTINAL: Denies nausea, vomiting, abdominal pain, diarrhea, constipation, melena. : Denies dysuria, frequency, incontinence, hematuria, urinary retention, flank pain. MUSCULOSKELETAL: Denies weakness, joint pain, or bony pain SKIN: No rash, no erythema, no pruritus NEUROLOGIC: See HPI PSYCHIATRIC: No concerning psychosocial issues. 12 point review of systems is negative except for those stated above and HPI Patient History Medical History Abdominal pain Acquired hypothyroidism Allergic rhinitis (2008) Anaphylaxis Anemia (2004) Anorexia nervosa (1999) Anxiety (Unknown) Asthma (2004) Asthma exacerbation (~2003) Benign familial tremor (~2012) Bladder pain Blindness Carpal tunnel syndrome (2013) Chicken pox (1986) Chickenpox (1986) Chronic back pain (2014) Cyst of ovary Depression (Unknown) Fibroids (~2016) Headache (~2010) Hypothyroidism (2009) Migraines (2010) Mild persistent asthma Moderate persistent asthma Ovarian cyst (2001) Partial blindness (1981) Postprocedural hypothyroidism (~2009) Preventative health care PTSD (post-traumatic stress disorder) (2009) Shoulder pain (2013) Thyroid cancer (2009) Thyroid nodule (2000) UTI (urinary tract infection) Vertigo (2008) Surgical History Anesthesia complication History of thyroidectomy (2009) Hx of eye surgery (1984) Hx of removal of cyst (2013) Hx of tonsillectomy (2001) Status post delivery (2007) Family History Father Dementia Mental health problem Addiction Mother Diabetes mellitus Heart attack Hypertension Uterine cancer Heart disease Grandfather Cancer Heart disease Hypertension Hyperlipidemia Stroke Pancreatic cancer Lung cancer Grandmother Diabetes mellitus Hypertension Mental health problem Blood infection Heart disease Grandfather Heart disease Stroke Cancer Grandmother Diabetes mellitus Social History household members: significant other and children Smoking Status: Never smoker alcohol intake: current substance use type: does not use Smoking Status: Never smoker alcohol intake frequency: 0-2 drinks per day Substance Use Type: does not use Exam Initial Vital Signs Initial Vital Signs: Vital Signs Temperature 98.3 F 05/26/21 17:50 Pulse Rate 74 05/26/21 17:50 Respiratory Rate 18 05/26/21 17:50 Blood Pressure 121/67 05/26/21 17:50 Pulse Oximetry 98 05/26/21 17:50 GENERAL: Well-appearing, well-nourished and in no acute distress. HEENT: Head atraumatic, nontender over temporal arteries with palpation, pupils reactive, face symmetric, moist mucous membranes, when she brings knees to chin and bend chin she has reproducible pain that goes up the right side. When she changes position it resolved CARDIOVASCULAR: Regular rate and rhythm without murmurs, rubs or gallops. RESPIRATORY: Breath sounds equal bilaterally, no wheezes rales or rhonchi. ABDOMEN: Soft, nontender. Normoactive bowel sounds all 4 quadrants. No guarding or rebound. EXTREMITIES: Normal range of motion, no clubbing or edema. Neurovascularly intact NEUROLOGICAL: Alert and oriented x4.Normal gait and speech. Cranial nerves II through XII grossly intact. Good [id number], good [id number], strength equal bilaterally, no dysarthria or aphasia, sensation in tact to soft touch bilaterally, no visual changes, no facial droop SKIN: Warm, dry, no laceration, no petechiae, no rashes or lesions. Scores NIH Stroke Scale Level of Conciousness: Alert, keenly responsive Ask month/age: Answers both questions correctly. Open/close eyes, close hand: Performs both tasks correctly Best gaze horizontal: Normal Visual navarro: No visual loss Facial palsy: Normal symetrical movement Left arm drift: No drift for full 10 sec Right arm drift: No drift for full 10 sec Left leg drift: No drift for full 5 sec Right leg drift: No drift for full 5 sec Limb ataxia: Absent Sensory on face/arms/legs: Normal, no sensory loss Best language: No aphasia, normal Dysarthria: Normal Extinction or inattention: No abnormality Total NIH Stroke scale score: 0 Course Orders Ordered: ED Orders 05/26/21 20:36 CT head/brain wo con Stat 05/26/21 20:55 CBC Auto Diff [Complete Blood Count AUTO DIFF] Stat CMP [Comprehensive Metabolic Panel] Stat CRP [C-Reactive Protein Quant] Stat ESR [Erythrocyte Sedimentation Rate] Stat Vital Signs Vital signs: Vital Signs - 8 hr 05/26/21 17:50 05/26/21 19:39 05/26/21 19:49 Temperature 98.3 F Pulse Rate 74 57 L 57 L Respiratory Rate 18 Blood Pressure 121/67 117/69 Pulse Oximetry 98 100 97 05/26/21 20:00 05/26/21 20:30 05/26/21 20:31 Temperature Pulse Rate 51 L 56 L 62 Respiratory Rate Blood Pressure 112/67 105/77 Pulse Oximetry 98 98 99 05/26/21 21:00 05/26/21 21:01 05/26/21 21:30 Temperature Pulse Rate 62 61 56 L Respiratory Rate Blood Pressure 142/84 H Pulse Oximetry 98 98 99 05/26/21 21:31 Temperature Pulse Rate 59 L Respiratory Rate Blood Pressure 122/68 Pulse Oximetry 99 MDM - Headache Lab Data Result diagrams: 05/26/21 20:55 05/26/21 20:55 Labs: Lab Results 05/26/21 05/26/21 05/26/21 Range/Units 20:55 20:55 20:55 WBC 9.8 (4.5-11.0) X10^3/uL RBC 4.27 (4.0-5.2) X10^6/uL Hgb 12.8 (12.0-16.0) g/dL Hct 37.9 (36-46) % MCV 88.7 (80-100) fL MCH 30.1 (26-34) PG MCHC 33.9 (30-36) % RDW 14.1 (11.6-14.8) % Plt Count 402 H (150-400) X10^3/uL Neut % (Auto) 59.1 (50-75) % Lymph % (Auto) 30.7 (25-40) % Kings[place] % (Auto) 6.3 (3-14) % Eos % (Auto) 3.4 (2-4) % Baso % (Auto) 0.5 (0-2) % Neut # (Auto) 5800 (9173-7133) /uL Lymph # (Auto) 3000 (8723-2738) /uL [place] # (Auto) 600 (0-900) /uL Eos # (Auto) 300 (0-450) /uL Baso # (Auto) 0 (0-100) /uL ESR 16 (0-20) MM/HR Sodium 141 (137-145) mmol/L Potassium 3.9 (3.4-5.1) mmol/L Chloride 107 (98-107) mmol/L Carbon Dioxide 26 (22-32) mmol/L BUN 12 (7-17) mg/dL Creatinine 0.84 (0.52-1.04) mg/dL Estimated GFR > 60.0 (>60) mL/min BUN/Creatinine Ratio 14.3 (6-22) Glucose 94 (70-100) mg/dL Calcium 9.0 (8.4-10.2) mg/dL Total Bilirubin 0.4 (0.2-1.3) mg/dL AST 22 (14-36) IU/L ALT 15 (<35) IU/L Alkaline Phosphatase 81 (38-126) U/L C-Reactive Protein (<1.0) mg/dL Total Protein 7.8 (6.3-8.2) g/dL Albumin 4.4 (3.5-5.0) g/dL Globulin 3.4 (1.7-4.1) g/dL Albumin/Globulin Ratio 1.3 (1.0-2.8) 05/26/21 Range/Units 20:55 WBC (4.5-11.0) X10^3/uL RBC (4.0-5.2) X10^6/uL Hgb (12.0-16.0) g/dL Hct (36-46) % MCV (80-100) fL MCH (26-34) PG MCHC (30-36) % RDW (11.6-14.8) % Plt Count (150-400) X10^3/uL Neut % (Auto) (50-75) % Lymph % (Auto) (25-40) % [place] % (Auto) (3-14) % Eos % (Auto) (2-4) % Baso % (Auto) (0-2) % Neut # (Auto) (4740-6441) /uL Lymph # (Auto) (6370-5679) /uL [place] # (Auto) (0-900) /uL Eos # (Auto) (0-450) /uL Baso # (Auto) (0-100) /uL ESR (0-20) MM/HR Sodium (137-145) mmol/L Potassium (3.4-5.1) mmol/L Chloride (98-107) mmol/L Carbon Dioxide (22-32) mmol/L BUN (7-17) mg/dL Creatinine (0.52-1.04) mg/dL Estimated GFR (>60) mL/min BUN/Creatinine Ratio (6-22) Glucose (70-100) mg/dL Calcium (8.4-10.2) mg/dL Total Bilirubin (0.2-1.3) mg/dL AST (14-36) IU/L ALT (<35) IU/L Alkaline Phosphatase (38-126) U/L C-Reactive Protein 1.4 H (<1.0) mg/dL Total Protein (6.3-8.2) g/dL Albumin (3.5-5.0) g/dL Globulin (1.7-4.1) g/dL Albumin/Globulin Ratio (1.0-2.8) Point of Care Testing Test Results Negative Urine Dip Bedside Urine Glucose Negative Bedside Urine Bilirubin - Negative Bedside Urine Ketone - Negative Urine Specific Castaner 1.025 Bedside Urine Occult Blood - Negative Bedside Urine pH 6.0 Bedside Urine Protein - Negative Bedside Urine Urobilinogen - Negative Bedside Urine Nitrite - Negative Bedside Urine Leukocytes - Negative Esterase Imaging Data CT scan - head: Radiologist's Impression: PROCEDURE:? CT HEAD/BRAIN WO CON ? INDICATIONS:? right sided headache ? TECHNIQUE:? Noncontrast 4.5 mm thick angled axial sections acquired from the foramen magnum to the vertex, with coronal and sagittal reformats.? For radiation dose reduction, the following was used:? automated exposure control, adjustment of mA and/or kV according to patient size.? ? COMPARISON:? [facility], CT, CT HEAD/BRAIN WO CON, 11/30/2017, 15:10. ? FINDINGS:? Image quality:? Excellent.? ? CSF spaces:? Basal cisterns are patent.? No extra-axial fluid collections.? Ventricles are normal in size and shape.? ? Brain:? No midline shift.? No intracranial masses or hemorrhage.? Cronin-white matter interface is normal.? ? Skull and face:? Calvarium and visualized facial bones are intact, without suspicious lesions.? ? Sinuses:? Visualized sinuses and mastoids are clear.? ? IMPRESSION:? ? 1. No acute intracranial process. ? ? Dictated by: Cassandra Viramontes M.D. on 05/26/2021 at 21:15 ? ? MDM Narrative Medical decision making narrative: The patient symptoms seem to be worsened position increasing pressure. When she does move she does not have any pain. CRP mildly elevated at 1.4 ESR is not elevated she is not tender over temporal arteries at this time do not think temporal arteritis. She overall appears well head CT is negative. She is afebrile symptoms not quite consistent with a meningitis. At this time recommend increasing fluids Tylenol ibuprofen as needed conservative treatment and returning if needed. Discharge Plan Departure Patient Disposition: Home Clinical Impression: Headache Instructions: DI for Headache Activity Restrictions/Additional Instructions: *You have been diagnosed with headache *What to do: At this time scan and blood work are overall reassuring. Recommend increasing fluid intake, resting *Continue to take medications as directed Ibuprofen 600 mg every 6 hours as needed for [id number] pain *Follow up with your primary care provider in 2-3 days or call [phone] *Return to ER if you should have increasing pain numbness, tingling, weakness, worsening headache or any new, worsening or concerning symptoms Prescriptions: No Action (DME) nebulizer Qty: 1 0RF Rx Instructions: Use nebulizer as directed. thyroid (pork) [SENIOR ETL DEVELOPER Thyroid] 30 mg tablet 30 mg PO DAILY Qty: 60 0RF Rx Instructions: Take a total dose of 150 mg daily thyroid (pork) [SENIOR ETL DEVELOPER Thyroid] 120 mg tablet 120 mg PO DAILY Qty: 60 0RF Rx Instructions: Take a total dose of 150 mg daily epinephrine 0.3 mg/0.3 mL auto-injector 0.3 mg IM Q5-15M PRN (Reason: anaphylaxis) Qty: 2 2RF Rx Instructions: do not exceed 3 doses per episode lorazepam 0.5 mg tablet 0.5 mg PO Q8H PRN (Reason: anxiety) Qty: 15 0RF albuterol sulfate 2.5 mg /3 mL (0.083 %) solution for nebulization 2.5 mg INHALATION Q6-8H PRN (Reason: shortness of breath or wheezing) Qty: 15 0RF fluticasone propion-salmeterol [Advair Diskus] 500-50 mcg/dose blister with device 1 inh inhalation Q12H Qty: 180 3RF montelukast [Singulair] 10 mg tablet 10 mg PO BEDTIME Qty: 90 3RF albuterol sulfate 90 mcg/actuation HFA aerosol inhaler 2 puff INHALATION Q4H PRN (Reason: shortness of breath or wheezing) Qty: 25.5 11RF Rx Instructions: MUST BE [employer]EV[employer] cyclobenzaprine 10 mg tablet 10 mg PO BEDTIME PRN (Reason: muscle spasm) Qty: 10 2RF ondansetron 4 mg tablet,disintegrating 4 mg PO Q8H PRN (Reason: nausea and vomiting) Qty: 10 0RF Referrals: Jaskaran Hadley ARNP [Primary Care Provider] -
--- NOTE | 2021-05-26 20:36 | DI.CT.S_ITS ---
PROCEDURE: CT HEAD/BRAIN WO CON INDICATIONS: right sided headache TECHNIQUE: Noncontrast 4.5 mm thick angled axial sections acquired from the foramen magnum to the vertex, with coronal and sagittal reformats. For radiation dose reduction, the following was used: automated exposure control, adjustment of mA and/or kV according to patient size. COMPARISON: [facility], CT, CT HEAD/BRAIN WO CON, 11/30/2017, 15:10. FINDINGS: Image quality: Excellent. CSF spaces: Basal cisterns are patent. No extra-axial fluid collections. Ventricles are normal in size and shape. Brain: No midline shift. No intracranial masses or hemorrhage. Cronin-white matter interface is normal. Skull and face: Calvarium and visualized facial bones are intact, without suspicious lesions. Sinuses: Visualized sinuses and mastoids are clear. IMPRESSION: 1. No acute intracranial process. Dictated by: Cassandra Viramontes M.D. on 05/26/2021 at 21:15 Approved by: Cassandra Viramontes M.D. on 05/26/2021 at 21:16
[2021-05-26 21:19] LABS: Add Manual Diff / Slide Review NO; Basophils Absolute Auto 0 /uL (0-100); Basophils Percent Auto 0.5 % (0-2); Eosinophils Absolute Auto 300 /uL (0-450); Eosinophils Percent Auto 3.4 % (2-4); Hematocrit 37.9 % (36-46); Hemoglobin 12.8 g/dL (12.0-16.0); Lymphocytes Absolute Auto 3000 /uL (1100-4500); Lymphocytes Percent Auto 30.7 % (25-40); Mean Corpuscular HGB Conc 33.9 % (30-36); Mean Corpuscular Hemoglobin 30.1 PG (26-34); Mean Corpuscular Volume 88.7 fL (80-100); Monocytes Absolute Auto 600 /uL (0-900); Monocytes Percent Auto 6.3 % (3-14); Neutrophils Absolute Auto 5800 /uL (1500-7000); Neutrophils Percent Auto 59.1 % (50-75); Platelet Count 402 X10^3/uL (150-400); Red Blood Cell Count 4.27 X10^6/uL (4.0-5.2); Red Cell Distribution Width 14.1 % (11.6-14.8); White Blood Cell Count 9.8 X10^3/uL (4.5-11.0)
[2021-05-26 21:31] LABS: Alanine Aminotransferase 15 IU/L (<35); Albumin 4.4 g/dL (3.5-5.0); Albumin Globulin Ratio 1.3 (1.0-2.8); Alkaline Phosphatase 81 U/L (38-126); Aspartate Aminotransferase 22 IU/L (14-36); BUN Creatinine Ratio 14.3 (6-22); Bilirubin Total 0.4 mg/dL (0.2-1.3); Blood Urea Nitrogen 12 mg/dL (7-17); Carbon Dioxide 26 mmol/L (22-32); Chloride 107 mmol/L (98-107); Estimated Glomerular Filt Rate > 60.0 mL/min (>60); Globulin 3.4 g/dL (1.7-4.1); Glucose 94 mg/dL (70-100); HEMOLYSIS < 15 (0-50); Potassium 3.9 mmol/L (3.4-5.1); Sodium 141 mmol/L (137-145); Total Protein 7.8 g/dL (6.3-8.2)
[2021-05-26 21:35] LABS: C-Reactive Protein Quant 1.4 mg/dL (<1.0)
[2021-05-26 21:48] LABS: Erythrocyte Sedimentation Rate 16 MM/HR (0-20)
== END 2021-05-26 22:15 | disposition home or self-care (01) ==
PROVIDERS: Emergency Provider Emergency Medicine; PCP Registered Nurse Diabetes Educator
DX: R51.9 Headache, unspecified (principal)
CPT/HCPCS: 36415; 70450; 80053; 81003; 81025; 85025; 85651; 86140; 99283; 99284

== ENCOUNTER 2021-05-28 16:54 | Emergency (ER) | payer OTHER, MEDICAID, SELFPAY ==
[2020-08-30 14:48] VITALS: BMI 31.8
[2021-05-28] VITALS (7 sets, daily range): BP systolic 110–131; BP diastolic 57–86; PULSE 49–70; RESP 18–22; TEMP 36.5; O2SAT 94–100
--- NOTE | 2021-05-28 18:05 | ED_ITS ---
HPI - Headache <Juan Youngblood PA-C - Last Filed: 05/28/21 19:58> General Chief Complaint: Headache Stated Complaint: headache/dizzy Time Seen by Provider: 05/28/21 17:03 Mode of arrival: Ambulatory History of Present Illness HPI Narrative: Patient is a 41-year-old female presenting to the emergency department for evaluation headache, dizziness, and nausea. Was seen in the emergency department on 05/26/2021 for similar symptoms. Patient at that time had a slightly elevated ESR at 1.4, however remaining lab studies were within normal limits and CT of the head returned negative. She states that she came to the emergency department today due to blurring vision that began yesterday and increased dizziness and nausea which began today. She states that her headache is primarily behind her right eye and she notes the pain increases with any kind of increasing pressure, such as coughing or attempting to defecate. Patient denies fever, chills, chest pain, cough, shortness of breath, vomiting, diarrhea, abdominal pain, constipation, dysuria, hematuria, or any other concerning symptoms. No further concerns were voiced at this time. Related Data Previous Rx's Medication Instructions Recorded nebulizer #1 ea 07/15/19 epinephrine 0.3 mg/0.3 mL 0.3 mg (0.3 mL) IM Q5-15M PRN #2 12/15/19 injection, auto-injector each lorazepam 0.5 mg tablet 0.5 mg PO Q8H PRN #15 tab 07/21/20 thyroid (pork) 120 mg tablet (CONTROL PANEL OPERATOR CRUDE UNIT 120 mg PO DAILY #60 tab 11/28/20 Thyroid) thyroid (pork) 30 mg tablet (CONTROL PANEL OPERATOR CRUDE UNIT 30 mg PO DAILY #60 tab 11/28/20 Thyroid) ondansetron 4 mg disintegrating 4 mg PO Q8H PRN #10 tab 01/07/21 tablet albuterol sulfate 2.5 mg (3 mL) INHALATION Q6-8H PRN 03/21/21 #15 ml albuterol sulfate 90 mcg/actuation 2 puff INHALATION Q4H PRN #25.5 g 04/26/21 aerosol inhaler NS cyclobenzaprine 10 mg tablet 10 mg PO BEDTIME PRN #10 tab 04/26/21 fluticasone 500 mcg-salmeterol 50 1 inh INHALATION Q12H #180 ea 04/26/21 mcg/dose blistr powdr for inhalation (Advair Diskus) montelukast 10 mg tablet 10 mg PO BEDTIME #90 tab 04/26/21 (Singulair) Allergies Allergy/AdvReac Type Severity Reaction Status Date / Time amoxicillin [AMOXICILLIN] Allergy Mild HIVES Verified 04/26/21 15:57 Penicillins [PENICILLINS] Allergy Unknown Verified 04/26/21 15:57 morphine [MORPHINE] AdvReac Mild HALLUCINATI Verified 04/26/21 15:57 ONS oxycodone [OXYCODONE] AdvReac Mild VOMITING Verified 04/26/21 15:57 Review of Systems <Juan Youngblood PA-C - Last Filed: 05/28/21 19:58> Constitutional Constitutional: Denies chills, Denies fatigue, Denies fever(s), Denies frequent falls, Reports headache(s), Denies lethargy and Denies weakness Eyes Eyes: Reports blurry vision, Denies eye discharge, Denies loss of vision, Denies eye pain and Denies photophobia ENT Ears, Nose, Mouth, and Throat: Reports dizziness, Reports headache(s) and Denies neck pain Cardiovascular Cardiovascular: Denies chest pain, Denies irregular heart rhythm, Denies lightheadedness, Denies palpitations, Denies dyspnea, Denies dyspnea on exertion and Denies orthopnea Respiratory Respiratory: Denies cough, Denies dyspnea, Denies dyspnea on exertion and Denies wheezing Gastrointestinal Gastrointestinal: Denies abdominal pain, Denies change in bowel habits, Denies diarrhea, Reports nausea and Denies vomiting Genitourinary Genitourinary: Denies hematuria, Denies flank pain, Denies urinary incontinence and Denies urinary urgency Musculoskeletal Musculoskeletal: Denies back pain, Denies muscle weakness, Denies neck pain, Denies numbness and Denies tingling Integumentary/Breasts Skin/Breast: Denies pruritus, Denies erythema, Denies rash and Denies wounds Neurologic Neurologic: Denies behavioral changes, Denies confusion, Reports dizziness, Denies frequent falls, Reports headache(s), Denies loss of vision, Denies numbness, Denies tingling and Denies weakness Psychiatric Psychiatric: Denies behavioral changes and Denies confusion Endocrine Endocrine: Denies fatigue and Denies palpitations Allergic/Immunologic Allergic/Immunologic: Denies wheezing Patient History <Juan Youngblood PA-C - Last Filed: 05/28/21 19:58> Medical History Abdominal pain Acquired hypothyroidism Allergic rhinitis (2008) Anaphylaxis Anemia (2004) Anorexia nervosa (1999) Anxiety (Unknown) Asthma (2004) Asthma exacerbation (~2003) Benign familial tremor (~2012) Bladder pain Blindness Carpal tunnel syndrome (2013) Chicken pox (1986) Chickenpox (1986) Chronic back pain (2014) Cyst of ovary Depression (Unknown) Fibroids (~2016) Headache (~2009) Hypothyroidism (2009) Migraines (2009) Mild persistent asthma Moderate persistent asthma Ovarian cyst (2001) Partial blindness (1981) Postprocedural hypothyroidism (~2009) Preventative health care PTSD (post-traumatic stress disorder) (2009) Shoulder pain (2013) Thyroid cancer (2009) Thyroid nodule (2000) UTI (urinary tract infection) Vertigo (2008) Surgical History Anesthesia complication History of thyroidectomy (2009) Hx of eye surgery (1984) Hx of removal of cyst (2013) Hx of tonsillectomy (2001) Status post delivery (2007) Family History Father Dementia Mental health problem Addiction Mother Diabetes mellitus Heart attack Hypertension Uterine cancer Heart disease Grandfather Cancer Heart disease Hypertension Hyperlipidemia Stroke Pancreatic cancer Lung cancer Grandmother Diabetes mellitus Hypertension Mental health problem Blood infection Heart disease Grandfather Heart disease Stroke Cancer Grandmother Diabetes mellitus Social History household members: significant other and children Smoking Status: Never smoker alcohol intake: current substance use type: does not use Smoking Status: Never smoker alcohol intake frequency: 0-2 drinks per day Substance Use Type: does not use Exam <Juan Youngblood PA-C - Last Filed: 05/28/21 19:58> Narrative Exam Narrative: GENERAL: 41 year old patient appears stated age. Well-developed patient, in no acute distress. HEAD: Atraumatic. Normocephalic. EYES: Pupils equal round and reactive. Extraocular motions intact. No scleral icterus. No injection or drainage. No pain with H in space test. ENT: Nose without bleeding, purulent drainage. Throat without erythema, tonsillar hypertrophy or exudate. Airway patent. NECK: Trachea midline. Non tender CARDIOVASCULAR: Regular rate and rhythm without murmurs, gallops, or rubs. RESPIRATORY: Clear to auscultation. Breath sounds equal bilaterally. No wheezes, rales, or rhonchi. GASTROINTESTINAL: Abdomen soft, non-tender, nondistended. EXTREMITIES: No edema or joint tenderness. BACK: Nontender without deformity or crepitance. No flank tenderness. NEURO: AOx3. SKIN: No rash or erythema of visible areas Initial Vital Signs Initial Vital Signs: Vital Signs Temperature 97.7 F 05/28/21 17:02 Pulse Rate 69 05/28/21 17:02 Respiratory Rate 22 05/28/21 17:02 Blood Pressure 131/86 05/28/21 17:02 Pulse Oximetry 98 05/28/21 17:02 <Suzanne Francois MD - Last Filed: 05/29/21 04:22> Initial Vital Signs Initial Vital Signs: Vital Signs Temperature 97.7 F 05/28/21 17:02 Pulse Rate 69 05/28/21 17:02 Respiratory Rate 22 05/28/21 17:02 Blood Pressure 131/86 05/28/21 17:02 Pulse Oximetry 98 05/28/21 17:02 Course <Juan Youngblood PA-C - Last Filed: 05/28/21 19:58> Course Course Narrative: CBC, CMP, ESR, CRP ordered. Reviewed CT results from 05/26/21. Orders Ordered: Discontinued Medications Meclizine HCl (Meclizine Hcl 12.5 Mg Tablet) 25 mg PO NOW ONE Stop: 05/28/21 18:30 Last Admin: 05/28/21 18:39 Dose: 25 mg Documented by: KRISTIN Ondansetron HCl (Ondansetron 4 Mg Odt) 4 mg SL NOW ONE Stop: 05/28/21 18:30 Last Admin: 05/28/21 18:39 Dose: 4 mg Documented by: KRISTIN Vital Signs Vital signs: Vital Signs - 8 hr 05/28/21 17:02 05/28/21 18:00 05/28/21 18:01 Temperature 97.7 F Pulse Rate 69 58 L 57 L Respiratory Rate 22 18 Blood Pressure 131/86 110/64 Pulse Oximetry 98 94 97 05/28/21 18:15 05/28/21 18:30 05/28/21 18:31 Temperature Pulse Rate 70 49 L 51 L Respiratory Rate Blood Pressure 125/61 111/57 L Pulse Oximetry 99 99 100 05/28/21 19:00 Temperature Pulse Rate 53 L Respiratory Rate 18 Blood Pressure 123/73 Pulse Oximetry 99 <Suzanne Francois MD - Last Filed: 05/29/21 04:22> Orders Ordered: Discontinued Medications Meclizine HCl (Meclizine Hcl 12.5 Mg Tablet) 25 mg PO NOW ONE Stop: 05/28/21 18:30 Last Admin: 05/28/21 18:39 Dose: 25 mg Documented by: KRISTIN Ondansetron HCl (Ondansetron 4 Mg Odt) 4 mg SL NOW ONE Stop: 05/28/21 18:30 Last Admin: 05/28/21 18:39 Dose: 4 mg Documented by: KRISTIN Vital Signs Vital signs: Vital Signs - 8 hr 05/28/21 17:02 05/28/21 18:00 05/28/21 18:01 Temperature 97.7 F Pulse Rate 69 58 L 57 L Respiratory Rate 22 18 Blood Pressure 131/86 110/64 Pulse Oximetry 98 94 97 05/28/21 18:15 05/28/21 18:30 05/28/21 18:31 Temperature Pulse Rate 70 49 L 51 L Respiratory Rate Blood Pressure 125/61 111/57 L Pulse Oximetry 99 99 100 05/28/21 19:00 Temperature Pulse Rate 53 L Respiratory Rate 18 Blood Pressure 123/73 Pulse Oximetry 99 MDM - Headache <Juan Youngblood PA-C - Last Filed: 05/28/21 19:58> Lab Data Result diagrams: 05/28/21 18:00 05/28/21 18:00 Labs: Lab Results 05/28/21 05/28/21 Range/Units 18:00 18:00 WBC 10.9 (4.5-11.0) X10^3/uL RBC 4.26 (4.0-5.2) X10^6/uL Hgb 13.0 (12.0-16.0) g/dL Hct 37.7 (36-46) % MCV 88.5 (80-100) fL MCH 30.4 (26-34) PG MCHC 34.4 (30-36) % RDW 14.0 (11.6-14.8) % Plt Count 394 (150-400) X10^3/uL Neut % (Auto) 69.0 (50-75) % Lymph % (Auto) 21.2 L (25-40) % [place] % (Auto) 5.9 (3-14) % Eos % (Auto) 3.4 (2-4) % Baso % (Auto) 0.5 (0-2) % Neut # (Auto) 7500 H (8940-6511) /uL Lymph # (Auto) 2300 (1606-4214) /uL [place] # (Auto) 600 (0-900) /uL Eos # (Auto) 400 (0-450) /uL Baso # (Auto) 100 (0-100) /uL ESR 19 (0-20) MM/HR Sodium 138 (137-145) mmol/L Potassium 3.8 (3.4-5.1) mmol/L Chloride 106 (98-107) mmol/L Carbon Dioxide 24 (22-32) mmol/L BUN 11 (7-17) mg/dL Creatinine 0.76 (0.52-1.04) mg/dL Estimated GFR > 60.0 (>60) mL/min BUN/Creatinine Ratio 14.5 (6-22) Glucose 96 (70-100) mg/dL Calcium 9.2 (8.4-10.2) mg/dL Total Bilirubin 0.3 (0.2-1.3) mg/dL AST 22 (14-36) IU/L ALT 14 (<35) IU/L Alkaline Phosphatase 102 (38-126) U/L C-Reactive Protein 0.8 (<1.0) mg/dL Total Protein 7.9 (6.3-8.2) g/dL Albumin 4.4 (3.5-5.0) g/dL Globulin 3.5 (1.7-4.1) g/dL Albumin/Globulin Ratio 1.3 (1.0-2.8) Urine Dip Bedside Urine Glucose Negative Bedside Urine Bilirubin - Negative Bedside Urine Ketone - Negative Urine Specific [place] 1.025 Bedside Urine Occult Blood - Negative Bedside Urine pH 6 Bedside Urine Protein - Negative Bedside Urine Urobilinogen - Negative Bedside Urine Nitrite - Negative Bedside Urine Leukocytes - Negative Esterase MDM Narrative Medical decision making narrative: To consider tension headache versus migraine headache versus cluster headache versus intracranial mass versus epidural hematoma versus subdural hematoma. Overall, physical examination, history, and lab studies returned reassuring. Discussed with patient results of lab studies and compared them to studies performed on her most recent visit on 05/26/2021. Additionally, reviewed CT results from her most recent visit and informed her that no acute abnormality was identified that would explain her symptoms. I urged the patient to follow- up with her primary care provider within the next 24-48 hours for further evaluation. Patient expresses understanding and agrees to plan. At this time patient states she feels comfortable being discharged home. Strict return precautions were discussed with the patient prior to discharge. Patient is stable and ready for discharge at this time. <Suzanne Francois MD - Last Filed: 05/29/21 04:22> Lab Data Labs: Lab Results 05/28/21 05/28/21 Range/Units 18:00 18:00 WBC 10.9 (4.5-11.0) X10^3/uL RBC 4.26 (4.0-5.2) X10^6/uL Hgb 13.0 (12.0-16.0) g/dL Hct 37.7 (36-46) % MCV 88.5 (80-100) fL MCH 30.4 (26-34) PG MCHC 34.4 (30-36) % RDW 14.0 (11.6-14.8) % Plt Count 394 (150-400) X10^3/uL Neut % (Auto) 69.0 (50-75) % Lymph % (Auto) 21.2 L (25-40) % [place] % (Auto) 5.9 (3-14) % Eos % (Auto) 3.4 (2-4) % Baso % (Auto) 0.5 (0-2) % Neut # (Auto) 7500 H (5438-4646) /uL Lymph # (Auto) 2300 (3289-9399) /uL [place] # (Auto) 600 (0-900) /uL Eos # (Auto) 400 (0-450) /uL Baso # (Auto) 100 (0-100) /uL ESR 19 (0-20) MM/HR Sodium 138 (137-145) mmol/L Potassium 3.8 (3.4-5.1) mmol/L Chloride 106 (98-107) mmol/L Carbon Dioxide 24 (22-32) mmol/L BUN 11 (7-17) mg/dL Creatinine 0.76 (0.52-1.04) mg/dL Estimated GFR > 60.0 (>60) mL/min BUN/Creatinine Ratio 14.5 (6-22) Glucose 96 (70-100) mg/dL Calcium 9.2 (8.4-10.2) mg/dL Total Bilirubin 0.3 (0.2-1.3) mg/dL AST 22 (14-36) IU/L ALT 14 (<35) IU/L Alkaline Phosphatase 102 (38-126) U/L C-Reactive Protein 0.8 (<1.0) mg/dL Total Protein 7.9 (6.3-8.2) g/dL Albumin 4.4 (3.5-5.0) g/dL Globulin 3.5 (1.7-4.1) g/dL Albumin/Globulin Ratio 1.3 (1.0-2.8) Urine Dip Bedside Urine Glucose Negative Bedside Urine Bilirubin - Negative Bedside Urine Ketone - Negative Urine Specific [place] 1.025 Bedside Urine Occult Blood - Negative Bedside Urine pH 6 Bedside Urine Protein - Negative Bedside Urine Urobilinogen - Negative Bedside Urine Nitrite - Negative Bedside Urine Leukocytes - Negative Esterase Discharge Plan Departure Patient Disposition: Home Clinical Impression: Headache Instructions: DI for Headache Activity Restrictions/Additional Instructions: *You have been diagnosed with headache *What to do: *Please continue to take your regular medications as directed. [ ] New medication prescriptions sent to your pharmacy: [ ] [ ] New medication written as a paper prescription [X] No new medications given Overall, physical examination and lab studies in the emergency department today returned reassuring. No acute abnormality was identified today that would require emergent intervention. Additionally, after reviewing the CT performed on 05/26/2021 and did not appear to show any acute abnormality that would exp andrea your symptoms. I recommend following up with the primary care provider within the next 24-48 hours to schedule an appointment for further evaluation. Do not hesitate to return to the emergency department if you experience worsening pain, worsening changes in vision, nausea/vomiting, behavior abnormalities, or any other concerning symptoms. *Please follow up with your primary care provider in 2-3 days, call for an appointment. Let them know you were seen in the Emergency Department and that we ask that you be seen in follow up. We will electronically transmit a record of today's note if your PCP is in our system *If you do not have a primary care provider please contact the [facility] Resource line at [phone]. They will ask some questions about your medical history and help get you set up with a doctor in the community. *Return to Emergency Department if you should have any new, worsening or concerning symptoms, such as [fever greater than 101 F, shaking chills, wor sening pain, persistent vomiting or other bothersome symptoms] Prescriptions: No Action (DME) nebulizer Qty: 1 0RF Rx Instructions: Use nebulizer as directed. thyroid (pork) [CONTROL PANEL OPERATOR CRUDE UNIT Thyroid] 30 mg tablet 30 mg PO DAILY Qty: 60 0RF Rx Instructions: Take a total dose of 150 mg daily thyroid (pork) [CONTROL PANEL OPERATOR CRUDE UNIT Thyroid] 120 mg tablet 120 mg PO DAILY Qty: 60 0RF Rx Instructions: Take a total dose of 150 mg daily epinephrine 0.3 mg/0.3 mL auto-injector 0.3 mg IM Q5-15M PRN (Reason: anaphylaxis) Qty: 2 2RF Rx Instructions: do not exceed 3 doses per episode lorazepam 0.5 mg tablet 0.5 mg PO Q8H PRN (Reason: anxiety) Qty: 15 0RF albuterol sulfate 2.5 mg /3 mL (0.083 %) solution for nebulization 2.5 mg INHALATION Q6-8H PRN (Reason: shortness of breath or wheezing) Qty: 15 0RF fluticasone propion-salmeterol [Advair Diskus] 500-50 mcg/dose blister with device 1 inh inhalation Q12H Qty: 180 3RF montelukast [Singulair] 10 mg tablet 10 mg PO BEDTIME Qty: 90 3RF albuterol sulfate 90 mcg/actuation HFA aerosol inhaler 2 puff INHALATION Q4H PRN (Reason: shortness of breath or wheezing) Qty: 25.5 11RF Rx Instructions: MUST BE [employer]EV[employer]AND cyclobenzaprine 10 mg tablet 10 mg PO BEDTIME PRN (Reason: muscle spasm) Qty: 10 2RF ondansetron 4 mg tablet,disintegrating 4 mg PO Q8H PRN (Reason: nausea and vomiting) Qty: 10 0RF Referrals: Jaskaran Hadley ARNP [Primary Care Provider] - <Suzanne Francois MD - Last Filed: 05/29/21 04:22> Cosign ED Attending Cosalfonsoature Attestation: I was immediately available in the department for consultation throughout this patient's visit. I agree with documentation as above. Suzanne Francois MD
[2021-05-28 18:11] LABS: Add Manual Diff / Slide Review NO; Basophils Absolute Auto 100 /uL (0-100); Basophils Percent Auto 0.5 % (0-2); Eosinophils Absolute Auto 400 /uL (0-450); Eosinophils Percent Auto 3.4 % (2-4); Hematocrit 37.7 % (36-46); Lymphocytes Absolute Auto 2300 /uL (1100-4500); Lymphocytes Percent Auto 21.2 % (25-40); Mean Corpuscular HGB Conc 34.4 % (30-36); Mean Corpuscular Hemoglobin 30.4 PG (26-34); Mean Corpuscular Volume 88.5 fL (80-100); Monocytes Absolute Auto 600 /uL (0-900); Monocytes Percent Auto 5.9 % (3-14); Neutrophils Absolute Auto 7500 /uL (1500-7000); Platelet Count 394 X10^3/uL (150-400); Red Blood Cell Count 4.26 X10^6/uL (4.0-5.2); White Blood Cell Count 10.9 X10^3/uL (4.5-11.0)
[2021-05-28 18:23] LABS: Alanine Aminotransferase 14 IU/L (<35); Albumin 4.4 g/dL (3.5-5.0); Albumin Globulin Ratio 1.3 (1.0-2.8); Alkaline Phosphatase 102 U/L (38-126); Aspartate Aminotransferase 22 IU/L (14-36); BUN Creatinine Ratio 14.5 (6-22); Bilirubin Total 0.3 mg/dL (0.2-1.3); Blood Urea Nitrogen 11 mg/dL (7-17); C-Reactive Protein Quant 0.8 mg/dL (<1.0); Calcium 9.2 mg/dL (8.4-10.2); Carbon Dioxide 24 mmol/L (22-32); Chloride 106 mmol/L (98-107); Estimated Glomerular Filt Rate > 60.0 mL/min (>60); Globulin 3.5 g/dL (1.7-4.1); Glucose 96 mg/dL (70-100); HEMOLYSIS < 15 (0-50); Potassium 3.8 mmol/L (3.4-5.1); Sodium 138 mmol/L (137-145); Total Protein 7.9 g/dL (6.3-8.2)
[2021-05-28 18:28] LABS: Erythrocyte Sedimentation Rate 19 MM/HR (0-20)
[2021-05-28] MEDS: MECLIZINE HCL 12.5 MG TABLET 25 MG PO (18:39)
[2021-05-28] MEDS: ONDANSETRON 4 MG ODT SL (18:39)
== END 2021-05-28 19:20 | disposition home or self-care (01) ==
PROVIDERS: Emergency Provider Physician Assistant; PCP Registered Nurse Diabetes Educator
DX: R51.9 Headache, unspecified (principal); R11.0 Nausea; R42 Dizziness and giddiness
CPT/HCPCS: 80053; 81003; 85025; 85651; 86140; 99283

== ENCOUNTER → 2021-06-20 12:26 | Outpatient (CLI) | payer OTHER, MEDICAID, SELFPAY ==
[2020-08-30 14:48] VITALS: BMI 31.8
[2021-06-20 15:48] LABS: Free T3, Triiodothyronine Free 3.05 pg/mL (2.77-5.27); Free T4, Direct Thyroxine 0.68 ng/dL (0.78-2.19)
[2021-06-20 16:02] LABS: Thyroid Stimulating Hormone 12.8 uIU/mL (0.47-4.68)
== END ==
PROVIDERS: PCP Registered Nurse Diabetes Educator; Referring Provider Registered Nurse Diabetes Educator; Visit Provider Registered Nurse Diabetes Educator
DX: E89.0 Postprocedural hypothyroidism (principal)
CPT/HCPCS: 36415; 84439; 84443; 84481

== ENCOUNTER → 2021-06-22 16:08 | Outpatient (CLI) | payer OTHER, MEDICAID, SELFPAY ==
[2020-08-30 14:48] VITALS: BMI 31.8
[2021-06-22 17:14] LABS: Vitamin D 25 Hydroxy (D3) 22.9 ng/mL (30.0-100.0)
[2021-06-23 21:13] LABS: Deamidated Gliadin Ab IgA 8 units (0-19); Deamidated Gliadin Ab IgG 4 units (0-19); Immunoglobulin A,Qn 258 mg/dL (87-352); t-Transglutaminase IgA <2 U/mL (0-3)
[2021-06-25 14:42] LABS: Almond IgE <0.10 kU/L (Class 0); Cashew Nut IgE <0.10 kU/L (Class 0); Codfish Allergy IgE < 0.10 kU/L (Class 0); Egg White IgE <0.10 kU/L (Class 0); Hazelnut IgE <0.10 kU/L (Class 0); Milk IgE 0.56 kU/L (Class II); Peanut IgE <0.10 kU/L (Class 0); Salmon Allergy IgE < 0.10 kU/L (Class 0); Scallop Allergy IgE < 0.10 kU/L (Class 0); Sesame seed Allergy IgE < 0.10 kU/L (Class 0); Shrimp IgE 0.23 kU/L (Class 0/I); Soybean IgE <0.10 kU/L (Class 0); Tuna Allergy IgE < 0.10 kU/L (Class 0); Walnut IgE <0.10 kU/L (Class 0); Wheat Allergy IgE < 0.10 kU/L (Class 0)
== END ==
PROVIDERS: PCP Registered Nurse Diabetes Educator; Referring Provider Registered Nurse Diabetes Educator; Visit Provider Registered Nurse Diabetes Educator
DX: K59.00 Constipation, unspecified (principal); R14.0 Abdominal distension (gaseous); R19.7 Diarrhea, unspecified; R53.83 Other fatigue
CPT/HCPCS: 36415; 82306; 82784; 83516; 86003

== ENCOUNTER → 2021-10-09 09:05 | Outpatient (CLI) | payer OTHER, MEDICAID, SELFPAY ==
[2020-08-30 14:48] VITALS: BMI 31.8
[2021-10-09 11:15] LABS: Free T3, Triiodothyronine Free 4.56 pg/mL (2.77-5.27); Free T4, Direct Thyroxine 0.63 ng/dL (0.78-2.19); Vitamin D 25 Hydroxy (D3) 25.4 ng/mL (30.0-100.0)
[2021-10-09 11:29] LABS: Thyroid Stimulating Hormone 16.6 uIU/mL (0.47-4.68)
== END ==
PROVIDERS: PCP Registered Nurse Diabetes Educator; Referring Provider Registered Nurse Diabetes Educator; Visit Provider Registered Nurse Diabetes Educator
DX: E89.0 Postprocedural hypothyroidism (principal); E55.9 Vitamin D deficiency, unspecified
CPT/HCPCS: 36415; 82306; 84439; 84443; 84481

== ENCOUNTER → 2021-11-14 16:22 | Outpatient (CLI) | payer OTHER, MEDICAID, SELFPAY ==
[2021-10-20 11:45] VITALS: BMI 31.8
[2021-11-14 17:58] LABS: Free T3, Triiodothyronine Free 3.86 pg/mL (2.77-5.27); Free T4, Direct Thyroxine 0.59 ng/dL (0.78-2.19)
[2021-11-14 18:12] LABS: Thyroid Stimulating Hormone 10.1 uIU/mL (0.47-4.68)
== END ==
PROVIDERS: PCP Registered Nurse Diabetes Educator; Referring Provider Registered Nurse Diabetes Educator; Visit Provider Registered Nurse Diabetes Educator
DX: E03.9 Hypothyroidism, unspecified (principal)
CPT/HCPCS: 36415; 84439; 84443; 84481

== ENCOUNTER → 2021-12-27 15:11 | Outpatient (CLI) | payer OTHER, MEDICAID, SELFPAY ==
[2021-10-20 11:45] VITALS: BMI 31.8
[2021-12-27 19:30] LABS: COVID19 -Nasal RAPID Negative (Negative)
== END ==
PROVIDERS: PCP Registered Nurse Diabetes Educator; Visit Provider Obstetrics & Gynecology
DX: Z01.812 Encounter for preprocedural laboratory examination (principal); Z20.822 Contact with and (suspected) exposure to COVID-19
CPT/HCPCS: 87635; C9803

== ENCOUNTER 2021-12-28 08:26 | Day surgery (SDC) | payer OTHER, MEDICAID, SELFPAY ==
[2021-10-20 11:45] VITALS: BMI 31.8
[2021-12-19 08:16] VITALS: BMI 32.9
[2021-12-28] VITALS (7 sets, daily range): BP systolic 115–150; BP diastolic 72–98; PULSE 56–100; RESP 12–16; TEMP 35.9–36.6; O2SAT 95–100; BMI 32.9
--- NOTE | 2021-12-28 | PATH_ITS ---
[facility] Accession Number: [id number] . 01 Material submitted: . endometrium - ENDOMETRIAL CURETTINGS . 01 Clinical history: . LAPAROSCOPY/D/C DYSMENORRHEA, UNSPECIFIED ENDOMETRIOSIS, UNSPECIFIED ABNORMAL UTERINE AND VAGINAL BLEEDING, UNSPECIFIED . 01 Diagnosis: Endometrium, Curettings: Secretory-type endometrium. No atypical hyperplasia and no malignancy identified. MRV 01/01/2022 1150 Local . 01 Electronically signed: . Carmen Velasquez MD, Pathologist NPI- [id number] . 01 Gross description: . ENDOMETRIAL CURETTINGS: Received in formalin are minute fragments of mucoid and hemorrhagic material measuring 1.8 x 1.5 x 0.2 cm in aggregate. Submitted in toto in 1 cassette. /CPE 12/30/2021 0757 Local . 01 Pathologist provided ICD-10: N94.6, N80.9, N93.9 . 01 CPT . 629684 Specimen Comment: A courtesy copy of this report has been sent to [phone] Performed at: 01 [facility] [address] [place] [address], [place], [place] [id number] MD Porter Moncada MD Phone: [phone]
[2021-12-28] MEDS: LACTATED RINGERS 1,000 ML 42 ML IV ×2 (09:30→11:45)
--- NOTE | 2021-12-28 10:43 | P.HP_ITS ---
History of Present Illness History of Present Illness Date Patient Seen: 12/28/21 Time Patient Seen: 10:43 Chief complaint: Laparoscopy/D&C Narrative: Patient is a 41-year-old 4 para 3 with dysmenorrhea, abnormal uterine bleeding, and bilateral uterosacral tenderness. She presents for a diagnostic laparoscopy with possible fulguration of endometriosis and a D&C hysteroscopy. Patient History Medical History Abdominal pain Acquired hypothyroidism Allergic rhinitis (2008) Anaphylaxis Anemia (2004) Anorexia nervosa (1999) Anxiety (Unknown) Asthma (2004) Asthma exacerbation (~2003) Benign familial tremor (~2012) Bladder pain Blindness Carpal tunnel syndrome (2013) Chicken pox (1986) Chickenpox (1986) Chronic back pain (2014) Cyst of ovary Depression (Unknown) Fibroids (~2015) Headache (~2009) Hypothyroidism (2008) Migraines (2009) Mild persistent asthma Moderate persistent asthma Ovarian cyst (2001) Partial blindness (1981) Postprocedural hypothyroidism (~2009) Preventative health care PTSD (post-traumatic stress disorder) (2009) Shoulder pain (2013) Thyroid cancer (2009) Thyroid nodule (2000) UTI (urinary tract infection) Vertigo (2008) Surgical History Anesthesia complication H/O right knee surgery History of thyroidectomy (2009) Hx of eye surgery (1984) Hx of removal of cyst (2013) Hx of tonsillectomy (2001) S/P wisdom tooth extraction Status post delivery (2007) Family & Social History Family History Father Dementia Mental health problem Addiction Mother Diabetes mellitus Heart attack Hypertension Uterine cancer Heart disease Grandfather Cancer Heart disease Hypertension Hyperlipidemia Stroke Pancreatic cancer Lung cancer Grandmother Diabetes mellitus Hypertension Mental health problem Blood infection Heart disease Grandfather Heart disease Stroke Cancer Grandmother Diabetes mellitus Social History: household members spouse,children Tobacco & Substance use: Smoking Status Never smoker alcohol intake current alcohol intake frequency 0-2 drinks per day Substance Use Type does not use Meds Home Medications and Allergies Home Medications Medication Instructions Recorded Confirmed Type nebulizer #1 ea 07/15/19 11/14/21 Rx epinephrine 0.3 mg/0.3 mL 0.3 mg (0.3 mL) IM Q5-15M PRN 12/15/19 12/28/21 Rx injection, auto-injector anaphylaxis #2 ea ondansetron 4 mg disintegrating 4 mg PO Q8H PRN nausea and 01/07/21 12/28/21 Rx tablet vomiting #10 tabs albuterol sulfate 90 mcg/actuation 2 puff inhalation Q4H PRN 04/26/21 12/28/21 Rx aerosol inhaler shortness of breath or wheezing #25.5 grams cyclobenzaprine 10 mg tablet 10 mg PO BEDTIME PRN muscle spasm 04/26/21 12/28/21 Rx #10 tabs fluticasone 500 mcg-salmeterol 50 1 inh inhalation Q12H #180 ea 04/26/21 12/28/21 Rx mcg/dose blistr powdr for inhalation (Advair Diskus) montelukast 10 mg tablet 10 mg PO BEDTIME #90 tabs 04/26/21 12/28/21 Rx (Singulair) albuterol sulfate 2.5 mg/3 mL 2.5 mg (3 mL) inhalation Q6-8H PRN 07/04/21 12/28/21 Rx (0.083 %) solution for nebulization shortness of breath or wheezing #15 mL ondansetron 4 mg disintegrating 4 mg PO Q6-8H PRN nausea and 11/01/21 12/28/21 Rx tablet vomiting #14 tabs lorazepam 0.5 mg tablet 0.5 mg PO Q8H PRN anxiety #15 tabs 11/29/21 12/28/21 Rx thyroid (pork) 120 mg tablet (QUALITY REP 120 mg PO DAILY #60 tabs 11/29/21 12/28/21 Rx Thyroid) thyroid (pork) 15 mg tablet (QUALITY REP 15 mg PO DAILY #60 tabs 11/29/21 12/28/21 Rx Thyroid) thyroid (pork) 30 mg tablet (QUALITY REP 30 mg PO DAILY #60 tabs 11/29/21 12/28/21 Rx Thyroid) dextroamphetamine-amphetamine ER 20 mg PO QAM #30 caps 12/20/21 12/28/21 Rx 20 mg 24hr capsule,extend release (Adderall XR) Allergies Allergy/AdvReac Type Severity Reaction Status Date / Time amoxicillin [AMOXICILLIN] Allergy Mild HIVES Verified 12/28/21 08:50 Penicillins [PENICILLINS] Allergy Unknown Verified 12/28/21 08:50 adhesive AdvReac Intermediate Blister Verified 12/28/21 08:50 morphine [MORPHINE] AdvReac Mild HALLUCINATI Verified 12/28/21 08:50 ONS oxycodone [OXYCODONE] AdvReac Mild VOMITING Verified 12/28/21 08:50 Exam Vital Signs (past 8 hours): - 12/28/21 08:57 Temperature 96.7 F L Pulse Rate 56 L Respiratory Rate 16 Blood Pressure 115/72 Pulse Oximetry 100 Oxygen Delivery Method Room Air Oxygen Delivery Method Room Air Narrative Exam Narrative: HEENT: No thyromegaly, no anterior cervical or supraclavicular lymphadenopathy. Lungs: Clear to auscultation bilaterally, no wheezes. Cardiovascular: Regular rate and rhythm, no murmurs, rubs, or gallops. Abdomen: No scars. No hepatosplenomegaly. No masses palpable. External genitalia: Normal Vagina: Normal Cervix: Normal, parous Bimanual exam: 7 Week size Anteverteduterus. Mobile.] bilateral uterosacral tenderness. Rectal: No masses Assessment & Plan Assessment & Plan narrative: Assessment: 41-year-old 4 para 3013 with dysmenorrhea, abnormal uterine bleeding, and bilateral uterosacral tenderness Plan: Diagnostic laparoscopy with possible fulguration of endometriosis and D&C hysteroscopy the risks, benefits, and alternatives to the procedure were explained to the patient. The risks including bleeding, infection, injury to the bowel, bladder, or ureters , or uterine perforation. She understands these risks and agrees to proceed. A full par Q was held and consent form was signed. COVID-19 COVID-19 status: Negative Result date/Date tested (Pos, Neg/Pending): 12/27/21 Time Spent With Patient Critical Care time: I spent a total of [] minutes of critical care time on this patient's care today; this time is exclusive of procedural time.
[2021-12-28] MEDS: MIDAZOLAM 2 MG/2 ML VIAL IV ×2 (10:44)
[2021-12-28] MEDS: APREPITANT 40 MG CAPSULE PO (10:44)
--- NOTE | 2021-12-28 10:54 | PM.PREOP ---
Pre-operative Note COVID-19 COVID-19 status: Negative Result date/Date tested (Pos, Neg/Pending): 12/27/21 Criteria for continued procedure: Non-surgical alternatives not available or appropriate per current SOC Interval Note History & Physical reviewed/Exam performed by Physician: Yes Changes to H&P: No H&P completed within 30 days and has changed as indicated here:: 12/28/21
--- NOTE | 2021-12-28 11:25 | SUR.OPER ---
Lithotomy on padded OR bed, head on pillow, arms secured AND padded AT SIDES. Legs secured in padded yellow fins stirrups. POSITION APPROVED BY SURGEON AND ANESTHESIA
[2021-12-28] MEDS: BUPIVACAINE 0.5% W/ EPI (PF) 30 ML VIAL INJ (11:30)
[2021-12-28] MEDS: LORazepam 2 MG/ML INJ 0.25 MG IV (12:19)
[2021-12-28] MEDS: ALBUTEROL 2.5 MG/3 ML NEB (ADULT) INH (12:25)
[2021-12-28] MEDS: fentaNYL 100 MCG/2 ML INJ IV (12:35)
--- NOTE | 2021-12-28 12:35 | P.OP_ITS ---
Operative Date/Time/Diagnoses Date of procedure: 12/28/21 Time of procedure: 12:35 Pre-op diagnosis: Pelvic pain Dysmenorrhea Abnormal uterine bleeding Post-op diagnosis: same Procedure & Clinicians Procedure: Procedures Operation Date: 12/28/21 09:45 Actual Procedure Side Surgeon p Diagnostic Laparoscopy Tessa Theodore MD s Hysteroscopy D&C Tessa Theodore MD Indications: Dysmenorrhea Bilateral uterosacral tenderness Abnormal uterine bleeding Surgeon: Tessa Theodore Anesthesia Type: General and Local Operative Notes Findings: 7 week size slightly retroverted uterus Normal left ovary Right ovary adhesed to the right pelvic sidewall over top of the ureter Tubes status post ligation bilaterally Normal appendix Normal liver and gallbladder Normal endometrium Closure Type: primary Specimen(s): endometrial curettings Estimated blood loss (mL): 5 Blood products transfused: none Procedure in detail: After informed consent was obtained, the patient was taken to the operating room where she was placed in the dorsal supine position. After adequate general endotracheal anesthesia was achieved, she was placed in the dorsal lithotomy position, and prepped and draped in the usual sterile fashion. A time-out was performed. A bivalve speculum was placed into the vagina and the anterior lip of the cervix was grasped with a single-tooth tenaculum. The cervical os was sequentially dilated until the Zumi uterine manipulator could pass easily into the endometrial cavity. Single-tooth tenaculum was removed from the anterior lip of the cervix. The bivalve speculum was removed from the vagina. Attention was then turned to the abdomen where 6 cc of 0.5% Marcaine with epinephrine were injected in the umbilical fold. A 5 mm incision was made. The Veress needle was placed into the peritoneal cavity, and its placement confirmed by aspiration and drop test. The abdominal cavity was insufflated with 3.1 L of CO2. The Veress needle was removed, and a 5 mm trocar was placed without difficulty. A second incision was made after 6 cc of 0.5% Marcaine with epinephrine were injected. This was 4 cm to the left of midline at the level of the umbilicus. A second 5 mm trocar was placed under direct visualization. The probe was used to identify both ovaries and tubes with the findings noted above. The liver, gallbladder, and appendix were visualized and were normal. The anterior and p osterior cul-de-sacs were visualized and showed no evidence of endometriosis. Bilateral ovarian fossa were examined and showed no evidence of endometriosis. The instruments were removed from the abdomen. The CO2 was allowed to escape. The incisions were closed with Dermabond. Allevyn dressings were placed. Attention was then turned to the vagina where the Zumi uterine manipulator was removed from the uterus. The cervix was dilated to the # 8 Hegar dilator. The hysteroscope passed easily into the endometrial cavity. The fallopian tube ostia were observed. There were no polyps or fibroids in the uterus. The hysteroscope was removed. Sharp curettage was performed yielding a moderate amount of endometrial curettings. The instruments were removed from the uterus. The single-tooth tenaculum was removed from the anterior lip of the cervix. The bivalve speculum was removed from the vagina. Sponge, lap, and instrument counts were correct x2. The patient tolerated the procedure well, and was taken to PACU in stable condition. Complications: none Post-operative Condition: stable Disposition: PACU Plan for aftercare: Home after recovery
== END 2021-12-28 13:28 | disposition home or self-care (01) ==
PROVIDERS: PCP Registered Nurse Diabetes Educator; Referring Provider Obstetrics & Gynecology; Visit Provider Obstetrics & Gynecology
PROC: 0U5B4ZZ Destruction of Endometrium, Percutaneous Endoscopic Approach (ICD-10-PCS; CPT 58662; principal; 2021-12-28 09:45)
PROC: 0UDB8ZZ Extraction of Endometrium, Via Natural or Artificial Opening Endoscopic (ICD-10-PCS; CPT 58558; 2021-12-28 09:45)
DX: N94.6 Dysmenorrhea, unspecified (principal); J45.909 Unspecified asthma, uncomplicated; F41.9 Anxiety disorder, unspecified; F32.A Depression, unspecified; F43.10 Post-traumatic stress disorder, unspecified; E66.9 Obesity, unspecified; N80.9 Endometriosis, unspecified
CPT/HCPCS: 49320; 58558; J1100; J1885; J2060; J2250; J2405; J2704; J3010; J7613; J8501

== ENCOUNTER 2021-12-31 15:25 | Emergency (ER) | payer OTHER, MEDICAID, SELFPAY ==
[2021-10-20 11:45] VITALS: BMI 31.8
[2021-12-31 15:51] VITALS: BP 129/81; PULSE 60; RESP 20; TEMP 36.9; O2SAT 98; BMI 31.8
--- NOTE | 2021-12-31 15:58 | DI.RAD.S_ITS ---
PROCEDURE: XR CHEST 1V INDICATIONS: suspected sepsis TECHNIQUE: One view of the chest was acquired. COMPARISON: [facility], CR, XR CHEST 1V, 08/30/2020, 11:58. FINDINGS: Surgical changes and devices: None. Lungs and pleura: Lungs are clear. No pleural effusions or pneumothorax. Mediastinum: Mediastinal contours appear normal. Heart size is normal. Bones and chest wall: No suspicious bony lesions. Overlying soft tissues appear unremarkable. IMPRESSION: No acute cardiopulmonary abnormality. Dictated by: Garth Wong M.D. on 12/31/2021 at 15:41 Approved by: Garth Wong M.D. on 12/31/2021 at 15:41
[2021-12-31 16:43] LABS: COVID19 -Nasal RAPID Negative (Negative)
[2021-12-31 17:28] LABS: Lactate (Lactic Acid) 0.9 mmol/L (0.7-2.1)
[2021-12-31 17:30] LABS: Alanine Aminotransferase 16 IU/L (<35); Albumin 4.1 g/dL (3.5-5.0); Albumin Globulin Ratio 1.2 (1.0-2.8); Alkaline Phosphatase 70 U/L (38-126); Aspartate Aminotransferase 18 IU/L (14-36); Bilirubin Total 0.2 mg/dL (0.2-1.3); Blood Urea Nitrogen 10 mg/dL (7-17); Carbon Dioxide 28 mmol/L (22-32); Chloride 102 mmol/L (98-107); Estimated Glomerular Filt Rate > 60 mL/min (>60); Globulin 3.4 g/dL (1.7-4.1); Glucose 86 mg/dL (70-100); HEMOLYSIS < 15 (0-50); Lipase 28 U/L (23-300); Potassium 3.8 mmol/L (3.4-5.1); Sodium 137 mmol/L (137-145); Total Protein 7.5 g/dL (6.3-8.2)
[2021-12-31 17:39] LABS: Add Manual Diff / Slide Review NO; Basophils Absolute Auto 100 /uL (0-100); Basophils Percent Auto 0.4 % (0-2); Eosinophils Absolute Auto 200 /uL (0-450); Eosinophils Percent Auto 1.7 % (2-4); Hematocrit 39.5 % (36-46); Hemoglobin 13.1 g/dL (12.0-16.0); Lymphocytes Absolute Auto 2200 /uL (1100-4500); Lymphocytes Percent Auto 18.5 % (25-40); Mean Corpuscular HGB Conc 33.1 % (30-36); Mean Corpuscular Hemoglobin 29.7 PG (26-34); Mean Corpuscular Volume 89.9 fL (80-100); Monocytes Absolute Auto 700 /uL (0-900); Monocytes Percent Auto 6.1 % (3-14); Neutrophils Absolute Auto 8600 /uL (1500-7000); Neutrophils Percent Auto 73.3 % (50-75); Platelet Count 393 X10^3/uL (150-400); Red Blood Cell Count 4.39 X10^6/uL (4.0-5.2); Red Cell Distribution Width 13.3 % (11.6-14.8); White Blood Cell Count 11.8 X10^3/uL (4.5-11.0)
[2021-12-31 17:45] LABS: Procalcitonin < 0.03 ng/mL (<0.5)
--- NOTE | 2021-12-31 19:13 | ED_ITS ---
HPI - General Adult General Chief complaint: Weakness Stated complaint: Post Op() pain and confusion, Hallucinatio Time Seen by Provider: 12/31/21 18:57 Source: patient Mode of arrival: Family Vehicle History of Present Illness HPI narrative: Patient is a 41-year-old female who approximately 3 days ago underwent general anesthesia for a exploratory laparoscopy for evaluation of endometriosis. She states that the procedure went well however felt very confused in lightheaded and and not feeling well. She is had chills and tremors and generally not feeling very well. She states she is not having any discomfort. Has been eat ing and drinking. Has not tried anything for symptoms prior to arrival. Related Data Previous Rx's Medication Instructions Recorded nebulizer #1 ea 07/15/19 epinephrine 0.3 mg/0.3 mL 0.3 mg (0.3 mL) IM Q5-15M PRN 12/15/19 injection, auto-injector anaphylaxis #2 ea ondansetron 4 mg disintegrating 4 mg PO Q8H PRN nausea and 01/07/21 tablet vomiting #10 tabs albuterol sulfate 90 mcg/actuation 2 puff inhalation Q4H PRN 04/26/21 aerosol inhaler shortness of breath or wheezing #25.5 grams cyclobenzaprine 10 mg tablet 10 mg PO BEDTIME PRN muscle spasm 04/26/21 #10 tabs fluticasone 500 mcg-salmeterol 50 1 inh inhalation Q12H #180 ea 04/26/21 mcg/dose blistr powdr for inhalation (Advair Diskus) montelukast 10 mg tablet 10 mg PO BEDTIME #90 tabs 04/26/21 (Singulair) albuterol sulfate 2.5 mg/3 mL 2.5 mg (3 mL) inhalation Q6-8H PRN 07/04/21 (0.083 %) solution for nebulization shortness of breath or wheezing #15 mL ondansetron 4 mg disintegrating 4 mg PO Q6-8H PRN nausea and 11/01/21 tablet vomiting #14 tabs lorazepam 0.5 mg tablet 0.5 mg PO Q8H PRN anxiety #15 tabs 11/29/21 thyroid (pork) 120 mg tablet ([employer]VIEWER 120 mg PO DAILY #60 tabs 11/29/21 Thyroid) thyroid (pork) 15 mg tablet ([employer] INTERVIEWER 15 mg PO DAILY #60 tabs 11/29/21 Thyroid) thyroid (pork) 30 mg tablet ([employer] INTERVIEWER 30 mg PO DAILY #60 tabs 11/29/21 Thyroid) dextroamphetamine-amphetamine ER 20 mg PO QAM #30 caps 12/20/21 20 mg 24hr capsule,extend release (Adderall XR) ondansetron 4 mg disintegrating 4 mg PO Q6H PRN nausea and 12/28/21 tablet vomiting #20 tabs oxycodone 5 mg tablet 5 mg PO Q4H PRN pain #20 tabs 12/28/21 Allergies Allergy/AdvReac Type Severity Reaction Status Date / Time amoxicillin [AMOXICILLIN] Allergy Mild HIVES Verified 12/31/21 15:51 Penicillins [PENICILLINS] Allergy Unknown Verified 12/31/21 15:51 adhesive AdvReac Intermediate Blister Verified 12/31/21 15:51 morphine [MORPHINE] AdvReac Mild HALLUCINATI Verified 12/31/21 15:51 ONS oxycodone [OXYCODONE] AdvReac Mild VOMITING Verified 12/31/21 15:51 Review of Systems Review of Systems ROS Unobtainable: All systems reviewed & are unremarkable except as noted in HPI and below Patient History Medical History Abdominal pain Acquired hypothyroidism Allergic rhinitis (2008) Anaphylaxis Anemia (2004) Anorexia nervosa (1999) Anxiety (Unknown) Asthma (2004) Asthma exacerbation (~2004) Benign familial tremor (~2012) Bladder pain Blindness Carpal tunnel syndrome (2013) Chicken pox (1986) Chickenpox (1986) Chronic back pain (2014) Cyst of ovary Depression (Unknown) Fibroids (~2016) Headache (~2010) Hypothyroidism (2009) Migraines (2010) Mild persistent asthma Moderate persistent asthma Ovarian cyst (2001) Partial blindness (1981) Postprocedural hypothyroidism (~2009) Preventative health care PTSD (post-traumatic stress disorder) (2009) Shoulder pain (2013) Thyroid cancer (2009) Thyroid nodule (2000) UTI (urinary tract infection) Vertigo (2008) Surgical History Anesthesia complication H/O right knee surgery History of thyroidectomy (2009) Hx of eye surgery (1984) Hx of removal of cyst (2013) Hx of tonsillectomy (2001) S/P wisdom tooth extraction Status post delivery (2007) Family History Father Dementia Mental health problem Addiction Mother Diabetes mellitus Heart attack Hypertension Uterine cancer Heart disease Grandfather Cancer Heart disease Hypertension Hyperlipidemia Stroke Pancreatic cancer Lung cancer Grandmother Diabetes mellitus Hypertension Mental health problem Blood infection Heart disease Grandfather Heart disease Stroke Cancer Grandmother Diabetes mellitus Social History household members: spouse and children Smoking Status: Never smoker alcohol intake: current substance use type: does not use Smoking Status: Never smoker alcohol intake frequency: 0-2 drinks per day Substance Use Type: does not use Exam Initial Vital Signs Initial Vital Signs: Vital Signs Temperature 98.4 F 12/31/21 15:51 Pulse Rate 60 12/31/21 15:51 Respiratory Rate 20 12/31/21 15:51 Blood Pressure 129/81 12/31/21 15:51 Pulse Oximetry 98 12/31/21 15:51 Oxygen Delivery Method 12/31/21 15:51 HENMT Head: normal to inspection and normocephalic Resp Effort & Inspection: normal respiratory effort Auscultation: clear to auscultation bilaterally Cardio Rate: regular rate Rhythm: regular rhythm GI Inspection: normal to inspection Neuro General: patient alert, patient awake and moves all extremities Extrem General: normal to inspection Course Orders Ordered: ED Orders 12/31/21 19:50 Urine Culture Stat Urine Microscopic Stat Discontinued Medications Sodium Chloride (Normal Saline 0.9%) 1,000 mls @ 1,000 mls/hr IV BOLUS ONE Stop: 12/31/21 16:57 Last Infusion: 12/31/21 21:28 Dose: 0 mls/hr Documented By: Admin: 12/31/21 19:50 Dose: 1,000 mls/hr Documented By: KF Vital Signs Vital signs: Vital Signs - 8 hr 12/31/21 21:38 Pulse Rate 62 Blood Pressure 133/77 Pulse Oximetry 99 Oxygen Delivery Method Room Air Medical Decision Making Lab Data Result diagrams: 12/31/21 16:23 12/31/21 16:23 Labs: Lab Results 12/31/21 12/31/21 12/31/21 Range/Units 16:00 16:23 16:23 WBC 11.8 H (4.5-11.0) X10^3/uL RBC 4.39 (4.0-5.2) X10^6/uL Hgb 13.1 (12.0-16.0) g/dL Hct 39.5 (36-46) % MCV 89.9 (80-100) fL MCH 29.7 (26-34) PG MCHC 33.1 (30-36) % RDW 13.3 (11.6-14.8) % Plt Count 393 (150-400) X10^3/uL Neut % (Auto) 73.3 (50-75) % Lymph % (Auto) 18.5 L (25-40) % [place] % (Auto) 6.1 (3-14) % Eos % (Auto) 1.7 L (2-4) % Baso % (Auto) 0.4 (0-2) % Neut # (Auto) 8600 H (7892-3796) /uL Lymph # (Auto) 2200 (7576-3839) /uL [place] # (Auto) 700 (0-900) /uL Eos # (Auto) 200 (0-450) /uL Baso # (Auto) 100 (0-100) /uL Sodium 137 (137-145) mmol/L Potassium 3.8 (3.4-5.1) mmol/L Chloride 102 (98-107) mmol/L Carbon Dioxide 28 (22-32) mmol/L BUN 10 (7-17) mg/dL Creatinine 0.77 (0.52-1.04) mg/dL Estimated GFR > 60 (>60) mL/min BUN/Creatinine Ratio 13.0 (6-22) Glucose 86 (70-100) mg/dL Lactate (0.7-2.1) mmol/L Calcium 9.0 (8.4-10.2) mg/dL Total Bilirubin 0.2 (0.2-1.3) mg/dL AST 18 (14-36) IU/L ALT 16 (<35) IU/L Alkaline Phosphatase 70 (38-126) U/L Total Protein 7.5 (6.3-8.2) g/dL Albumin 4.1 (3.5-5.0) g/dL Globulin 3.4 (1.7-4.1) g/dL Albumin/Globulin Ratio 1.2 (1.0-2.8) Lipase 28 (23-300) U/L Procalcitonin < 0.03 (<0.5) ng/mL Urine RBC (0-5/HPF) Urine WBC (0-5/HPF) Ur Squamous Epith Cells (0-5/HPF) Urine Bacteria (None) Ur Culture Indicated? SARS-CoV-2 (PCR) Negative (Negative) 12/31/21 12/31/21 Range/Units 16:23 19:50 WBC (4.5-11.0) X10^3/uL RBC (4.0-5.2) X10^6/uL Hgb (12.0-16.0) g/dL Hct (36-46) % MCV (80-100) fL MCH (26-34) PG MCHC (30-36) % RDW (11.6-14.8) % Plt Count (150-400) X10^3/uL Neut % (Auto) (50-75) % Lymph % (Auto) (25-40) % [place] % (Auto) (3-14) % Eos % (Auto) (2-4) % Baso % (Auto) (0-2) % Neut # (Auto) (2960-3892) /uL Lymph # (Auto) (6970-4596) /uL [place] # (Auto) (0-900) /uL Eos # (Auto) (0-450) /uL Baso # (Auto) (0-100) /uL Sodium (137-145) mmol/L Potassium (3.4-5.1) mmol/L Chloride (98-107) mmol/L Carbon Dioxide (22-32) mmol/L BUN (7-17) mg/dL Creatinine (0.52-1.04) mg/dL Estimated GFR (>60) mL/min BUN/Creatinine Ratio (6-22) Glucose (70-100) mg/dL Lactate 0.9 (0.7-2.1) mmol/L Calcium (8.4-10.2) mg/dL Total Bilirubin (0.2-1.3) mg/dL AST (14-36) IU/L ALT (<35) IU/L Alkaline Phosphatase (38-126) U/L Total Protein (6.3-8.2) g/dL Albumin (3.5-5.0) g/dL Globulin (1.7-4.1) g/dL Albumin/Globulin Ratio (1.0-2.8) Lipase (23-300) U/L Procalcitonin (<0.5) ng/mL Urine RBC >100/hpf H (0-5/HPF) Urine WBC 0-1/hpf (0-5/HPF) Ur Squamous Epith Cells F (0-5/HPF) Urine Bacteria Moderate (10-30) H (None) Ur Culture Indicated? Specimen cultured SARS-CoV-2 (PCR) (Negative) Urine Dip Bedside Urine Glucose Negative Bedside Urine Bilirubin - Negative Bedside Urine Ketone - Negative Urine Specific [place] 1.020 Bedside Urine Occult Blood +++ Bedside Urine pH 6.0 Bedside Urine Protein +/- 15 Bedside Urine Urobilinogen - Negative Bedside Urine Nitrite - Negative Bedside Urine Leukocytes + 70 Esterase Point of care testing: Urine Dip Bedside Urine Glucose Negative Bedside Urine Bilirubin - Negative Bedside Urine Ketone - Negative Urine Specific [place] 1.020 Bedside Urine Occult Blood +++ Bedside Urine pH 6.0 Bedside Urine Protein +/- 15 Bedside Urine Urobilinogen - Negative Bedside Urine Nitrite - Negative Bedside Urine Leukocytes + 70 Esterase MDM Narrative Medical decision making narrative: Labs are unremarkable. Specific indication of any infection. Does have red blood cells and bacteria in the urine however no white blood cells. Will wait for urine culture before treating with any antibiotics. She has a nonfocal benign exam. New issue for any antibiotics. No indication for admission to the hospital. The patient contact her operative provider tomorrow for follow-up. She was given return precautions. Expressed understanding and agreement plan. Discharge Plan Departure Patient Disposition: Home Clinical Impression: Fatigue Activity Restrictions/Additional Instructions: Recommend you continue home medications as directed. Follow all the postoperative instructions given to you by the flag signalman. Contact your primary doctor and your OBGYN doctor tomorrow for a follow-up. Return to the emergency department for any new or worsening symptoms. Prescriptions: No Action ondansetron 4 mg tablet,disintegrating 4 mg PO Q6-8H PRN (Reason: nausea and vomiting) Qty: 14 0RF (DME) nebulizer Qty: 1 0RF Rx Instructions: Use nebulizer as directed. albuterol sulfate 2.5 mg /3 mL (0.083 %) solution for nebulization 2.5 mg INHALATION Q6-8H PRN (Reason: shortness of breath or wheezing) Qty: 15 0RF thyroid (pork) [[employer]OUSING INTERVIEWER Thyroid] 120 mg tablet 120 mg PO DAILY Qty: 60 0RF Rx Instructions: Take a total dose of 165 mg daily thyroid (pork) [[employer]OUSING INTERVIEWER Thyroid] 30 mg tablet 30 mg PO DAILY Qty: 60 0RF Rx Instructions: Take a total dose of 165 mg daily thyroid (pork) [[employer] HOUSING INTERVIEWER Thyroid] 15 mg tablet 15 mg PO DAILY Qty: 60 0RF Rx Instructions: Take a total daily dose of 165 mg. lorazepam 0.5 mg tablet 0.5 mg PO Q8H PRN (Reason: anxiety) Qty: 15 0RF dextroamphetamine-amphetamine [Adderall XR] 20 mg capsule,extended release 24hr 20 mg PO QAM Qty: 30 0RF epinephrine 0.3 mg/0.3 mL auto-injector 0.3 mg IM Q5-15M PRN (Reason: anaphylaxis) Qty: 2 2RF Rx Instructions: do not exceed 3 doses per episode fluticasone propion-salmeterol [Advair Diskus] 500-50 mcg/dose blister with device 1 inh inhalation Q12H Qty: 180 3RF montelukast [Singulair] 10 mg tablet 10 mg PO BEDTIME Qty: 90 3RF albuterol sulfate 90 mcg/actuation HFA aerosol inhaler 2 puff INHALATION Q4H PRN (Reason: shortness of breath or wheezing) Qty: 25.5 11RF Rx Instructions: MUST BE [employer]EV[employer]AND cyclobenzaprine 10 mg tablet 10 mg PO BEDTIME PRN (Reason: muscle spasm) Qty: 10 2RF ondansetron 4 mg tablet,disintegrating 4 mg PO Q8H PRN (Reason: nausea and vomiting) Qty: 10 0RF oxycodone 5 mg tablet 5 mg PO Q4H PRN (Reason: pain) Qty: 20 0RF ondansetron 4 mg tablet,disintegrating 4 mg PO Q6H PRN (Reason: nausea and vomiting) Qty: 20 0RF Referrals: Jaskaran Hadley ARNP [Primary Care Provider] - Visit Report Forms: Patient Portal/API
[2021-12-31] MEDS: SODIUM CHLORIDE 0.9% 1,000 ML 1000 ML IV (19:50)
[2021-12-31 21:07] LABS: Bacteria Urine Moderate (10-30); RBC Urine >100/HPF (0-5/HPF); Squamous Epithelial Cell Urine F (0-5/HPF); WBC Urine 0-1/HPF (0-5/HPF)
[2021-12-31 21:09] LABS: Culture Indicated Urine Specimen Cultured
[2021-12-31 21:38] VITALS: BP 133/77; PULSE 62; O2SAT 99
== END 2021-12-31 21:39 | disposition home or self-care (01) ==
PROVIDERS: Emergency Medicine; Emergency Provider Emergency Medicine; PCP Registered Nurse Diabetes Educator
DX: R53.83 Other fatigue (principal); Z20.822 Contact with and (suspected) exposure to COVID-19
CPT/HCPCS: 36415; 71045; 80053; 81003; 81015; 83605; 83690; 84145; 85025; 87040; 87086; 87635; 96360; 96361; 99283; 99284; C9803

== ENCOUNTER 2022-01-14 23:28 | Emergency (ER) | payer OTHER, MEDICAID, SELFPAY ==
[2021-10-20 11:45] VITALS: BMI 31.8
[2022-01-14 23:55] VITALS: BP 132/67; PULSE 77; RESP 17; TEMP 36.4; O2SAT 97; BMI 31.8
--- NOTE | 2022-01-15 01:41 | ED.EYEPROB ---
HPI - Eye Problem General Chief complaint: Eye Problems Stated complaint: right eye pain Time Seen by Provider: 01/15/22 01:40 Source: patient Mode of arrival: Ambulatory Limitations: no limitations History of Present Illness HPI Narrative: This is a 41-year-old female with congenital left eye blindness, asthma, and hypothyroidism. Patient states that she noticed some redness in her right eye starting Saturday with the vessels particularly on the medial side appearing more prominent and red and a little bit grayish underneath on the sclera. Patient states her eye feels like little bit more pressure but not really painful. No injury that she is aware of no drainage or discharge. No significant vision changes in terms of loss or decreased but she states that her left eye noticed some smudge today and some squiggly lines which have gotten better. She denies contacts or glasses. States she has no vision in her left eye other than motion and some light and that has been present since . Patient does not have an lining presser that she follows with. She has not had any known sick contacts. 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 Related Data Previous Rx's Medication Instructions Recorded nebulizer #1 ea 07/15/19 epinephrine 0.3 mg/0.3 mL 0.3 mg (0.3 mL) IM Q5-15M PRN 12/15/19 injection, auto-injector anaphylaxis #2 ea ondansetron 4 mg disintegrating 4 mg PO Q8H PRN nausea and 01/07/21 tablet vomiting #10 tabs albuterol sulfate 90 mcg/actuation 2 puff inhalation Q4H PRN 04/26/21 aerosol inhaler shortness of breath or wheezing #25.5 grams cyclobenzaprine 10 mg tablet 10 mg PO BEDTIME PRN muscle spasm 04/26/21 #10 tabs fluticasone 500 mcg-salmeterol 50 1 inh inhalation Q12H #180 ea 04/26/21 mcg/dose blistr powdr for inhalation (Advair Diskus) montelukast 10 mg tablet 10 mg PO BEDTIME #90 tabs 04/26/21 (Singulair) albuterol sulfate 2.5 mg/3 mL 2.5 mg (3 mL) inhalation Q6-8H PRN 07/04/21 (0.083 %) solution for nebulization shortness of breath or wheezing #15 mL ondansetron 4 mg disintegrating 4 mg PO Q6-8H PRN nausea and 11/01/21 tablet vomiting #14 tabs lorazepam 0.5 mg tablet 0.5 mg PO Q8H PRN anxiety #15 tabs 11/29/21 thyroid (pork) 120 mg tablet ([employer] 120 mg PO DAILY #60 tabs 11/29/21 Thyroid) thyroid (pork) 15 mg tablet ([employer] 15 mg PO DAILY #60 tabs 11/29/21 Thyroid) thyroid (pork) 30 mg tablet ([employer] 30 mg PO DAILY #60 tabs 11/29/21 Thyroid) dextroamphetamine-amphetamine ER 20 mg PO QAM #30 caps 12/20/21 20 mg 24hr capsule,extend release (Adderall XR) ondansetron 4 mg disintegrating 4 mg PO Q6H PRN nausea and 12/28/21 tablet vomiting #20 tabs oxycodone 5 mg tablet 5 mg PO Q4H PRN pain #20 tabs 12/28/21 Allergies Allergy/AdvReac Type Severity Reaction Status Date / Time amoxicillin [AMOXICILLIN] Allergy Mild HIVES Verified 12/31/21 15:51 Penicillins [PENICILLINS] Allergy Unknown Verified 12/31/21 15:51 adhesive AdvReac Intermediate Blister Verified 12/31/21 15:51 morphine [MORPHINE] AdvReac Mild HALLUCINATI Verified 12/31/21 15:51 ONS oxycodone [OXYCODONE] AdvReac Mild VOMITING Verified 12/31/21 15:51 Review of Systems Review of Systems ROS Unobtainable: All systems reviewed & are unremarkable except as noted in HPI and below Patient History Medical History Abdominal pain Acquired hypothyroidism Allergic rhinitis (2008) Anaphylaxis Anemia (2004) Anorexia nervosa (1999) Anxiety (Unknown) Asthma (2004) Asthma exacerbation (~2003) Benign familial tremor (~2012) Bladder pain Blindness Carpal tunnel syndrome (2013) Chicken pox (1986) Chickenpox (1986) Chronic back pain (2014) Cyst of ovary Depression (Unknown) Fibroids (~2016) Headache (~2010) Hypothyroidism (2009) Migraines (2010) Mild persistent asthma Moderate persistent asthma Ovarian cyst (2001) Partial blindness (1981) Postprocedural hypothyroidism (~2009) Preventative health care PTSD (post-traumatic stress disorder) (2009) Shoulder pain (2013) Thyroid cancer (2009) Thyroid nodule (2000) UTI (urinary tract infection) Vertigo (2008) Surgical History Anesthesia complication H/O right knee surgery History of thyroidectomy (2009) Hx of eye surgery (1984) Hx of removal of cyst (2013) Hx of tonsillectomy (2001) S/P wisdom tooth extraction Status post delivery (2007) Family History Father Dementia Mental health problem Addiction Mother Diabetes mellitus Heart attack Hypertension Uterine cancer Heart disease Grandfather Cancer Heart disease Hypertension Hyperlipidemia Stroke Pancreatic cancer Lung cancer Grandmother Diabetes mellitus Hypertension Mental health problem Blood infection Heart disease Grandfather Heart disease Stroke Cancer Grandmother Diabetes mellitus Social History household members: spouse and children Smoking Status: Never smoker alcohol intake: current substance use type: does not use Smoking Status: Never smoker alcohol intake frequency: 0-2 drinks per day Substance Use Type: does not use Exam Narrative Exam Narrative: GEN: well nourished, well appearing female, alert and oriented x 3, patient appears to be in mild distress. HEENT: Atraumatic, pupils are equal round reactive to light, extraocular movements are intact, nares are clear, TMs are clear with no fluid, there is no conjunctival pallor. Throat is clear without any exudates, erythema, tonsillar enlargement or uvular deviation. Visual acuity: right [20/50],left motion/light IOP: Right 18 mm Hg, Left 17 mm Hg General: no globe trauma Eyelids: normal inspection, eyelids everted for exam on rate. Conjunctiva/Sclera: normal inspection Corneas: normal inspection, examined with fluroscein on right eye with mild punctate uptake at the inner sclera but no corneal abrasion, no uptake over the cornea no ulceration. EOM: intact, no palsy/entrapment Pupils: PERRL, normal accomadation, pupil normal Anterior Chambers: normal inspection, no hypema Posterior: normal fundoscopic on right HEART: Regular rate and rhythm without murmur, clicks, rubs. LUNGS:Lungs clear to auscultation, no wheezes, rales, crackles, chest moves symmetrically MSCL: full range of motion, normal gait NEURO:CN 2-12 intact, sensation normal, Initial Vital Signs Initial Vital Signs: Vital Signs Temperature 97.5 F L 01/14/22 23:55 Pulse Rate 77 01/14/22 23:55 Respiratory Rate 17 01/14/22 23:55 Blood Pressure 132/67 01/14/22 23:55 Pulse Oximetry 97 01/14/22 23:55 Oxygen Delivery Method 01/14/22 23:55 Course Orders Ordered: Discontinued Medications Fluorescein Sodium (Fluorescein 1 Mg Strip) 1 mg EYE-RIGHT NOW ONE Stop: 01/15/22 01:48 Last Admin: 01/15/22 02:01 Dose: 1 mg Documented By: KARLEE Polymyxin/Trimethoprim Sulfate (Polymy B/Trimeth Ophth Prepack) 1 bottle MISC SEEINSTR ONE Stop: 01/15/22 02:02 Last Admin: 01/15/22 02:11 Dose: 1 drop Documented By: KARLEE Proparacaine HCl (Proparacaine 0.5% Ophth Acacia) 1 drops EYE-BOTH NOW ONE Stop: 01/15/22 01:48 Last Admin: 01/15/22 02:01 Dose: 1 drop Documented By: KARLEE Vital Signs Vital signs: Vital Signs - 8 hr 01/14/22 23:55 01/15/22 02:15 Temperature 97.5 F L Pulse Rate 77 64 Respiratory Rate 17 Blood Pressure 132/67 122/73 Pulse Oximetry 97 98 Oxygen Delivery Method Room Air Room Air MDM - Eye Problem MDM Narrative Medical decision making narrative: 41-year-old female with a Julio erythema of right eye but no significant pain. No decrease in vision but patient has noticed some some Magenis. She does have congenital vision loss in her left eye with minimal light and movement at baseline. Patient's exam shows some mild scleral uptake, no conjunctival uptake no ulceration or abrasion, pressures are appropriate, exam overall reassuring and suspicious for conjunctivitis started on eye drops but plan for follow-up with ophthalmology during the following day as this is her sole source of vision. Return precautions discussed. Discharge Plan Departure Patient Disposition: Home Clinical Impression: Conjunctivitis Instructions: DI for Conjunctivitis Activity Restrictions/Additional Instructions: Follow-up in the morning with ophthalmology referral is included below. Call the office 1st thing in the morning that them know that the ER asked for you to be seen and they should be able to see you today. Use antibiotic eye drops, 1 drop every 3 hours or 6 times daily. You can use cool moist compresses to the affected area. Make sure to perform good hand hygiene and throat any washcloth or anything you wipe your eye with either in the wash or away. Please return for rapidly worsening symptoms, sudden loss or decreased vision, pain with in your eye, swelling, redness purulent discharge or other new or concerning symptoms Prescriptions: No Action ondansetron 4 mg tablet,disintegrating 4 mg PO Q6-8H PRN (Reason: nausea and vomiting) Qty: 14 0RF (DME) nebulizer Qty: 1 0RF Rx Instructions: Use nebulizer as directed. albuterol sulfate 2.5 mg /3 mL (0.083 %) solution for nebulization 2.5 mg INHALATION Q6-8H PRN (Reason: shortness of breath or wheezing) Qty: 15 0RF thyroid (pork) [[employer] Thyroid] 120 mg tablet 120 mg PO DAILY Qty: 60 0RF Rx Instructions: Take a total dose of 165 mg daily thyroid (pork) [[employer] Thyroid] 30 mg tablet 30 mg PO DAILY Qty: 60 0RF Rx Instructions: Take a total dose of 165 mg daily thyroid (pork) [[employer] Thyroid] 15 mg tablet 15 mg PO DAILY Qty: 60 0RF Rx Instructions: Take a total daily dose of 165 mg. lorazepam 0.5 mg tablet 0.5 mg PO Q8H PRN (Reason: anxiety) Qty: 15 0RF dextroamphetamine-amphetamine [Adderall XR] 20 mg capsule,extended release 24hr 20 mg PO QAM Qty: 30 0RF epinephrine 0.3 mg/0.3 mL auto-injector 0.3 mg IM Q5-15M PRN (Reason: anaphylaxis) Qty: 2 2RF Rx Instructions: do not exceed 3 doses per episode fluticasone propion-salmeterol [Advair Diskus] 500-50 mcg/dose blister with device 1 inh inhalation Q12H Qty: 180 3RF montelukast [Singulair] 10 mg tablet 10 mg PO BEDTIME Qty: 90 3RF albuterol sulfate 90 mcg/actuation HFA aerosol inhaler 2 puff INHALATION Q4H PRN (Reason: shortness of breath or wheezing) Qty: 25.5 11RF Rx Instructions: MUST BE [employer] cyclobenzaprine 10 mg tablet 10 mg PO BEDTIME PRN (Reason: muscle spasm) Qty: 10 2RF ondansetron 4 mg tablet,disintegrating 4 mg PO Q8H PRN (Reason: nausea and vomiting) Qty: 10 0RF oxycodone 5 mg tablet 5 mg PO Q4H PRN (Reason: pain) Qty: 20 0RF ondansetron 4 mg tablet,disintegrating 4 mg PO Q6H PRN (Reason: nausea and vomiting) Qty: 20 0RF Referrals: Edvin Magallon MD [Physician] - Jaskaran Hadley ARNP [Primary Care Provider] - Visit Report Forms: Patient Portal/API
[2022-01-15] MEDS: PROPARACAINE 0.5% OPHTH SOL 1 DROPS EYE-BOTH (02:01)
[2022-01-15] MEDS: FLUORESCEIN 1 MG STRIP EYE-RIGHT (02:01)
[2022-01-15] MEDS: POLYMY B/TRIMETH OPHTH PREPACK 1 BOTTLE MISC (02:11)
[2022-01-15 02:15] VITALS: BP 122/73; PULSE 64; O2SAT 98
== END 2022-01-15 02:15 | disposition home or self-care (01) ==
PROVIDERS: Emergency Provider Emergency Medicine; PCP Registered Nurse Diabetes Educator
DX: H10.9 Unspecified conjunctivitis (principal)
CPT/HCPCS: 99282

== ENCOUNTER → 2022-02-27 13:38 | Outpatient (CLI) | payer OTHER, MEDICAID, SELFPAY ==
[2021-10-20 11:45] VITALS: BMI 31.8
[2022-02-27 14:48] LABS: Add Manual Diff / Slide Review NO; Basophils Absolute Auto 0 /uL (0-100); Basophils Percent Auto 0.4 % (0-2); Eosinophils Absolute Auto 200 /uL (0-450); Eosinophils Percent Auto 2.3 % (2-4); Hematocrit 38.5 % (36-46); Lymphocytes Absolute Auto 1600 /uL (1100-4500); Lymphocytes Percent Auto 18.4 % (25-40); Mean Corpuscular HGB Conc 33.7 % (30-36); Monocytes Absolute Auto 700 /uL (0-900); Neutrophils Absolute Auto 6200 /uL (1500-7000); Neutrophils Percent Auto 70.9 % (50-75); Platelet Count 365 X10^3/uL (150-400); Red Blood Cell Count 4.32 X10^6/uL (4.0-5.2); Red Cell Distribution Width 13.6 % (11.6-14.8); White Blood Cell Count 8.8 X10^3/uL (4.5-11.0)
[2022-02-27 15:25] LABS: Erythrocyte Sedimentation Rate 23 MM/HR (0-20)
[2022-02-27 15:44] LABS: C-Reactive Protein Quant 1.8 mg/dL (<1.0)
[2022-02-27 15:46] LABS: Rheumatoid Factor < 8.6 IU/mL (<12.0)
[2022-02-27 16:02] LABS: Free T3, Triiodothyronine Free 4.43 pg/mL (2.77-5.27); Free T4, Direct Thyroxine 1.12 ng/dL (0.78-2.19)
[2022-02-27 16:15] LABS: Thyroid Stimulating Hormone 1.28 uIU/mL (0.47-4.68)
[2022-03-01 19:36] LABS: CCP Antibodies IgG/IgA 6 units (0-19)
[2022-03-02 14:08] LABS: ANA Screen, IFA Negative (.)
== END ==
PROVIDERS: PCP Registered Nurse Diabetes Educator; Referring Provider Registered Nurse Diabetes Educator; Visit Provider Registered Nurse Diabetes Educator
DX: E03.9 Hypothyroidism, unspecified (principal); H15.099 Other scleritis, unspecified eye; M25.50 Pain in unspecified joint
CPT/HCPCS: 36415; 84439; 84443; 84481; 85025; 85651; 86038; 86140; 86200; 86430

== ENCOUNTER → 2022-06-12 13:57 | Outpatient (CLI) | payer OTHER, MEDICAID, SELFPAY ==
[2021-10-20 11:45] VITALS: BMI 31.8
[2022-06-12 16:03] LABS: BUN Creatinine Ratio 12.9 (6-22); Blood Urea Nitrogen 9 mg/dL (7-17); Calcium 9.7 mg/dL (8.4-10.2); Carbon Dioxide 28 mmol/L (22-32); Chloride 100 mmol/L (98-107); Estimated Glomerular Filt Rate > 60 mL/min (>60); Glucose 75 mg/dL (70-100); HEMOLYSIS 22 (0-50); Potassium 3.9 mmol/L (3.4-5.1); Sodium 139 mmol/L (137-145)
[2022-06-12 17:01] LABS: Free T4, Direct Thyroxine 0.79 ng/dL (0.78-2.19)
== END ==
PROVIDERS: PCP Registered Nurse Diabetes Educator; Referring Provider Registered Nurse Diabetes Educator; Visit Provider Registered Nurse Diabetes Educator
DX: E03.9 Hypothyroidism, unspecified (principal); E66.9 Obesity, unspecified; Z51.81 Encounter for therapeutic drug level monitoring
CPT/HCPCS: 36415; 80048; 84439; 84443

== ENCOUNTER → 2023-03-15 15:52 | Outpatient (CLI) | payer OTHER, MEDICAID, SELFPAY ==
[2021-10-20 11:45] VITALS: BMI 31.8
--- NOTE | 2023-03-15 15:54 | DI.MRI.S_ITS ---
PROCEDURE: MR THORACIC SPINE WO/W CON INDICATIONS: eval paresthesias, unilateral hearing loss, vision change TECHNIQUE: Noncontrast sagittal T1 spin echo and T2 fast spin echo, sagittal STIR, axial T1 and T2 fast spin echo through the thoracic spine. After the administration of contrast, axial and sagittal T1 spin echo with fat saturation through the thoracic spine. COMPARISON: None. FINDINGS: Image quality: Diagnostic, with note made of motion artifact. Alignment and curvature: There is normal bony alignment. Marrow: Marrow is of normal overall signal. No acute vertebral body compression fractures. Spinal cord: Visualized spinal cord is of normal signal and size, without abnormal enhancement. No suspicious white matter lesions are seen within the thoracic spinal cord. Paraspinous soft tissues: No paravertebral masses or abnormal enhancement. Miscellaneous: Central canal and foramina appear widely patent at all scanned levels. IMPRESSION: Normal thoracic spine MRI. No masses or abnormal enhancement can be seen. No suspicious T2 hyperintense white matter lesions can be seen within the thoracic spinal cord. Dictated by: Artis Haywood M.D. on 03/15/2023 at 17:19 Approved by: Artis Haywood M.D. on 03/15/2023 at 17:21
--- NOTE | 2023-03-15 15:54 | DI.MRI.S_ITS ---
PROCEDURE: MR CERVICAL SPINE WO/W CON INDICATIONS: eval paresthesias, unilateral hearing loss, vision change TECHNIQUE: Noncontrast sagittal T1 spin echo and T2 fast spin echo, sagittal STIR, sagittal PD fast spin echo, foraminal oblique sagittal T2 fast spin echo, axial gradient echo or T2 fast spin echo through the cervical spine. After the administration of contrast, sagittal and axial T1 spin echo with fat saturation through the cervical spine. COMPARISON: [facility], MR, MR THORACIC SPINE WO/W CON, 03/15/2023, 16:13. [facility], MR, MR HEAD/BRAIN WO/W CON, 03/15/2023, 16:13. FINDINGS: Image quality: Excellent. Alignment and curvature: There is overall straightening of the normal cervical lordosis. No focal AP alignment abnormality is seen. Marrow: Marrow demonstrates normal overall signal. Spinal cord: Visualized spinal cord is normal in size, without white matter lesions. No suspicious intramedullary enhancement. No cerebellar tonsillar herniation. Paraspinous soft tissues: No paravertebral masses or suspicious enhancement. C2-C3: Normal appearance. C3-C4: [id number] loss of disc height and disc signal can be seen. At least moderate disc osteophyte complex is seen, which is eccentric to the right. There is a central disc osteophyte protrusion. Mild facet joint hypertrophy is seen. Moderate bilateral neural foraminal narrowing is seen. Moderate central canal narrowing is seen. There is associated mass effect upon the ventral spinal cord. C4-C5: The disc height and disk signal are relatively well-preserved. Mild to moderate disc osteophyte complex is seen, which is eccentric to the right, with a right foraminal disc osteophyte protrusion. Mild to moderate facet hypertrophy is seen. Moderate bilateral neural foraminal narrowing is seen. Mild to moderate central canal narrowing is seen. There is associated mass effect upon the ventral spinal cord. C5-C6: Moderate loss of disc height is seen. Loss of disc signal is seen. Moderate generalized disc osteophyte complex is seen. Mild facet joint hypertrophy is seen. Moderate bilateral neural foraminal narrowing can be seen, left worse than right. Mild to moderate central canal narrowing is seen. C6-C7: Normal appearance. C7-T1: Normal appearance. IMPRESSION: Multiple levels of premature cervical spine degenerative change can be seen. No abnormal enhancement is seen. No suspicious T2 hyperintense white matter lesions can be seen within the cervical cord. Dictated by: Artis Haywood M.D. on 03/15/2023 at 17:23 Approved by: Artis Haywood M.D. on 03/15/2023 at 17:27
--- NOTE | 2023-03-15 15:54 | DI.MRI.S_ITS ---
PROCEDURE: MR HEAD/BRAIN WO/W CON INDICATIONS: eval paresthesias, unilateral hearing loss, vision change TECHNIQUE: Noncontrast axial T1 spin echo, axial T2 fast spin echo, sagittal and axial FLAIR, coronal T2 fast spin echo, axial gradient echo, axial diffusion and ADC through the brain. After the administration of contrast, axial and coronal and sagittal 3D VIBE or T1 spin echo with fat saturation through the brain. COMPARISON: [facility], MR, MR THORACIC SPINE WO/W CON, 03/15/2023, 16:13. [facility], MR, MR CERVICAL SPINE WO/W CON, 03/15/2023, 16:13. Head CT, 05/26/2021 FINDINGS: Image quality: Diagnostic, with note made of motion artifact. CSF Spaces: Basal cisterns are patent. No extra-axial fluid collections. Ventricles are normal in size and shape. Brain: No midline shift. No intracranial bleeds or masses. No abnormal intracranial enhancement. The brainstem appears normal. Diffusion-weighted images demonstrate no acute ischemic insults. No chronic ischemic insults. Normal intravascular flow voids are present. In this patient with this given history, scrutiny is given to cerebellopontine angle cisterns and to the internal auditory canals. To the limits of this standard protocol study, no masses or abnormal enhancement can be seen within these regions. Skull and face: Calvarial marrow is normal in signal. Orbits appear normal. Sinuses: Moderate mucosal thickening can be seen within the maxillary sinuses, with milder mucosal thickening seen elsewhere within the paranasal sinuses. No abnormal fluid is seen within the mastoid air cells. IMPRESSION: No imaging explanation is found for this patient's presenting symptoms. No masses or abnormal enhancement can be seen. Paranasal sinus disease is noted, which is worst within the maxillary sinuses. Dictated by: Artis Haywood M.D. on 03/15/2023 at 17:15 Approved by: Artis Haywood M.D. on 03/15/2023 at 17:16
== END ==
PROVIDERS: PCP Registered Nurse Diabetes Educator; Referring Provider Registered Nurse Diabetes Educator; Visit Provider Registered Nurse Diabetes Educator
DX: H54.7 Unspecified visual loss (principal); R20.2 Paresthesia of skin; H91.92 Unspecified hearing loss, left ear; M79.672 Pain in left foot; J32.9 Chronic sinusitis, unspecified
CPT/HCPCS: 70553; 72156; 72157; A9579

== ENCOUNTER → 2023-04-04 13:34 | Outpatient (CLI) | payer OTHER, MEDICAID, SELFPAY ==
[2023-03-20 09:35] VITALS: BMI 31.8
--- NOTE | 2023-04-04 13:36 | DI.RAD.S_ITS ---
PROCEDURE: XR CERVICAL SPINE 4V OR 5V INDICATIONS: NECK PAIN TECHNIQUE: 5 views of the cervical spine acquired. COMPARISON: [facility], MR, MR CERVICAL SPINE WO/W CON, 03/15/2023, 16:13. [facility], MR, MR THORACIC SPINE WO/W CON, 03/15/2023, 16:13. FINDINGS: Bones: No fractures or dislocations to the T1 level. Odontoid and lateral masses of C2 are intact. Degenerative disc disease, moderate at C3-C4, mild at C4-C5 and C5-C6. Oblique images demonstrate moderate foraminal stenosis at C4-C5 and C6-C7 left, and at C3-C4, C4-C5, C5-C6 and C6-C7 on the right. Soft tissues: No prevertebral soft tissue swelling. IMPRESSION: 1. Moderate degenerative disc disease in cervical spine as described. 2. Moderate foraminal stenoses bilaterally at multiple levels. Dictated by: Christie Foreman M.D. on 04/04/2023 at 14:20 Approved by: Christie Foreman M.D. on 04/04/2023 at 14:24
== END ==
PROVIDERS: PCP Registered Nurse Diabetes Educator; Referring Provider Anesthesiology; Visit Provider Anesthesiology
DX: M50.31 Other cervical disc degeneration, high cervical region (principal); M48.02 Spinal stenosis, cervical region
CPT/HCPCS: 72050; 99214

== ENCOUNTER → 2023-07-09 16:19 | Outpatient (CLI) | payer OTHER, SELFPAY ==
[2023-03-20 09:35] VITALS: BMI 31.8
[2023-07-09 16:55] LABS: Hematocrit 39.9 % (36-46); Hemoglobin 13.3 g/dL (12.0-16.0); Mean Corpuscular HGB Conc 33.3 % (30-36); Mean Corpuscular Hemoglobin 29.5 PG (26-34); Mean Corpuscular Volume 88.6 fL (80-100); Platelet Count 409 X10^3/uL (150-400); Red Cell Distribution Width 13.4 % (11.6-14.8); White Blood Cell Count 12.3 X10^3/uL (4.5-11.0)
[2023-07-09 17:55] LABS: Alanine Aminotransferase 23 IU/L (<35); Albumin 4.4 g/dL (3.5-5.0); Albumin Globulin Ratio 1.2 (1.0-2.8); Alkaline Phosphatase 97 U/L (38-126); Aspartate Aminotransferase 27 IU/L (14-36); BUN Creatinine Ratio 8.2 (6-22); Bilirubin Total 0.6 mg/dL (0.2-1.3); Blood Urea Nitrogen 5 mg/dL (7-17); Calcium 9.4 mg/dL (8.4-10.2); Carbon Dioxide 29 mmol/L (22-32); Chloride 105 mmol/L (98-107); Cholesterol 213 mg/dL (140-199); Estimated Glomerular Filt Rate > 60 mL/min (>60); Globulin 3.7 g/dL (1.7-4.1); Glucose 90 mg/dL (70-100); HDL Cholesterol 58 mg/dL (40-60); HEMOLYSIS < 15 (0-50); LDL Cholesterol Calculated 135 mg/dL (<100); Potassium 3.5 mmol/L (3.4-5.1); Sodium 139 mmol/L (137-145); Total Protein 8.1 g/dL (6.3-8.2); Triglycerides 102 mg/dL (35-150)
== END ==
LOC: LAB 16:19
PROVIDERS: PCP Registered Nurse Diabetes Educator; Referring Provider Registered Nurse Diabetes Educator; Visit Provider Registered Nurse Diabetes Educator
DX: E89.0 Postprocedural hypothyroidism (principal); E78.5 Hyperlipidemia, unspecified; R53.83 Other fatigue
CPT/HCPCS: 36415; 80053; 80061; 84439; 84443; 85027

== ENCOUNTER → 2023-10-18 15:37 | Outpatient (CLI) | payer OTHER, SELFPAY ==
[2023-03-20 09:35] VITALS: BMI 31.8
[2023-10-18 16:17] LABS: Add Manual Diff / Slide Review NO; Basophils Absolute Auto 0 /uL (0-100); Basophils Percent Auto 0.3 % (0-2); Eosinophils Absolute Auto 200 /uL (0-450); Eosinophils Percent Auto 2.1 % (2-4); Hematocrit 38.8 % (36-46); Hemoglobin 13.1 g/dL (12.0-16.0); Lymphocytes Absolute Auto 1800 /uL (1100-4500); Lymphocytes Percent Auto 19.4 % (25-40); Mean Corpuscular HGB Conc 33.8 % (30-36); Mean Corpuscular Hemoglobin 29.7 PG (26-34); Mean Corpuscular Volume 87.9 fL (80-100); Monocytes Absolute Auto 800 /uL (0-900); Monocytes Percent Auto 8.3 % (3-14); Neutrophils Absolute Auto 6700 /uL (1500-7000); Neutrophils Percent Auto 69.9 % (50-75); Platelet Count 372 X10^3/uL (150-400); Red Blood Cell Count 4.41 X10^6/uL (4.0-5.2); Red Cell Distribution Width 13.1 % (11.6-14.8); White Blood Cell Count 9.5 X10^3/uL (4.5-11.0)
[2023-10-18 17:07] LABS: TSH w/ Reflex to FT4 0.07 uIU/mL (0.47-4.68)
[2023-10-18 18:02] LABS: Free T4, Direct Thyroxine 0.87 ng/dL (0.78-2.19)
== END ==
PROVIDERS: PCP Registered Nurse Diabetes Educator; Referring Provider Registered Nurse Diabetes Educator; Visit Provider Registered Nurse Diabetes Educator
DX: E89.0 Postprocedural hypothyroidism (principal); D72.829 Elevated white blood cell count, unspecified
CPT/HCPCS: 36415; 84439; 84443; 85025

== ENCOUNTER → 2025-02-20 12:01 | Outpatient (CLI) | payer OTHER, SELFPAY ==
[2023-03-20 09:35] VITALS: BMI 31.8
[2025-02-20 12:28] LABS: Hematocrit 38.8 % (36-46); Hemoglobin 13.0 g/dL (12.0-16.0); Mean Corpuscular HGB Conc 33.6 % (30-36); Mean Corpuscular Hemoglobin 28.9 PG (26-34); Mean Corpuscular Volume 86.1 fL (80-100); Platelet Count 423 X10^3/uL (150-400)
[2025-02-20 13:11] LABS: Alanine Aminotransferase 20 IU/L (<35); Albumin 4.1 g/dL (3.5-5.0); Albumin Globulin Ratio 1.4 (1.0-2.8); Alkaline Phosphatase 79 U/L (38-126); Blood Urea Nitrogen 12 mg/dL (7-17); Calcium 9.4 mg/dL (8.4-10.2); Carbon Dioxide 27 mmol/L (22-32); Chloride 103 mmol/L (98-107); Cholesterol 175 mg/dL (140-199); Estimated Glomerular Filt Rate > 60 mL/min (>60); Globulin 3.0 g/dL (1.7-4.1); Glucose 121 mg/dL (70-99); HDL Cholesterol 48 mg/dL (40-60); HEMOLYSIS < 15 (0-50); Potassium 4.1 mmol/L (3.4-5.1); Sodium 138 mmol/L (137-145); Total Protein 7.1 g/dL (6.3-8.2); Triglycerides 104 mg/dL (35-150)
[2025-02-20 13:40] LABS: TSH w/ Reflex to FT4 0.02 uIU/mL (0.47-4.68)
[2025-02-20 14:41] LABS: Free T4, Direct Thyroxine 1.29 ng/dL (0.78-2.19)
== END ==
PROVIDERS: PCP Registered Nurse Diabetes Educator; Referring Provider Registered Nurse Diabetes Educator; Visit Provider Registered Nurse Diabetes Educator
DX: Z00.00 Encounter for general adult medical examination without abnormal findings (principal); E78.5 Hyperlipidemia, unspecified; E89.0 Postprocedural hypothyroidism; Z85.850 Personal history of malignant neoplasm of thyroid
CPT/HCPCS: 36415; 80053; 80061; 84439; 84443; 85027